=== PATIENT | female | born 1935 | race Hispanic/Latino ===

== ENCOUNTER 2016-07-14 00:21 | Inpatient (IN) | payer MEDICARE, BC ==
[2016-07-14] MEDS ORDERED: Vancomycin 1 gm/NS 200 ml 200 ML IVPB STA (00:53)
[2016-07-14] MEDS ORDERED: Aztreonam 2 GM in Sodium Chloride 0.9% 100 ML IVPB STA (00:53)
--- NOTE | 2016-07-14 00:59 | C.PDOC ---
History Of Present Illness 81F biba from snf for fever. pt denies any complaints, unable to provide further hx. Time Seen by Provider: 07/14/16 00:40 Chief Complaint (Nursing): Fever Past Medical History Vital Signs: Last Vital Signs Temp 99.3 F 07/17/16 04:00 Pulse 63 07/17/16 04:00 Resp 20 07/17/16 04:00 BP 93/47 L 07/17/16 10:44 Pulse Ox 100 07/17/16 04:00 - Medical History PMH: Anxiety, Arthritis, Back Problems, Gall Bladder Disease, HTN (STRESS TEST [address] DR RODRIGUEZ), Seizures (last one about 15 years ago) Surgical History: Appendectomy (at 20 years old), Cholecystectomy (around 1977) - [facility] Procedures ANESTH INJECT-SPIN CANAL (02/01/14) EXCISION OF ASCENDING COLON, ENDO, DIAGN (06/10/16) EXCISION OF SIGMOID COLON, ENDO, DIAGN (06/10/16) EXCISION OF TRANSVERSE COLON, ENDO, DIAGN (06/10/16) INJECT STEROID (11/29/14) INTRODUCTION OF ANTI-INFLAMMATORY INTO JOINTS, PERC APPROACH (06/10/16) SPINAL CANAL INJECT NEC (11/29/14) Family History: States: Unknown Family Hx - Social History Hx Tobacco Use: No Hx Alcohol Use: No Hx Substance Use: No - Immunization History Hx Tetanus Toxoid Vaccination: Yes Hx Influenza Vaccination: No Hx Pneumococcal Vaccination: No Review Of Systems Review Of Systems: ROS cannot be obtained secondary to pt's inabilty to answer questions. Physical Exam - Physical Exam Appears: No Acute Distress Skin: Warm, Dry Head: Atraumatic Eye(s): bilateral: PERRL, EOMI Oral Mucosa: Dry Neck: Normal ROM Cardiovascular: Rhythm Regular Respiratory: No Decreased Breath Sounds, No Accessory Muscle Use Gastrointestinal/Abdominal: Soft, No Tenderness, No Distention Extremity: No Swelling Pulses: Left Radial: Normal, Right Radial: Normal Neurological/Psych: Other (no focla deficits) ED Course And Treatment - Laboratory Results Result Diagrams: 07/17/16 06:36 07/17/16 06:36 O2 Sat by Pulse Oximetry: 90 Critical Care Time - Critical Care Note Total Time (in mins): 45 Documented critical care: time excludes all time spent performing seperately billable procedures. Endotracheal Intubation - Endotracheal Intubation Intubated With ETT Size: 7 (7.5) Blade Type Used: Curved (glide scope) Intubated: Orally Pre-Intubation Airway Assessment: Ventilated And Oxygenated Medications Used During Pre-Intubation: Etomidate Paralyzed With: Succinylcholine Post-Intubation Assessment: ETT Secured AT (cm): (23), Breath Sounds Equal Bilat , Placement Confirmed Via CXR, Color Change W/End Tidal CO2 Detector Medical Decision Making Medical Decision Making: cxr- mild venous congestion The pts BP improved w IVF bolus from low 80s to high 90s/100s 250am shortly after starting vanco the pt turned diffusely red and developed acute resp failure w spo2 into 60's and altered mental status. for this reason she was intubated emergently. esau padilla pcp dr valentine padilla ICU doctor for admission Disposition - Disposition Disposition: HOSPITALIZED Disposition Time: 03:12 Condition: GUARDED - Clinical Impression Clinical Impression: Sepsis, Acute respiratory failure
[2016-07-14 01:03] LABS: VENOUS BLOOD GAS BASE EXCESS -1.7 mmol/L (0.0-2.0); VENOUS BLOOD GAS PCO2 33 mmHg (40-60); VENOUS BLOOD PH 7.43 (7.32-7.43)
[2016-07-14 01:06] LABS: BASO # 0.1 K/uL (0.0-0.2); BASO % 0.2 % (0.0-2.0); EOS # 0.1 K/uL (0.0-0.7); EOS % 0.1 % (0.0-4.0); HEMATOCRIT 33.2 % (34.0-47.0); LYMPH # 1.1 K/uL (1.0-4.3); LYMPH % 3.1 % (20.0-40.0); MEAN CELL VOLUME 82.2 fL (81.0-99.0); MEAN CORPUSCULAR HEMOGLOBIN 27.8 pg (27.0-31.0); MEAN CORPUSCULAR HGB CONC 33.8 g/dL (33.0-37.0); MEAN PLATELET VOLUME 7.6 fL (7.2-11.7); MONO # 4.2 K/uL (0.0-0.8); MONO % 11.6 % (0.0-10.0); RED CELL DISTRIBUTION WIDTH 14.2 % (11.5-14.5)
[2016-07-14 01:13] LABS: PLATELET COUNT 308 K/uL (130-400); WHITE BLOOD COUNT 36.3 K/uL (4.8-10.8)
[2016-07-14 01:33] LABS: METAMYELOCYTE 4 % (0-0); MYELOCYTE 2 % (0-0); NEUTROPHIL 46 % (50-75); TOTAL CELLS COUNTED 100
[2016-07-14 01:45] LABS: INR 1.3
[2016-07-14 02:02] LABS: ALB/GLOB RATIO 0.9 (1.0-2.1); ALKALINE PHOSPHATASE 68 U/L (38-126); ALT/SGPT 18 U/L (9-52); AST/SGOT 39 U/L (14-36); BILIRUBIN,TOTAL 0.5 mg/dL (0.2-1.3); BLOOD UREA NITROGEN 21 mg/dL (7-17); CALCIUM 7.5 mg/dl (8.6-10.4); CARBON DIOXIDE 17 mmol/L (22-30); CHLORIDE 83 mmol/L (98-107); GFR AFRICAN-AMERICAN > 60; GLUCOSE,RANDOM 94 mg/dL (65-105); MAGNESIUM 1.5 mg/dL (1.6-2.3); PHOSPHOROUS 2.8 mg/dL (2.5-4.5); POTASSIUM 3.7 mmol/L (3.6-5.2); TOTAL PROTEIN 6.1 g/dL (6.3-8.3)
[2016-07-14 02:07] LABS: SODIUM 117 mmol/L (132-148)
[2016-07-14 02:25] LABS: URINE BILIRUBIN NEGATIVE (NEGATIVE); URINE BLOOD NEGATIVE (NEGATIVE); URINE COLOR Yellow (YELLOW); URINE GLUCOSE (UA) NORMAL (Normal); URINE KETONE NEGATIVE (NEGATIVE); URINE LEUKOCYTE ESTERASE NEG Leu/uL (Negative); URINE PROTEIN NEGATIVE (NEGATIVE); URINE UROBILINOGEN NORMAL mg/dL (0.2-1.0); WBC URINE 2 /hpf (0-5)
[2016-07-14] MEDS ORDERED: Midazolam 2 MG/2 ML VIAL ONE (03:03)
[2016-07-14] MEDS ORDERED: Midazolam 2 MG/2 ML VIAL IVP ONE (03:11)
[2016-07-14] MEDS ORDERED: DiphenhydrAMINE 50 mg/ml Inj IVP STA (03:15)
[2016-07-14] MEDS ORDERED: Succinylcholine Chloride 20 mg/ml Syr (5 ml) IV STA (03:27)
[2016-07-14] MEDS ORDERED: Etomidate 20 mg/10ml Inj IV ONE (03:27)
[2016-07-14] MEDS ORDERED: DiphenhydrAMINE 50 mg/ml Inj ONE (03:36)
--- NOTE | 2016-07-14 04:13 | CP.PCM.CON ---
History of Present Illness - History of Present Illness History of Present Illness: CCM 81 yo female with hx Arthritis /Anxiety /HTN /Seizures /Back problems /GB Dz , BIBA b/o fever. also c/o epigastric pain and nausea. + diarrhea and hx C.diff.Pt not giving much hx to ED staff per notes and code sepsis was activated. Started on Ab and after vanco started pt became red and had resp distress requiring intubation. Vanco stopped and pt given benadryl / steroids. Currently intubated and sedated and unable to give hx. Pt being sent for Brain and Abdomen CT. ROS_ as noted All- PCN / Influenza vaccine Social- no tob/ etoh/ drugs Meds- reviewed FH- Unknown PE T-97.7 P-90 R-16 BP 141/65 Intubated, sedated Pupils reactive Neck- no jvd Lungs- bilat bs Heart-rr aBd- bs+ , soft, nontender Ext-no edema Labs, ekg, [id number] A&P Acute Resp Failure Allergic Rxn Sepsis r/o C.Diff Colitis Hyponatremia Hx HTN Arthritis Hx Anxiety Hx Seizures Admit to ICU cont IV NS vent support check cultures Rx Cipro/flagyl check urine lytes /osm check serum osm/ repeat lactate/ BMP /ABG DVT & GI prophylaxis Past Patient History - Infectious Disease Hx of Infectious Diseases: None - Tetanus Immunizations Tetanus Immunization: Unknown, >10 years Ago - Past Medical History & Family History Past Medical History?: Yes - Past Social History Smoking Status: Never Smoked - CARDIAC Hx Hypertension: Yes (STRESS TEST [address] RODRIGUEZ) - PULMONARY Hx Respiratory Disorders: No - NEUROLOGICAL Hx Seizures: Yes (last one about 15 years ago) - HEENT Hx HEENT Problems: Yes Hx Cataracts: Yes - RENAL Hx Chronic Kidney Disease: No - ENDOCRINE/METABOLIC Hx Endocrine Disorders: No - HEMATOLOGICAL/ONCOLOGICAL Hx Blood Disorders: No - INTEGUMENTARY Hx Dermatological Problems: No - MUSCULOSKELETAL/RHEUMATOLOGICAL Hx Arthritis: Yes - GASTROINTESTINAL Hx Gall Bladder Disease: Yes - GENITOURINARY/GYNECOLOGICAL Hx Genitourinary Disorders: Yes Hx Incontinence: Yes - PSYCHIATRIC Hx Anxiety: Yes Hx Substance Use: No - SURGICAL HISTORY Hx Appendectomy: Yes (at 20 years old) Hx Cholecystectomy: Yes (around 1977) - ANESTHESIA Hx Anesthesia: Yes Hx Anesthesia Reactions: Yes (difficulty waking up) Hx Malignant Hyperthermia: No Meds Allergies/Adverse Reactions: Allergies Allergy/AdvReac Type Severity Reaction Status Date / Time Influenza Virus Vaccines Allergy COUGH Verified 07/14/16 01:03 Penicillins Allergy URTICARIA Verified 07/14/16 01:03 - Medications Medications: Current Medications Fentanyl Citrate 2,500 mcg/ (Sodium Chloride) 250 mls @ 5 mls/hr IV .Q24H YAMILETH; 50 MCG/HR PRN Reason: Protocol Results - Vital Signs Recent Vital Signs: Last Vital Signs Temp 97.7 F 07/14/16 02:03 Pulse 99 H 07/14/16 03:49 Resp 16 07/14/16 03:49 BP 141/65 07/14/16 03:49 Pulse Ox 97 07/14/16 03:49 - Labs Result Diagrams: 07/14/16 06:08 07/14/16 01:01 Assessment & Plan (1) Acute respiratory failure Status: Acute (2) Allergic reaction caused by a drug Status: Acute (3) Sepsis Status: Acute (4) Hyponatremia Status: Acute (5) Hypertension Status: Chronic Priority: Low
--- NOTE | 2016-07-14 04:38 | CT ---
EXAM: CT Head Without Intravenous Contrast. CLINICAL HISTORY: 81 years old, female; Pain; Other: Sepsis; Patient HX: 06-04-16; Additional info: AMS TECHNIQUE: Axial computed tomography images of the head/brain without intravenous contrast. This CT exam was performed using one or more of the following dose reduction techniques: automated exposure control, adjustment of the mA and/or kV according to patient size, and/or use of iterative reconstruction technique. COMPARISON: CT - HEAD W/O CONTRAST 06/04/2016 8:24:51 PM FINDINGS: Limitations: Motion artifact - mild. Streak artifact - mild. Brain: [id number] atrophy. No definite intracranial hemorrhage. No mass. Dilated perivascular space vs chronic lacunar infarct about RIGHT basal ganglia. No definite edema. Ventricles: No hydrocephalus. Bones/joints: No acute fracture. Soft tissues: Unremarkable. Sinuses: No acute sinusitis. Mastoid air cells: No mastoid effusion. Orbits: Unremarkable as visualized. Tubes, lines and devices: Endotracheal tube. IMPRESSION: 1. No definite acute intracranial abnormality. Acute infarction may be CT occult within first 24 hours. If a focal deficit persists, consider followup CT or MRI for further evaluation. 2. Incidental/non-acute findings are described above.
--- NOTE | 2016-07-14 04:48 | CT ---
EXAM: CT Abdomen and Pelvis Without Intravenous Contrast. CLINICAL HISTORY: 81 years old, female; Pain; Abdominal pain; Patient HX: 16; Additional info: Sepsis unclear source TECHNIQUE: Axial computed tomography images of the abdomen and pelvis without intravenous contrast. This CT exam was performed using one or more of the following dose reduction techniques: automated exposure control, adjustment of the mA and/or kV according to patient size, and/or use of iterative reconstruction technique. Coronal and sagittal reformatted images were created and reviewed. COMPARISON: No relevant prior studies available. FINDINGS: Limitations: Motion artifact - mild. Streak artifact - mild. Lack of intravenous contrast. Lower thorax: Trace bilateral pleural effusions. Mild peripheral atelectasis/scarring with minimal bronchiectasis. Mild interlobular septal thickening, nonspecific. Small hiatal hernia. ABDOMEN: Liver: Unremarkable. Gallbladder and bile ducts: Gallbladder not visualized. No ductal dilation. Pancreas: Unremarkable. No ductal dilation. Spleen: 6.0 x 4.6 x 4.7 cm peripherally calcified lesion. No splenomegaly. Adrenals: No mass. Kidneys and ureters: No renal calculi. No hydronephrosis. Stomach and bowel: Mild to moderate mural thickening of large bowel with few areas of sparing. Mild stranding within adjacent fat. Appendix: No findings to suggest acute appendicitis. PELVIS: Bladder: Collapsed bladder around Kowalski catheter, limiting evaluation. Reproductive: Unremarkable as visualized. ABDOMEN and PELVIS: Intraperitoneal space: No significant fluid collection. No free air. Bones/joints: RIGHT hip arthroplasty. Subacute to chronic T9 compression deformity. Degenerative changes of spine. Soft tissues: Unremarkable. Vasculature: Mild atherosclerotic disease. No abdominal aortic aneurysm. Lymph nodes: No pathologically enlarged lymph nodes. IMPRESSION: 1. Colitis, nonspecific. Consider inflammatory or infectious etiologies. 2. Splenic lesion, indeterminate. Consider nonemergent MRI. 3. Incidental/non-acute findings are described above.
[2016-07-14 05:45] LABS: ABG ALLEN TEST POS; ABG MECHANICAL RATE 14; ATERIAL BLOOD GAS PEEP 5; DRAW SITE LR
[2016-07-14] MEDS ORDERED: Sodium Chloride 0.9% 500 ML IV ONE (05:52)
[2016-07-14] MEDS: Sodium Chloride 0.9% 1,000 ML IV SCH ×4 (06:06→20:50)
[2016-07-14 06:16] LABS: BASO # 0.1 K/uL (0.0-0.2); BASO % 0.2 % (0.0-2.0); EOS % 0.1 % (0.0-4.0); HEMATOCRIT 38.5 % (34.0-47.0); LYMPH # 1.7 K/uL (1.0-4.3); LYMPH % 3.5 % (20.0-40.0); MEAN CELL VOLUME 82.7 fL (81.0-99.0); MEAN CORPUSCULAR HEMOGLOBIN 27.7 pg (27.0-31.0); MEAN CORPUSCULAR HGB CONC 33.5 g/dL (33.0-37.0); MEAN PLATELET VOLUME 8.2 fL (7.2-11.7); MONO # 4.5 K/uL (0.0-0.8); MONO % 8.9 % (0.0-10.0); PLATELET COUNT 406 K/uL (130-400); RED CELL DISTRIBUTION WIDTH 14.5 % (11.5-14.5)
[2016-07-14 06:24] LABS: WHITE BLOOD COUNT 50.1 K/uL (4.8-10.8)
[2016-07-14 06:28] LABS: POTASSIUM 3.5 mmol/L (3.6-5.2)
[2016-07-14 06:30] LABS: ALB/GLOB RATIO 0.7 (1.0-2.1); BILIRUBIN,TOTAL 0.9 mg/dL (0.2-1.3); TOTAL PROTEIN 5.5 g/dL (6.3-8.3)
[2016-07-14 06:31] LABS: CALCIUM 6.9 mg/dl (8.6-10.4); MAGNESIUM 1.6 mg/dL (1.6-2.3); PHOSPHOROUS 3.7 mg/dL (2.5-4.5)
[2016-07-14] MEDS ORDERED: Sodium Chloride 0.9% 1,000 ML IV ONE (06:36)
[2016-07-14] MEDS ORDERED: Ciprofloxacin 400mg/200ml D5W 200 ML IVPB SCH (06:45)
[2016-07-14 06:58] LABS: THYROID STIMULATING HORMONE 7.83 mIU/L (0.46-4.68)
[2016-07-14] MEDS: metroNIDAZOLE IV 500 mg/100 ml 100 ML IVPB SCH ×3 (07:02→21:57)
[2016-07-14 08:03] LABS: METAMYELOCYTE 1 % (0-0); MYELOCYTE 2 % (0-0); NEUTROPHIL 31 % (50-75); REACTIVE LYMPHOCYTES 1 % (0-0); TOTAL CELLS COUNTED 100
[2016-07-14 08:05] LABS: GIANT PLATELETS PRESENT; LARGE PLATELETS PRESENT; PLATELET CLUMPS PRESENT
[2016-07-14] MEDS ORDERED: Potassium Chloride 20 mEq 100 ML IVPB ONE ×2 (08:52→09:42)
--- NOTE | 2016-07-14 08:59 | RAD ---
HISTORY: Sepsis Patient COMPARISON: 06/04/2016 FINDINGS: LUNGS: Developing hazy opacity overlying the right upper lobe. Mild opacities in the lung bases. PLEURA: No significant pleural effusion identified, no pneumothorax apparent.Biapical pleural parenchymal thickening noted. CARDIOVASCULAR: Normal. OSSEOUS STRUCTURES: The osseous structures demonstrate degenerative changes. VISUALIZED UPPER ABDOMEN: Rounded opacity overlying the projection of the subdiaphragmatic left upper abdomen, stable. Otherwise the abdomen remains suboptimally seen. OTHER FINDINGS: None. IMPRESSION: Developing hazy opacity overlying the right upper lobe. Infectious etiologies can be considered. Follow-up should be obtained.
--- NOTE | 2016-07-14 09:07 | RAD ---
HISTORY: tube placement COMPARISON: 07/14/2016 FINDINGS: LUNGS: Hazy opacity in the right upper lobe. PLEURA: No significant pleural effusion identified, no pneumothorax apparent. CARDIOVASCULAR: Stable cardiomediastinal silhouette. Tortuous ascending aorta. OSSEOUS STRUCTURES: The osseous structures demonstrate degenerative changes. VISUALIZED UPPER ABDOMEN: Upper abdomen is suboptimally evaluated. Rounded opacity overlying the projection of the spleen again seen. OTHER FINDINGS: Interval introduction of endotracheal tube with the distal tip above the tracheal bifurcation. IMPRESSION: Interval introduction of endotracheal tube with the distal tip above the tracheal bifurcation. Other findings as above.
--- NOTE | 2016-07-14 09:18 | RAD ---
HISTORY: TLC placement COMPARISON: 07/14/2016. FINDINGS: LUNGS: Re- demonstration of possible hazy opacity in the right upper lobe. PLEURA: No significant pleural effusion identified, no pneumothorax apparent. CARDIOVASCULAR: Normal. OSSEOUS STRUCTURES: The osseous structures demonstrate degenerative changes. VISUALIZED UPPER ABDOMEN: Upper abdomen is suboptimally evaluated. Re- demonstration of a circular opacity in the left upper quadrant. OTHER FINDINGS: Interval introduction of presumed vascular catheter with the distal tip overlying the projection of the expected location of the SVC. IMPRESSION: Findings as above.
[2016-07-14] MEDS: Vancomycin 125 MG/5 ML SOLN (ORAL/RECTAL) PO SCH ×4 (11:04→21:59)
[2016-07-14] MEDS: Imipenem/Cilastatin 250 MG in Sodium Chloride 100 ML IVPB SCH ×3 (12:18→23:30)
--- NOTE | 2016-07-14 12:24 | CP.PCM.CON ---
History of Present Illness - History of Present Illness History of Present Illness: CC: Sepsis HPI: Patient admitted overnight with septic shock, intubated, diarrhea, marked leukocytosis. Patient discharged from one month ago. We consulted on the patient at that admission for diarrhea and colon distension. Multiple stools for CDiff were negative, and patient had not been on antibiotics. A colonoscopy was performed and was essentially unremarkable, and numerous biopsies from the colon were nondiagnostic. Stool electrolytes showed an osmotic gap of 200, consistent with osmotic diarrhea. The diarrhea and abdominal distension on that admission resolved with conservative therapy. Now the patient is intubated, on pressors, and appears to be septic. CT Abdomen shows mild colon thickening, possibly consistent with Colitis. She also has Phillips's Esophagus, and a longstanding history of chronic constipation, dependent on Linzess and Miralax, followed by Dr Lau in [place]. Review of Systems - Review of Systems Systems not reviewed;Unavailable: Unstable Vital Signs, Intubated Past Patient History - Infectious Disease Hx of Infectious Diseases: None - Tetanus Immunizations Tetanus Immunization: Unknown, >10 years Ago - Past Medical History & Family History Past Medical History?: Yes - Past Social History Smoking Status: Never Smoked Alcohol: None - CARDIAC Hx Hypertension: Yes (STRESS TEST [address] DR RODRIGUEZ) - PULMONARY Hx Respiratory Disorders: No - NEUROLOGICAL Hx Seizures: Yes (last one about 15 years ago) - HEENT Hx HEENT Problems: Yes Hx Cataracts: Yes - RENAL Hx Chronic Kidney Disease: No - ENDOCRINE/METABOLIC Hx Endocrine Disorders: No - HEMATOLOGICAL/ONCOLOGICAL Hx Blood Disorders: No - INTEGUMENTARY Hx Dermatological Problems: No - MUSCULOSKELETAL/RHEUMATOLOGICAL Hx Arthritis: Yes - GASTROINTESTINAL Hx Gall Bladder Disease: Yes - GENITOURINARY/GYNECOLOGICAL Hx Genitourinary Disorders: Yes Hx Incontinence: Yes - PSYCHIATRIC Hx Anxiety: Yes Hx Substance Use: No - SURGICAL HISTORY Hx Appendectomy: Yes (at 20 years old) Hx Cholecystectomy: Yes (around 1977) - ANESTHESIA Hx Anesthesia: Yes Hx Anesthesia Reactions: Yes (difficulty waking up) Hx Malignant Hyperthermia: No Meds Allergies/Adverse Reactions: Allergies Allergy/AdvReac Type Severity Reaction Status Date / Time Influenza Virus Vaccines Allergy COUGH Verified 07/14/16 01:03 Penicillins Allergy URTICARIA Verified 07/14/16 01:03 vancomycin Allergy Verified 07/14/16 07:09 - Medications Medications: Current Medications Acetaminophen (Tylenol 325mg Tab) 650 mg PO Q4 PRN PRN Reason: Fever >100.4 F Famotidine (Pepcid) 20 mg IVP Q12 [facility] Last Admin: 07/14/16 09:52 Dose: 20 mg Heparin Sodium (Porcine) (Heparin) 5,000 units SC Q8 [facility] Last Admin: 07/14/16 06:08 Dose: 5,000 units Sodium Chloride (Sodium Chloride 0.9%) 1,000 mls @ 200 mls/hr IV .Q5H [facility] Last Admin: 07/14/16 08:00 Dose: 200 mls/hr Metronidazole (Flagyl) 100 mls @ 100 mls/hr IVPB Q8 [facility] Last Admin: 07/14/16 07:02 Dose: 100 mls/hr Norepinephrine Bitartrate 4 mg (/ Sodium Chloride) 254 mls @ 15.24 mls/hr IV .[id number] PRN; Protocol; 4 MCG/MIN PRN Reason: TITRATE PER MD ORDER Last Titration: 07/14/16 10:32 Dose: 6 mcg/min Imipenem/Cilastatin Sodium 250 (mg/ Sodium Chloride) 100 mls @ 100 mls/hr IVPB Q6H [facility] Last Admin: 07/14/16 12:18 Dose: 100 mls/hr Vancomycin HCl (Vancocin (Oral Or Rectal Use)) 500 mg PO QID [facility] Last Admin: 07/14/16 11:04 Dose: 500 mg Physical Exam - Constitutional Appears: Toxic, In Acute Distress Additional comments: Pale - Head Exam Head Exam: NORMOCEPHALIC - Eye Exam Eye Exam: absent: Scleral icterus - ENT Exam ENT Exam: Mucous Membranes Dry Additional comments: ETT - Neck Exam Neck exam: Positive for: Normal Inspection - Respiratory Exam Respiratory Exam: Decreased Breath Sounds - Cardiovascular Exam Cardiovascular Exam: Tachycardia, REGULAR RHYTHM - GI/Abdominal Exam GI & Abdominal Exam: Hypoactive Bowel Sounds, Soft. absent: Distended, Mass, Tenderness - Rectal Exam Rectal Exam: Deferred - Extremities Exam Extremities exam: Positive for: normal inspection - Neurological Exam Neurological exam: Altered Additional comments: Sedated - Psychiatric Exam Additional comments: Unable to assess - Skin Skin Exam: Pallor Results - Vital Signs Recent Vital Signs: Last Vital Signs Temp 99.1 F 07/14/16 08:00 Pulse 72 07/14/16 09:42 Resp 14 07/14/16 09:42 BP 80/42 L 07/14/16 09:42 Pulse Ox 100 07/14/16 09:42 - Labs Result Diagrams: 07/14/16 06:08 07/14/16 06:08 Labs: Laboratory Results - last 24 hr 07/14/16 07/14/16 07/14/16 05:25 06:08 06:14 WBC 50.1 H* RBC 4.66 Hgb 12.9 Hct 38.5 MCV 82.7 MCH 27.7 MCHC 33.5 RDW 14.5 Plt Count 406 H MPV 8.2 Neut % (Auto) 87.3 H Lymph % (Auto) 3.5 L Victoria % (Auto) 8.9 Eos % (Auto) 0.1 Baso % (Auto) 0.2 Neut # 43.8 H Lymph # 1.7 Victoria # 4.5 H Eos # 0.0 Baso # 0.1 Neutrophils % (Manual) 31 L Band Neutrophils % 55 H* Lymphocytes % (Manual) 2 L Reactive Lymphs % 1 H Monocytes % (Manual) 8 Metamyelocytes % 1 H Myelocytes % 2 H Toxic Granulation Present Dohle Bodies Present Anayeli Rods Platelet Estimate Slightly increased H Plt Clumps, EDTA Present Large Platelets Present Giant Platelets Present Poikilocytosis (manual Slight Ovalocytes Slight Smear Path Review Puncture Site Lr pCO2 29 L pO2 312 H HCO3 18.6 L ABG pH 7.35 ABG Total CO2 16.9 L ABG O2 Saturation 100.0 H ABG Base Excess -8.2 L Wesley Test Pos ABG Potassium 3.3 L A-a O2 Difference 365.0 Respiratory Index 1.2 Sodium 122.0 L 118 L* Chloride 96.0 L 87 L Glucose 107 H Lactate 2.0 Mechanical Rate 14 FiO2 100.0 Tidal Volume 500 PEEP 5 Potassium 3.5 L Carbon Dioxide 17 L Anion Gap 18 BUN 23 H Creatinine 1.1 Est GFR ( Amer) 58 Est GFR (Non-Af Amer) 48 Random Glucose 112 H Serum Osmolality 259 L Lactic Acid 1.9 Calcium 6.9 L Phosphorus 3.7 Magnesium 1.6 Total Bilirubin 0.9 AST 49 H D ALT 26 Alkaline Phosphatase 68 Total Protein 5.5 L Albumin 2.3 L D Globulin 3.2 Albumin/Globulin Ratio 0.7 L TSH 3rd Generation 7.83 H Arterial Blood Potassium 3.3 L Urine Osmolality Ur Random Sodium Influenza Typ A,B (EIA) 07/14/16 07/14/16 07/14/16 06:21 07:57 10:43 WBC RBC Hgb Hct MCV MCH MCHC RDW Plt Count MPV Neut % (Auto) Lymph % (Auto) Victoria % (Auto) Eos % (Auto) Baso % (Auto) Neut # Lymph # Victoria # Eos # Baso # Neutrophils % (Manual) Band Neutrophils % Lymphocytes % (Manual) Reactive Lymphs % Monocytes % (Manual) Metamyelocytes % Myelocytes % Toxic Granulation Dohle Bodies Anayeli Rods Platelet Estimate Plt Clumps, EDTA Large Platelets Giant Platelets Poikilocytosis (manual Ovalocytes Smear Path Review Puncture Site pCO2 pO2 HCO3 ABG pH ABG Total CO2 ABG O2 Saturation ABG Base Excess Wesley Test ABG Potassium A-a O2 Difference Respiratory Index Sodium Chloride Glucose Lactate Mechanical Rate FiO2 Tidal Volume PEEP Potassium Carbon Dioxide Anion Gap BUN Creatinine Est GFR ( Amer) Est GFR (Non-Af Amer) Random Glucose Serum Osmolality 261 L Lactic Acid Calcium Phosphorus Magnesium Total Bilirubin AST ALT Alkaline Phosphatase Total Protein Albumin Globulin Albumin/Globulin Ratio TSH 3rd Generation Arterial Blood Potassium Urine Osmolality 275 L Ur Random Sodium 7 Influenza Typ A,B (EIA) Negative for flu a/b Assessment & Plan (1) Acute respiratory failure Assessment and Plan: On Vent, in ICU. Managed by critical are attending. Status: Acute (2) Hyponatremia Assessment and Plan: Very Hyponatremic. Fluid management per primary and critical care team. Status: Acute (3) Sepsis Assessment and Plan: Marked leukocytosis, septic shock. Need to cover for possible CDiff colitis, and patient is appropriately begun on PO Vanco + IV Flagyl. Abdominal exam is benign, and CT does not show major bowel abnormalities. Status: Acute (4) GERD (gastroesophageal reflux disease) Assessment and Plan: Presently stable. halfway PPI use. Status: Chronic Priority: Medium
--- NOTE | 2016-07-14 12:58 | CARD ---
APPROVED REPORT EKG Measurement Heart [id number] <Conclusion> Normal sinus rhythm Normal ECG
[2016-07-14] MEDS ORDERED: Sodium Chloride 0.9% 1,000 ML IV SCH (13:04)
[2016-07-14 14:07] LABS: BASO # 0.2 K/uL (0.0-0.2); BASO % 0.4 % (0.0-2.0); HEMATOCRIT 36.7 % (34.0-47.0); LYMPH # 1.2 K/uL (1.0-4.3); MEAN CELL VOLUME 82.8 fL (81.0-99.0); MEAN CORPUSCULAR HEMOGLOBIN 26.7 pg (27.0-31.0); MEAN CORPUSCULAR HGB CONC 32.3 g/dL (33.0-37.0); MONO # 2.2 K/uL (0.0-0.8); MONO % 3.8 % (0.0-10.0); PLATELET COUNT 369 K/uL (130-400); RED CELL DISTRIBUTION WIDTH 14.9 % (11.5-14.5)
[2016-07-14 14:12] LABS: CHLORIDE 92 mmol/L (98-107); SODIUM 122 mmol/L (132-148)
[2016-07-14 14:15] LABS: ALB/GLOB RATIO 0.7 (1.0-2.1); ALKALINE PHOSPHATASE 64 U/L (38-126); AST/SGOT 34 U/L (14-36); BILIRUBIN,TOTAL 0.3 mg/dL (0.2-1.3); BLOOD UREA NITROGEN 21 mg/dL (7-17); CARBON DIOXIDE 18 mmol/L (22-30); GFR AFRICAN-AMERICAN > 60; TOTAL PROTEIN 5.2 g/dL (6.3-8.3)
[2016-07-14 14:16] LABS: ALT/SGPT 28 U/L (9-52); CALCIUM 6.3 mg/dl (8.6-10.4); GLUCOSE,RANDOM 147 mg/dL (65-105); MAGNESIUM 2.1 mg/dL (1.6-2.3)
[2016-07-14 14:31] LABS: METAMYELOCYTE 2 % (0-0); MYELOCYTE 2 % (0-0); NEUTROPHIL 40 % (50-75); TOTAL CELLS COUNTED 100
[2016-07-14 14:32] LABS: LARGE PLATELETS PRESENT
--- NOTE | 2016-07-15 01:01 | CP.PCM.CON ---
History of Present Illness - History of Present Illness History of Present Illness: INFECTIOUS DISEASE CONSULTATION DICTATED #[id number] EDEN VERA MD, FACP 07/14/2016 ICU 6 SEE DICTATED CONSULTATION AND DISCUSSION WITH DR SAKSHI COLE STABILIZE, IV FLUIDS, AND LAB EVALUATION CONSIDER SURGICAL CONSULTATION WITH DR ESPINAL OF NOTE, BOTH HIS FAMILY AND STAFF MENTION THAT HER REHAB/LONG TERM SHE WAS "SELF TAKING" IMODIUM! THANK YOU Candis VERA MD. FACP Past Patient History - Infectious Disease Hx of Infectious Diseases: None - Tetanus Immunizations Tetanus Immunization: Unknown, >10 years Ago - Past Medical History & Family History Past Medical History?: Yes - Past Social History Smoking Status: Never Smoked Alcohol: None - CARDIAC Hx Hypertension: Yes (STRESS TEST 2014 DR RODRIGUEZ) - PULMONARY Hx Respiratory Disorders: No - NEUROLOGICAL Hx Seizures: Yes (last one about 15 years ago) - HEENT Hx HEENT Problems: Yes Hx Cataracts: Yes - RENAL Hx Chronic Kidney Disease: No - ENDOCRINE/METABOLIC Hx Endocrine Disorders: No - HEMATOLOGICAL/ONCOLOGICAL Hx Blood Disorders: No - INTEGUMENTARY Hx Dermatological Problems: No - MUSCULOSKELETAL/RHEUMATOLOGICAL Hx Arthritis: Yes - GASTROINTESTINAL Hx Gall Bladder Disease: Yes - GENITOURINARY/GYNECOLOGICAL Hx Genitourinary Disorders: Yes Hx Incontinence: Yes - PSYCHIATRIC Hx Anxiety: Yes Hx Substance Use: No - SURGICAL HISTORY Hx Appendectomy: Yes (at 20 years old) Hx Cholecystectomy: Yes (around 1977) - ANESTHESIA Hx Anesthesia: Yes Hx Anesthesia Reactions: Yes (difficulty waking up) Hx Malignant Hyperthermia: No Meds Allergies/Adverse Reactions: Allergies Allergy/AdvReac Type Severity Reaction Status Date / Time Influenza Virus Vaccines Allergy COUGH Verified 07/14/16 01:03 Penicillins Allergy URTICARIA Verified 07/14/16 01:03 vancomycin Allergy Verified 07/14/16 07:09 - Medications Medications: Current Medications Acetaminophen (Tylenol 325mg Tab) 650 mg PO Q4 PRN PRN Reason: Fever >100.4 F Famotidine (Pepcid) 20 mg IVP Q12 [facility] Last Admin: 07/14/16 21:57 Dose: 20 mg Heparin Sodium (Porcine) (Heparin) 5,000 units SC Q8 [facility] Last Admin: 07/14/16 21:58 Dose: 5,000 units Metronidazole (Flagyl) 100 mls @ 100 mls/hr IVPB Q8 [facility] Last Admin: 07/14/16 21:57 Dose: 100 mls/hr Norepinephrine Bitartrate 4 mg (/ Sodium Chloride) 254 mls @ 15.24 mls/hr IV .[id number] PRN; Protocol; 4 MCG/MIN PRN Reason: TITRATE PER MD ORDER Last Admin: 07/14/16 18:25 Dose: 30.48 mls/hr Imipenem/Cilastatin Sodium 250 (mg/ Sodium Chloride) 100 mls @ 100 mls/hr IVPB Q6H [facility] Last Admin: 07/14/16 23:30 Dose: 100 mls/hr Sodium Chloride (Sodium Chloride 0.9%) 1,000 mls @ 125 mls/hr IV .Q8H [facility] Last Admin: 07/14/16 20:50 Dose: 125 mls/hr Vancomycin HCl (Vancocin (Oral Or Rectal Use)) 500 mg PO QID [facility] Last Admin: 07/14/16 21:59 Dose: 500 mg Results - Vital Signs Recent Vital Signs: Last Vital Signs Temp 97.9 F 07/14/16 16:00 Pulse 80 07/14/16 19:00 Resp 15 07/14/16 19:00 BP 107/43 L 07/14/16 18:57 Pulse Ox 95 07/14/16 19:00 - Labs Result Diagrams: 07/17/16 06:36 07/17/16 06:36 Labs: Laboratory Results - last 24 hr 07/14/16 07/14/16 07/14/16 05:25 06:08 06:14 WBC 50.1 H* RBC 4.66 Hgb 12.9 Hct 38.5 MCV 82.7 MCH 27.7 MCHC 33.5 RDW 14.5 Plt Count 406 H MPV 8.2 Neut % (Auto) 87.3 H Lymph % (Auto) 3.5 L [place] % (Auto) 8.9 Eos % (Auto) 0.1 Baso % (Auto) 0.2 Neut # 43.8 H Lymph # 1.7 [place] # 4.5 H Eos # 0.0 Baso # 0.1 Neutrophils % (Manual) 31 L Band Neutrophils % 55 H* Lymphocytes % (Manual) 2 L Reactive Lymphs % 1 H Monocytes % (Manual) 8 Metamyelocytes % 1 H Myelocytes % 2 H Toxic Granulation Present Dohle Bodies Present Anayeli Rods Platelet Estimate Slightly increased H Plt Clumps, EDTA Present Large Platelets Present Giant Platelets Present Poikilocytosis (manual Slight Ovalocytes Slight [place] Cells Smear Path Review Puncture Site Lr pCO2 29 L pO2 312 H HCO3 18.6 L ABG pH 7.35 ABG Total CO2 16.9 L ABG O2 Saturation 100.0 H ABG Base Excess -8.2 L Wesley Test Pos ABG Potassium 3.3 L A-a O2 Difference 365.0 Respiratory Index 1.2 Sodium 122.0 L 118 L* Chloride 96.0 L 87 L Glucose 107 H Lactate 2.0 Mechanical Rate 14 FiO2 100.0 Tidal Volume 500 PEEP 5 Potassium 3.5 L Carbon Dioxide 17 L Anion Gap 18 BUN 23 H Creatinine 1.1 Est GFR ( Amer) 58 Est GFR (Non-Af Amer) 48 Random Glucose 112 H Serum Osmolality 259 L Lactic Acid 1.9 Calcium 6.9 L Phosphorus 3.7 Magnesium 1.6 Total Bilirubin 0.9 AST 49 H D ALT 26 Alkaline Phosphatase 68 Total Protein 5.5 L Albumin 2.3 L D Globulin 3.2 Albumin/Globulin Ratio 0.7 L TSH 3rd Generation 7.83 H Arterial Blood Potassium 3.3 L Urine Osmolality Ur Random Sodium Influenza Typ A,B (EIA) 07/14/16 07/14/16 07/14/16 06:21 07:57 10:43 WBC RBC Hgb Hct MCV MCH MCHC RDW Plt Count MPV Neut % (Auto) Lymph % (Auto) [place] % (Auto) Eos % (Auto) Baso % (Auto) Neut # Lymph # [place] # Eos # Baso # Neutrophils % (Manual) Band Neutrophils % Lymphocytes % (Manual) Reactive Lymphs % Monocytes % (Manual) Metamyelocytes % Myelocytes % Toxic Granulation Dohle Bodies Anayeli Rods Platelet Estimate Plt Clumps, EDTA Large Platelets Giant Platelets Poikilocytosis (manual Ovalocytes Kimmy Cells Smear Path Review Puncture Site pCO2 pO2 HCO3 ABG pH ABG Total CO2 ABG O2 Saturation ABG Base Excess [place] Test ABG Potassium A-a O2 Difference Respiratory Index Sodium Chloride Glucose Lactate Mechanical Rate FiO2 Tidal Volume PEEP Potassium Carbon Dioxide Anion Gap BUN Creatinine Est GFR ( Amer) Est GFR (Non-Af Amer) Random Glucose Serum Osmolality 261 L Lactic Acid Calcium Phosphorus Magnesium Total Bilirubin AST ALT Alkaline Phosphatase Total Protein Albumin Globulin Albumin/Globulin Ratio TSH 3rd Generation Arterial Blood Potassium Urine Osmolality 275 L Ur Random Sodium 7 Influenza Typ A,B (EIA) Negative for flu a/b 07/14/16 13:55 WBC 59.0 H* RBC 4.43 Hgb 11.8 Hct 36.7 MCV 82.8 MCH 26.7 L MCHC 32.3 L RDW 14.9 H Plt Count 369 MPV 8.0 Neut % (Auto) 93.8 H Lymph % (Auto) 2.0 L [place] % (Auto) 3.8 Eos % (Auto) 0.0 Baso % (Auto) 0.4 Neut # 55.4 H Lymph # 1.2 [place] # 2.2 H Eos # 0.0 Baso # 0.2 Neutrophils % (Manual) 40 L Band Neutrophils % 49 H* Lymphocytes % (Manual) 1 L Reactive Lymphs % Monocytes % (Manual) 6 Metamyelocytes % 2 H Myelocytes % 2 H Toxic Granulation Present Dohle Bodies Present Anayeli Rods Platelet Estimate Normal Plt Clumps, EDTA Large Platelets Present Giant Platelets Poikilocytosis (manual Slight Ovalocytes [place] Cells Slight Smear Path Review Puncture Site pCO2 pO2 HCO3 ABG pH ABG Total CO2 ABG O2 Saturation ABG Base Excess [place] Test ABG Potassium A-a O2 Difference Respiratory Index Sodium 122 L Chloride 92 L Glucose Lactate Mechanical Rate FiO2 Tidal Volume PEEP Potassium 4.0 Carbon Dioxide 18 L Anion Gap 16 BUN 21 H Creatinine 0.9 Est GFR ( Amer) > 60 Est GFR (Non-Af Amer) > 60 Random Glucose 147 H Serum Osmolality Lactic Acid Calcium 6.3 L Phosphorus Magnesium 2.1 Total Bilirubin 0.3 AST 34 ALT 28 Alkaline Phosphatase 64 Total Protein 5.2 L Albumin 2.2 L Globulin 3.0 Albumin/Globulin Ratio 0.7 L TSH 3rd Generation Arterial Blood Potassium Urine Osmolality Ur Random Sodium Influenza Typ A,B (EIA)
--- NOTE | 2016-07-15 02:32 | CP.PCM.HP ---
History of Present Illness - History of Present Illness History of Present Illness: Chief complaint: Shortness of breath. History present illness: 80-year-old female with history of seasonal disorder, chronic constipation, history of gastroesophageal reflux disease, osteoarthritis, multiple joint replacement surgery, hospitalized recently with a fall, injury. Again patient was hospitalized with the colitis, abdominal distention. Patient was discharged to the rehabitation, and she was doing well, she was able to be discharged, she started having high fever, chills, and shortness of breath. Patient was immediately transferred to the [facility] emergency room, in the emergency room patient was noted to have respiratory distress, high fever, and chills, and the patient was hospitalized, and intubated in the emergency room. Because of the current condition change in her situation patient needed respirated monitoring, and ventilator support. Patient was initially hospitalized to the intensive care unit. Upon admission to the ICU. Patient was in severe hypotension, also having high fevers, chills. Patient was also having elevated WBC. Patient was hospitalized with the diagnosis of possible acute septic shock and respiratory failure and underlying colitis could not be ruled out at that time. Past medical history: Multiple arthritis problems, chronic constipation, chronic back problem, hypertension, seizure disorder. Surgical history: Appendectomy, cholecystectomy, joint replacement. Both the knee and hips, history of hysterectomy Allergy: Penicillin, influenza vaccine. Patient while she was receiving vancomycin intravenously in the emergency room currently. She become more respirated distance, and she become more intimate as , hypertensive, acute respiratory distress, following that the patient was intubated. Personal history: Lifelong nonsmoker, nonalcoholic the patient lives with family members currently living in residential Review of systems: Patient is somewhat drowsy, sleepy at this time, on mechanical ventilator with sedation. The blood pressure is on the low side, supported with medications. Otherwise patient is moving. Following commands otherwise. Diarrhea noted. Leg swelling noted. On examination: Vital signs reviewed. Blood pressure is on the low side. Patient is on ventilator, also. Her to ventilation currently. Chest good air entry bilaterally regular heart sound. Nontender abdomen. Edema noted bilaterally. Patient's labs reviewed. Chest x-ray showing evidence of bilateral lower lung atelectasis. WBC highly elevated. Otherwise nonspecific labs. Assessment/recommendation: 80-year-old female with history of seizure disorder, chronic constipation, hypertension, history of esophageal reflux disease, osteoarthritis, multiple joint replacement surgery recently hospitalized with acute colitis came to the emergency room currently from the residential with a sudden onset of febrile illness, condition, treated with acute respiratory failure following intravenous vancomycin injection, needing ventilator and respiratory support. Patient is currently having possible severe septic shock associate with the elevated white count and fever. Underlying colitis is possible. The start the patient on Flagyl, by mouth vancomycin, rectal vancomycin, infectious disease evaluation, ventilator support. IV fluid, fluid hydration, and the resuscitation. Overall prognosis is guarded. Spoke to the patient's brother and will follow the patient. Present on Admission - Present on Admission Any Indicators Present on Admission: No History of DVT/PE: No History of Uncontrolled Diabetes: No Urinary Catheter: No Decubitus Ulcer Present: No Past Patient History - Infectious Disease Hx of Infectious Diseases: None - Tetanus Immunizations Tetanus Immunization: Unknown, >10 years Ago - Past Medical History & Family History Past Medical History?: Yes - Past Social History Smoking Status: Never Smoked Alcohol: None - CARDIAC Hx Hypertension: Yes (STRESS TEST [address] DR RODRIGUEZ) - PULMONARY Hx Respiratory Disorders: No - NEUROLOGICAL Hx Seizures: Yes (last one about 15 years ago) - HEENT Hx HEENT Problems: Yes Hx Cataracts: Yes - RENAL Hx Chronic Kidney Disease: No - ENDOCRINE/METABOLIC Hx Endocrine Disorders: No - HEMATOLOGICAL/ONCOLOGICAL Hx Blood Disorders: No - INTEGUMENTARY Hx Dermatological Problems: No - MUSCULOSKELETAL/RHEUMATOLOGICAL Hx Arthritis: Yes - GASTROINTESTINAL Hx Gall Bladder Disease: Yes - GENITOURINARY/GYNECOLOGICAL Hx Genitourinary Disorders: Yes Hx Incontinence: Yes - PSYCHIATRIC Hx Anxiety: Yes Hx Substance Use: No - SURGICAL HISTORY Hx Appendectomy: Yes (at 20 years old) Hx Cholecystectomy: Yes (around 1977) - ANESTHESIA Hx Anesthesia: Yes Hx Anesthesia Reactions: Yes (difficulty waking up) Hx Malignant Hyperthermia: No Meds Allergies/Adverse Reactions: Allergies Allergy/AdvReac Type Severity Reaction Status Date / Time Influenza Virus Vaccines Allergy COUGH Verified 07/14/16 01:03 Penicillins Allergy URTICARIA Verified 07/14/16 01:03 vancomycin Allergy Verified 07/14/16 07:09 Results - Vital Signs Recent Vital Signs: Last Vital Signs Temp 97.9 F 07/14/16 16:00 Pulse 80 07/14/16 19:00 Resp 15 07/14/16 19:00 BP 107/43 L 03/15/17 18:57 Pulse Ox 95 07/14/16 19:00 - Labs Result Diagrams: 07/27/16 13:35 07/27/16 13:35 Labs: Laboratory Results - last 24 hr 07/14/16 07/14/16 07/14/16 05:25 06:08 06:14 WBC 50.1 H* RBC 4.66 Hgb 12.9 Hct 38.5 MCV 82.7 MCH 27.7 MCHC 33.5 RDW 14.5 Plt Count 406 H MPV 8.2 Neut % (Auto) 87.3 H Lymph % (Auto) 3.5 L [place] % (Auto) 8.9 Eos % (Auto) 0.1 Baso % (Auto) 0.2 Neut # 43.8 H Lymph # 1.7 [place] # 4.5 H Eos # 0.0 Baso # 0.1 Neutrophils % (Manual) 31 L Band Neutrophils % 55 H* Lymphocytes % (Manual) 2 L Reactive Lymphs % 1 H Monocytes % (Manual) 8 Metamyelocytes % 1 H Myelocytes % 2 H Toxic Granulation Present Dohle Bodies Present Anayeli Rods Platelet Estimate Slightly increased H Plt Clumps, EDTA Present Large Platelets Present Giant Platelets Present Poikilocytosis (manual Slight Ovalocytes Slight [place] Cells Smear Path Review Puncture Site Lr pCO2 29 L pO2 312 H HCO3 18.6 L ABG pH 7.35 ABG Total CO2 16.9 L ABG O2 Saturation 100.0 H ABG Base Excess -8.2 L Wesley Test Pos ABG Potassium 3.3 L A-a O2 Difference 365.0 Respiratory Index 1.2 Sodium 122.0 L 118 L* Chloride 96.0 L 87 L Glucose 107 H Lactate 2.0 Mechanical Rate 14 FiO2 100.0 Tidal Volume 500 PEEP 5 Potassium 3.5 L Carbon Dioxide 17 L Anion Gap 18 BUN 23 H Creatinine 1.1 Est GFR ( Amer) 58 Est GFR (Non-Af Amer) 48 Random Glucose 112 H Serum Osmolality 259 L Lactic Acid 1.9 Calcium 6.9 L Phosphorus 3.7 Magnesium 1.6 Total Bilirubin 0.9 AST 49 H D ALT 26 Alkaline Phosphatase 68 Total Protein 5.5 L Albumin 2.3 L D Globulin 3.2 Albumin/Globulin Ratio 0.7 L TSH 3rd Generation 7.83 H Arterial Blood Potassium 3.3 L Urine Osmolality Ur Random Sodium Influenza Typ A,B (EIA) 07/14/16 07/14/16 07/14/16 06:21 07:57 10:43 WBC RBC Hgb Hct MCV MCH MCHC RDW Plt Count MPV Neut % (Auto) Lymph % (Auto) [place] % (Auto) Eos % (Auto) Baso % (Auto) Neut # Lymph # [place] # Eos # Baso # Neutrophils % (Manual) Band Neutrophils % Lymphocytes % (Manual) Reactive Lymphs % Monocytes % (Manual) Metamyelocytes % Myelocytes % Toxic Granulation Dohle Bodies Anayeli Rods Platelet Estimate Plt Clumps, EDTA Large Platelets Giant Platelets Poikilocytosis (manual Ovalocytes Kimmy Cells Smear Path Review Puncture Site pCO2 pO2 HCO3 ABG pH ABG Total CO2 ABG O2 Saturation ABG Base Excess Wesley Test ABG Potassium A-a O2 Difference Respiratory Index Sodium Chloride Glucose Lactate Mechanical Rate FiO2 Tidal Volume PEEP Potassium Carbon Dioxide Anion Gap BUN Creatinine Est GFR ( Amer) Est GFR (Non-Af Amer) Random Glucose Serum Osmolality 261 L Lactic Acid Calcium Phosphorus Magnesium Total Bilirubin AST ALT Alkaline Phosphatase Total Protein Albumin Globulin Albumin/Globulin Ratio TSH 3rd Generation Arterial Blood Potassium Urine Osmolality 275 L Ur Random Sodium 7 Influenza Typ A,B (EIA) Negative for flu a/b 07/14/16 13:55 WBC 59.0 H* RBC 4.43 Hgb 11.8 Hct 36.7 MCV 82.8 MCH 26.7 L MCHC 32.3 L RDW 14.9 H Plt Count 369 MPV 8.0 Neut % (Auto) 93.8 H Lymph % (Auto) 2.0 L [place] % (Auto) 3.8 Eos % (Auto) 0.0 Baso % (Auto) 0.4 Neut # 55.4 H Lymph # 1.2 [place] # 2.2 H Eos # 0.0 Baso # 0.2 Neutrophils % (Manual) 40 L Band Neutrophils % 49 H* Lymphocytes % (Manual) 1 L Reactive Lymphs % Monocytes % (Manual) 6 Metamyelocytes % 2 H Myelocytes % 2 H Toxic Granulation Present Dohle Bodies Present Anayeli Rods Platelet Estimate Normal Plt Clumps, EDTA Large Platelets Present Giant Platelets Poikilocytosis (manual Slight Ovalocytes Kimmy Cells Slight Smear Path Review Puncture Site pCO2 pO2 HCO3 ABG pH ABG Total CO2 ABG O2 Saturation ABG Base Excess Wesley Test ABG Potassium A-a O2 Difference Respiratory Index Sodium 122 L Chloride 92 L Glucose Lactate Mechanical Rate FiO2 Tidal Volume PEEP Potassium 4.0 Carbon Dioxide 18 L Anion Gap 16 BUN 21 H Creatinine 0.9 Est GFR ( Amer) > 60 Est GFR (Non-Af Amer) > 60 Random Glucose 147 H Serum Osmolality Lactic Acid Calcium 6.3 L Phosphorus Magnesium 2.1 Total Bilirubin 0.3 AST 34 ALT 28 Alkaline Phosphatase 64 Total Protein 5.2 L Albumin 2.2 L Globulin 3.0 Albumin/Globulin Ratio 0.7 L TSH 3rd Generation Arterial Blood Potassium Urine Osmolality Ur Random Sodium Influenza Typ A,B (EIA)
[2016-07-15] MEDS: Imipenem/Cilastatin 250 MG in Sodium Chloride 100 ML IVPB SCH ×3 (05:30→17:32)
[2016-07-15 05:56] LABS: ABG MECHANICAL RATE 14; ARTERIAL BLOOD HGB O2 SAT 96.2 % (95.0-98.0); ATERIAL BLOOD GAS PEEP 5; CARBOXYHEMOGLOBIN 1.3 % (0.5-1.5); DRAW SITE RB; HHB 0.6 % (0.0-5.0); METHEMOGLOBIN 1.9 % (0.0-3.0)
[2016-07-15] MEDS: metroNIDAZOLE IV 500 mg/100 ml 100 ML IVPB SCH ×3 (06:00→22:00)
[2016-07-15] MEDS: Sodium Chloride 0.9% 1,000 ML IV SCH ×3 (06:40→21:20)
[2016-07-15 06:42] LABS: CHLORIDE URINE <15 mmol/L (32-290)
[2016-07-15 06:46] LABS: EOS % 0.1 % (0.0-4.0); HEMATOCRIT 34.4 % (34.0-47.0); LYMPH # 0.9 K/uL (1.0-4.3); LYMPH % 1.8 % (20.0-40.0); MEAN CELL VOLUME 82.5 fL (81.0-99.0); MEAN CORPUSCULAR HEMOGLOBIN 27.9 pg (27.0-31.0); MEAN CORPUSCULAR HGB CONC 33.8 g/dL (33.0-37.0); MONO # 6.3 K/uL (0.0-0.8); MONO % 12.5 % (0.0-10.0); PLATELET COUNT 407 K/uL (130-400); RED CELL DISTRIBUTION WIDTH 14.9 % (11.5-14.5)
[2016-07-15 06:55] LABS: CHLORIDE 95 mmol/L (98-107); POTASSIUM 3.9 mmol/L (3.6-5.2); SODIUM 126 mmol/L (132-148)
[2016-07-15 06:57] LABS: GFR AFRICAN-AMERICAN > 60
[2016-07-15 06:58] LABS: ALB/GLOB RATIO 0.7 (1.0-2.1); ALKALINE PHOSPHATASE 82 U/L (38-126); ALT/SGPT 24 U/L (9-52); AST/SGOT 30 U/L (14-36); BILIRUBIN,TOTAL 0.3 mg/dL (0.2-1.3); BLOOD UREA NITROGEN 20 mg/dL (7-17); CARBON DIOXIDE 18 mmol/L (22-30); GLUCOSE,RANDOM 98 mg/dL (65-105); PHOSPHOROUS 3.1 mg/dL (2.5-4.5); TOTAL PROTEIN 5.1 g/dL (6.3-8.3); WHITE BLOOD COUNT 50.3 K/uL (4.8-10.8)
[2016-07-15 06:59] LABS: CALCIUM 6.4 mg/dl (8.6-10.4); MAGNESIUM 2.1 mg/dL (1.6-2.3)
--- NOTE | 2016-07-15 08:30 | CP.CCUPN ---
<Jaspreet Pedro - Last Filed: 07/15/16 17:58> CCU Subjective - Physician Review Subjective (Free Text): 07/15/16 17:58 Patient seen at bedside and is in no acute distress. Patient is intubated Vent settings ( FiO2 50% RR 14 PEEP 5 TV 500). Isolation precautions in place due to c. diff colitis findings. Patient cannot comply to an ROS at this time due to intubation and sedation. Family bedside and informed of management.. 07/15/16 18:02 CCU Objective - Vital Signs / Intake & Output Intake and Output (Last 8hrs): Intake & Output 07/14/16 07/15/16 07/15/16 22:59 06:59 14:59 Intake Total 1395 1086.3 125 Output Total 540 375 45 Balance 855 711.3 80 Weight 169 lb Intake: Intake, IV Amount 1315 1086.3 125 Right Distal Port 100 Internal Jugular Right Proximal Port 975 925 125 Right Medial Port 240 161.3 Internal Jugular Other 80 Output: Gastric Amount 60 Stomach 60 Urine 480 375 45 Urethral (Kowalski) 480 375 45 Stool 0 - Physical Exam Physical Exam Limitations: Positive for: Altered Mental Status Head: Positive for: Atraumatic, Normocephalic Pupils: Positive for: PERRL Extroacular Muscles: Positive for: EOMI Conjunctiva: Positive for: Normal Ears: Positive for: Normal Mouth: Positive for: Moist Mucous Membranes Respiratory/Chest: Positive for: Clear to Auscultation. Negative for: Wheezes Cardiovascular: Positive for: Normal S1, S2 Abdomen: Positive for: Distention, Normal Bowel Sounds. Negative for: Peritoneal Signs Upper Extremity: Positive for: NORMAL PULSES Lower Extremity: Negative for: Edema Skin: Positive for: Warm, Dry Psychiatric: Positive for: Other (sedated at this time). Negative for: Alert - Medications Active Medications: Active Medications Generic Name Dose Route Start Last Admin Trade Name Freq PRN Reason Stop Dose Admin Acetaminophen 650 mg 07/14/16 04:18 Tylenol 325mg Tab PO Q4 PRN Fever >100.4 F Famotidine 20 mg 07/14/16 10:00 07/14/16 21:57 Pepcid IVP 20 mg Q12 YAMILETH Administration Heparin Sodium (Porcine) 5,000 units 07/14/16 06:00 07/15/16 06:00 Heparin SC 5,000 units Q8 YAMILETH Administration Metronidazole 100 mls @ 100 mls/hr 07/14/16 06:45 07/15/16 06:00 Flagyl IVPB 100 mls/hr Q8 YAMILETH Administration Norepinephrine Bitartrate 4 mg 254 mls @ 15.24 mls/hr 07/14/16 09:08 07/15/16 03:20 / Sodium Chloride IV 22.86 mls/hr .[id number] PRN Administration TITRATE PER MD ORDER Protocol 4 MCG/MIN Imipenem/Cilastatin Sodium 250 100 mls @ 100 mls/hr 07/14/16 11:30 07/15/16 05: 30 mg/ Sodium Chloride IVPB 100 mls/hr Q6H YAMILETH Administration Sodium Chloride 1,000 mls @ 125 mls/hr 07/14/16 13:06 07/15/16 06:40 Sodium Chloride 0.9% IV 125 mls/hr .Q8H YAMILETH Administration Vancomycin HCl 500 mg 07/14/16 10:00 07/14/16 21:59 Vancocin (Oral Or Rectal Use) PO 500 mg QID YAMILETH Administration Vancomycin HCl 500 mg 07/15/16 10:00 Vancocin (Oral Or Rectal Use) LA TID YAMILETH - Patient Studies Lab Studies: Lab Studies 07/15/16 07/15/16 07/14/16 Range/Units 06:34 05:16 13:55 WBC 50.3 H* 59.0 H* (4.8-10.8) K/uL RBC 4.17 4.43 (3.80-5.20) Mil/uL Hgb 11.6 11.8 (11.0-16.0) g/dL Hct 34.4 36.7 (34.0-47.0) % MCV 82.5 82.8 (81.0-99.0) fL MCH 27.9 26.7 L (27.0-31.0) pg MCHC 33.8 32.3 L (33.0-37.0) g/dL RDW 14.9 H 14.9 H (11.5-14.5) % Plt Count 407 H 369 (130-400) K/uL MPV 8.0 8.0 (7.2-11.7) fL Neut % (Auto) 85.6 H 93.8 H (50.0-75.0) % Lymph % (Auto) 1.8 L 2.0 L (20.0-40.0) % [place] % (Auto) 12.5 H 3.8 (0.0-10.0) % Eos % (Auto) 0.1 0.0 (0.0-4.0) % Baso % (Auto) 0.0 0.4 (0.0-2.0) % Neut # 43.0 H 55.4 H (1.8-7.0) K/uL Lymph # 0.9 L 1.2 (1.0-4.3) K/uL [place] # 6.3 H 2.2 H (0.0-0.8) K/uL Eos # 0.0 0.0 (0.0-0.7) K/uL Baso # 0.0 0.2 (0.0-0.2) K/uL Neutrophils % (Manual) 40 L (50-75) % Band Neutrophils % 49 H* (0-2) % Lymphocytes % (Manual) 1 L (20-40) % Monocytes % (Manual) 6 (0-10) % Metamyelocytes % 2 H (0-0) % Myelocytes % 2 H (0-0) % Toxic Granulation Present Dohle Bodies Present Anayeli Rods Platelet Estimate Normal (NORMAL) Large Platelets Present Poikilocytosis (manual Slight Kimmy Cells Slight Smear Path Review Puncture Site Rb pCO2 25 L (35-45) mm/Hg pO2 142 H (80-100) mm/Hg HCO3 17.7 L (21-28) mmol/L ABG pH 7.37 (7.35-7.45) ABG Total CO2 15.3 L (22-28) mmol/L ABG O2 Saturation 99.4 H (95-98) % ABG Base Excess -9.2 L (-2.0-3.0) mmol/L ABG Hemoglobin 11.6 L (11.7-17.4) g/dL ABG Carboxyhemoglobin 1.3 (0.5-1.5) % POC ABG HHb (Measured) 0.6 (0.0-5.0) % ABG Methemoglobin 1.9 (0.0-3.0) % Wesley Test Na A-a O2 Difference 183.0 mm/Hg Respiratory Index 1.3 Hgb O2 Saturation 96.2 (95.0-98.0) % Mechanical Rate 14 FiO2 50.0 % Tidal Volume 500 PEEP 5 Sodium 126 L 122 L (132-148) mmol/L Potassium 3.9 4.0 (3.6-5.2) mmol/L Chloride 95 L 92 L (98-107) mmol/L Carbon Dioxide 18 L 18 L (22-30) mmol/L Anion Gap 17 16 (10-20) BUN 20 H 21 H (7-17) mg/dL Creatinine 0.8 0.9 (0.7-1.2) MG/DL Est GFR ( Amer) > 60 > 60 Est GFR (Non-Af Amer) > 60 > 60 Random Glucose 98 147 H (65-105) mg/dL Serum Osmolality (272-300) mosm/kg Calcium 6.4 L 6.3 L (8.6-10.4) mg/dl Phosphorus 3.1 (2.5-4.5) mg/dL Magnesium 2.1 2.1 (1.6-2.3) mg/dL Total Bilirubin 0.3 0.3 (0.2-1.3) mg/dL AST 30 34 (14-36) U/L ALT 24 28 (9-52) U/L Alkaline Phosphatase 82 64 (38-126) U/L Total Protein 5.1 L 5.2 L (6.3-8.3) g/dL Albumin 2.0 L 2.2 L (3.5-5.0) g/dL Globulin 3.0 3.0 (2.2-3.9) gm/dL Albumin/Globulin Ratio 0.7 L 0.7 L (1.0-2.1) Urine Osmolality (300-1000) mosm/kg Ur Random Sodium mmol/L Urine Chloride (32-290) mmol/L 07/14/16 07/14/16 07/14/16 Range/Units 10:43 07:57 06:08 WBC (4.8-10.8) K/uL RBC (3.80-5.20) Mil/uL Hgb (11.0-16.0) g/dL Hct (34.0-47.0) % MCV (81.0-99.0) fL MCH (27.0-31.0) pg MCHC (33.0-37.0) g/dL RDW (11.5-14.5) % Plt Count (130-400) K/uL MPV (7.2-11.7) fL Neut % (Auto) (50.0-75.0) % Lymph % (Auto) (20.0-40.0) % [place] % (Auto) (0.0-10.0) % Eos % (Auto) (0.0-4.0) % Baso % (Auto) (0.0-2.0) % Neut # (1.8-7.0) K/uL Lymph # (1.0-4.3) K/uL [place] # (0.0-0.8) K/uL Eos # (0.0-0.7) K/uL Baso # (0.0-0.2) K/uL Neutrophils % (Manual) (50-75) % Band Neutrophils % (0-2) % Lymphocytes % (Manual) (20-40) % Monocytes % (Manual) (0-10) % Metamyelocytes % (0-0) % Myelocytes % (0-0) % Toxic Granulation Dohle Bodies Anayeli Rods Platelet Estimate (NORMAL) Large Platelets Poikilocytosis (manual [place] Cells Smear Path Review Puncture Site pCO2 (35-45) mm/Hg pO2 (80-100) mm/Hg HCO3 (21-28) mmol/L ABG pH (7.35-7.45) ABG Total CO2 (22-28) mmol/L ABG O2 Saturation (95-98) % ABG Base Excess (-2.0-3.0) mmol/L ABG Hemoglobin (11.7-17.4) g/dL ABG Carboxyhemoglobin (0.5-1.5) % POC ABG HHb (Measured) (0.0-5.0) % ABG Methemoglobin (0.0-3.0) % Wesley Test A-a O2 Difference mm/Hg Respiratory Index Hgb O2 Saturation (95.0-98.0) % Mechanical Rate FiO2 % Tidal Volume PEEP Sodium (132-148) mmol/L Potassium (3.6-5.2) mmol/L Chloride (98-107) mmol/L Carbon Dioxide (22-30) mmol/L Anion Gap (10-20) BUN (7-17) mg/dL Creatinine (0.7-1.2) MG/DL Est GFR ( Amer) Est GFR (Non-Af Amer) Random Glucose (65-105) mg/dL Serum Osmolality 261 L (272-300) mosm/kg Calcium (8.6-10.4) mg/dl Phosphorus (2.5-4.5) mg/dL Magnesium (1.6-2.3) mg/dL Total Bilirubin (0.2-1.3) mg/dL AST (14-36) U/L ALT (9-52) U/L Alkaline Phosphatase (38-126) U/L Total Protein (6.3-8.3) g/dL Albumin (3.5-5.0) g/dL Globulin (2.2-3.9) gm/dL Albumin/Globulin Ratio (1.0-2.1) Urine Osmolality 275 L (300-1000) mosm/kg Ur Random Sodium 7 mmol/L Urine Chloride <15 L (32-290) mmol/L Laboratory Results - last 24 hr 07/14/16 07/14/16 07/14/16 06:08 07:57 10:43 WBC RBC Hgb Hct MCV MCH MCHC RDW Plt Count MPV Neut % (Auto) Lymph % (Auto) [place] % (Auto) Eos % (Auto) Baso % (Auto) Neut # Lymph # [place] # Eos # Baso # Neutrophils % (Manual) Band Neutrophils % Lymphocytes % (Manual) Monocytes % (Manual) Metamyelocytes % Myelocytes % Toxic Granulation Dohle Bodies Anayeli Rods Platelet Estimate Large Platelets Poikilocytosis (manual [place] Cells Smear Path Review Puncture Site pCO2 pO2 HCO3 ABG pH ABG Total CO2 ABG O2 Saturation ABG Base Excess ABG Hemoglobin ABG Carboxyhemoglobin POC ABG HHb (Measured) ABG Methemoglobin Wesley Test A-a O2 Difference Respiratory Index Hgb O2 Saturation Mechanical Rate FiO2 Tidal Volume PEEP Sodium Potassium Chloride Carbon Dioxide Anion Gap BUN Creatinine Est GFR ( Amer) Est GFR (Non-Af Amer) Random Glucose Serum Osmolality 261 L Calcium Phosphorus Magnesium Total Bilirubin AST ALT Alkaline Phosphatase Total Protein Albumin Globulin Albumin/Globulin Ratio Urine Osmolality 275 L Ur Random Sodium 7 Urine Chloride <15 L 07/14/16 07/15/16 07/15/16 13:55 05:16 06:34 WBC 59.0 H* 50.3 H* RBC 4.43 4.17 Hgb 11.8 11.6 Hct 36.7 34.4 MCV 82.8 82.5 MCH 26.7 L 27.9 MCHC 32.3 L 33.8 RDW 14.9 H 14.9 H Plt Count 369 407 H MPV 8.0 8.0 Neut % (Auto) 93.8 H 85.6 H Lymph % (Auto) 2.0 L 1.8 L [place] % (Auto) 3.8 12.5 H Eos % (Auto) 0.0 0.1 Baso % (Auto) 0.4 0.0 Neut # 55.4 H 43.0 H Lymph # 1.2 0.9 L [place] # 2.2 H 6.3 H Eos # 0.0 0.0 Baso # 0.2 0.0 Neutrophils % (Manual) 40 L Band Neutrophils % 49 H* Lymphocytes % (Manual) 1 L Monocytes % (Manual) 6 Metamyelocytes % 2 H Myelocytes % 2 H Toxic Granulation Present Dohle Bodies Present Anayeli Rods Platelet Estimate Normal Large Platelets Present Poikilocytosis (manual Slight [place] Cells Slight Smear Path Review Puncture Site Rb pCO2 25 L pO2 142 H HCO3 17.7 L ABG pH 7.37 ABG Total CO2 15.3 L ABG O2 Saturation 99.4 H ABG Base Excess -9.2 L ABG Hemoglobin 11.6 L ABG Carboxyhemoglobin 1.3 POC ABG HHb (Measured) 0.6 ABG Methemoglobin 1.9 Wesley Test Na A-a O2 Difference 183.0 Respiratory Index 1.3 Hgb O2 Saturation 96.2 Mechanical Rate 14 FiO2 50.0 Tidal Volume 500 PEEP 5 Sodium 122 L 126 L Potassium 4.0 3.9 Chloride 92 L 95 L Carbon Dioxide 18 L 18 L Anion Gap 16 17 BUN 21 H 20 H Creatinine 0.9 0.8 Est GFR ( Amer) > 60 > 60 Est GFR (Non-Af Amer) > 60 > 60 Random Glucose 147 H 98 Serum Osmolality Calcium 6.3 L 6.4 L Phosphorus 3.1 Magnesium 2.1 2.1 Total Bilirubin 0.3 0.3 AST 34 30 ALT 28 24 Alkaline Phosphatase 64 82 Total Protein 5.2 L 5.1 L Albumin 2.2 L 2.0 L Globulin 3.0 3.0 Albumin/Globulin Ratio 0.7 L 0.7 L Urine Osmolality Ur Random Sodium Urine Chloride Review of Systems - Review of Systems Review of Systems: as noted in subjective Assessment/Plan - Assessment and Plan (Free Text) Assessment: 81 year old female with a past medical history of HTN, arthritis, anxiety, seizures, back problems and gall bladder disease presents with clinical findings positive for c. diff colitis. Plan: Neuro: Neuro check q4 07/14 CT Head: no definite acute intracranial abnormality . Cardio: Maintain systolic BP >110 Levophed IV 4mg/NS Imagin/16 CXR: IJ in place; no active disease otherwise noted 07/14 CXR: No active disease 07/14 EKG: NSR @ 99 bpm 07/14 CXR 08:50: distal tip of vascular catheter overlying the projection of the expected location of the SVC 07/13 CXR 00:53: Developing hazy opacity overlying right upper lobe. Norepinephrine 254 cc @ 15.24 cc/hr IV [id number] PRN Pulm: Maintain O2 Sat >92% Vent Settings: FiO2 50% RR 14 PEEP 5 TV 500, Peak 24 ABG: -07/14 pH 7.35, CO2 29, O2 312, HCO3 18.6, base excess 8.2 Imagin/15 CXR: correct placement of ET tube. Endo: Maintain euglycemia GI: C. diff colitis Monitor BM 07/14 CT Abdomen/Pelvis: Colitis, indeterminate splenic lesion PPN started Dr. Schafer recommendations for Surgical eval for fecal transplant- will relay to primary team : I/Os [id number] = 3338.8cc Monitor I/Os Kowalski is in place Maintain Kowalski care Renal: BUN/Cr: 20/0.8 UOsm: 275 Monitor I/Os Daily BMP Hypomagnesemia - repleted Hypokalemia repleted NS 1000 cc @ 125cc/hr Q5H Urine Cx: no growth Heme: H&H- 11.6/34.4 Monitor CBC ID: C diff colitis (Positive studies) Low grade fever WBC: 50.3 (36.3 --> 50.1 --> 59.0 --> 50.3) Neutrophils: (31-->40-->41) Bands: (55-->49-->50) 07/15: C-diff toxin Positive Daily CBC Acetaminophen 650 mg PO Q4 PRN Fever >100.4 F Primaxin Q6 renally dosed Flagyl 100 cc @ 100 cc/hr IVPB Q8 YAMILETH Vancomycin 500 mg PO QID Prophylaxis: GI: Pepcid 20 mg IVP Q12 DVT: Heparin SC, SCDs <Latef,Eliot M - Last Filed: 07/15/16 18:31> CCU Objective - Vital Signs / Intake & Output Vital Signs (Last 4 hours): Vital Signs Pulse Resp BP Pulse Ox 07/15/16 17:34 98 H 23 104/39 L 99 Intake and Output (Last 8hrs): Intake & Output 07/15/16 07/15/16 07/15/16 06:59 14:59 22:59 Intake Total 1086.3 420.0 Output Total 375 115 Balance 711.3 305.0 Weight 169 lb Intake: Intake, IV Amount 1086.3 420.0 Right Proximal Port 925 375 Right Medial Port 161.3 45.0 Internal Jugular Output: Urine 375 115 Urethral (Kowalski) 375 115 Other: # Bowel Movements 1 - Medications Active Medications: Active Medications Generic Name Dose Route Start Last Admin Trade Name Freq PRN Reason Stop Dose Admin Acetaminophen 650 mg 07/14/16 04:18 07/15/16 09:14 Tylenol 325mg Tab PO 650 mg Q4 PRN Administration Fever >100.4 F Famotidine 20 mg 07/14/16 10:00 07/15/16 10:23 Pepcid IVP 20 mg Q12 YAMILETH Administration Heparin Sodium (Porcine) 5,000 units 07/14/16 06:00 07/15/16 14:36 Heparin SC 5,000 units Q8 YAMILETH Administration Metronidazole 100 mls @ 100 mls/hr 07/14/16 06:45 07/15/16 14:34 Flagyl IVPB 100 mls/hr Q8 YAMILETH Administration Norepinephrine Bitartrate 4 mg 254 mls @ 15.24 mls/hr 07/14/16 09:08 07/15/16 17:34 / Sodium Chloride IV 30.48 mls/hr .[id number] PRN Administration TITRATE PER MD ORDER Protocol 4 MCG/MIN Imipenem/Cilastatin Sodium 250 100 mls @ 100 mls/hr 07/14/16 11:30 07/15/16 17: 32 mg/ Sodium Chloride IVPB 100 mls/hr Q6H YAMILETH Administration Sodium Chloride 1,000 mls @ 125 mls/hr 07/14/16 13:06 07/15/16 14:33 Sodium Chloride 0.9% IV Not Given .Q8H YAMILETH Multivitamins/Vitamin C 10 ml/ 1,010 mls @ 42 mls/hr 07/15/16 18:00 07/15/16 17 :44 Amino Acids IV 07/16/16 17:59 42 mls/hr .Q24H ONE Administration Fat Emulsion Intravenous 250 mls @ 42 mls/hr 07/15/16 18:00 07/15/16 17:41 Intralipid 20% IV 07/20/16 23:58 42 mls/hr [email or web address] YAMILETH Administration Vancomycin HCl 500 mg 07/14/16 10:00 07/15/16 17:37 Vancocin (Oral Or Rectal Use) PO 500 mg QID YAMILETH Administration Vancomycin HCl 500 mg 07/15/16 10:00 07/15/16 17:39 Vancocin (Oral Or Rectal Use) LA 500 mg TID YAMILETH Administration - Patient Studies Lab Studies: Lab Studies 07/15/16 07/15/16 07/14/16 Range/Units 06:34 05:16 10:15 WBC 50.3 H* (4.8-10.8) K/uL RBC 4.17 (3.80-5.20) Mil/uL Hgb 11.6 (11.0-16.0) g/dL Hct 34.4 (34.0-47.0) % MCV 82.5 (81.0-99.0) fL MCH 27.9 (27.0-31.0) pg MCHC 33.8 (33.0-37.0) g/dL RDW 14.9 H (11.5-14.5) % Plt Count 407 H (130-400) K/uL MPV 8.0 (7.2-11.7) fL Neut % (Auto) 85.6 H (50.0-75.0) % Lymph % (Auto) 1.8 L (20.0-40.0) % [place] % (Auto) 12.5 H (0.0-10.0) % Eos % (Auto) 0.1 (0.0-4.0) % Baso % (Auto) 0.0 (0.0-2.0) % Neut # 43.0 H (1.8-7.0) K/uL Lymph # 0.9 L (1.0-4.3) K/uL [place] # 6.3 H (0.0-0.8) K/uL Eos # 0.0 (0.0-0.7) K/uL Baso # 0.0 (0.0-0.2) K/uL Neutrophils % (Manual) 41 L (50-75) % Band Neutrophils % 50 H* (0-2) % Lymphocytes % (Manual) 1 L (20-40) % Monocytes % (Manual) 6 (0-10) % Metamyelocytes % 1 H (0-0) % Myelocytes % 1 H (0-0) % Platelet Estimate Normal (NORMAL) Large Platelets Present Polychromasia Slight Poikilocytosis (manual Slight Kimmy Cells Slight Puncture Site Rb pCO2 25 L (35-45) mm/Hg pO2 142 H (80-100) mm/Hg HCO3 17.7 L (21-28) mmol/L ABG pH 7.37 (7.35-7.45) ABG Total CO2 15.3 L (22-28) mmol/L ABG O2 Saturation 99.4 H (95-98) % ABG Base Excess -9.2 L (-2.0-3.0) mmol/L ABG Hemoglobin 11.6 L (11.7-17.4) g/dL ABG Carboxyhemoglobin 1.3 (0.5-1.5) % POC ABG HHb (Measured) 0.6 (0.0-5.0) % ABG Methemoglobin 1.9 (0.0-3.0) % Wesley Test Na A-a O2 Difference 183.0 mm/Hg Respiratory Index 1.3 Hgb O2 Saturation 96.2 (95.0-98.0) % Mechanical Rate 14 FiO2 50.0 % Tidal Volume 500 PEEP 5 Sodium 126 L (132-148) mmol/L Potassium 3.9 (3.6-5.2) mmol/L Chloride 95 L (98-107) mmol/L Carbon Dioxide 18 L (22-30) mmol/L Anion Gap 17 (10-20) BUN 20 H (7-17) mg/dL Creatinine 0.8 (0.7-1.2) MG/DL Est GFR ( Amer) > 60 Est GFR (Non-Af Amer) > 60 Random Glucose 98 (65-105) mg/dL Calcium 6.4 L (8.6-10.4) mg/dl Phosphorus 3.1 (2.5-4.5) mg/dL Magnesium 2.1 (1.6-2.3) mg/dL Total Bilirubin 0.3 (0.2-1.3) mg/dL AST 30 (14-36) U/L ALT 24 (9-52) U/L Alkaline Phosphatase 82 (38-126) U/L Total Protein 5.1 L (6.3-8.3) g/dL Albumin 2.0 L (3.5-5.0) g/dL Globulin 3.0 (2.2-3.9) gm/dL Albumin/Globulin Ratio 0.7 L (1.0-2.1) Urine Chloride (32-290) mmol/L C. difficile Ag & Toxin Positive H (NEGATIVE) 07/14/16 Range/Units 07:57 WBC (4.8-10.8) K/uL RBC (3.80-5.20) Mil/uL Hgb (11.0-16.0) g/dL Hct (34.0-47.0) % MCV (81.0-99.0) fL MCH (27.0-31.0) pg MCHC (33.0-37.0) g/dL RDW (11.5-14.5) % Plt Count (130-400) K/uL MPV (7.2-11.7) fL Neut % (Auto) (50.0-75.0) % Lymph % (Auto) (20.0-40.0) % [place] % (Auto) (0.0-10.0) % Eos % (Auto) (0.0-4.0) % Baso % (Auto) (0.0-2.0) % Neut # (1.8-7.0) K/uL Lymph # (1.0-4.3) K/uL [place] # (0.0-0.8) K/uL Eos # (0.0-0.7) K/uL Baso # (0.0-0.2) K/uL Neutrophils % (Manual) (50-75) % Band Neutrophils % (0-2) % Lymphocytes % (Manual) (20-40) % Monocytes % (Manual) (0-10) % Metamyelocytes % (0-0) % Myelocytes % (0-0) % Platelet Estimate (NORMAL) Large Platelets Polychromasia Poikilocytosis (manual [place] Cells Puncture Site pCO2 (35-45) mm/Hg pO2 (80-100) mm/Hg HCO3 (21-28) mmol/L ABG pH (7.35-7.45) ABG Total CO2 (22-28) mmol/L ABG O2 Saturation (95-98) % ABG Base Excess (-2.0-3.0) mmol/L ABG Hemoglobin (11.7-17.4) g/dL ABG Carboxyhemoglobin (0.5-1.5) % POC ABG HHb (Measured) (0.0-5.0) % ABG Methemoglobin (0.0-3.0) % Wesley Test A-a O2 Difference mm/Hg Respiratory Index Hgb O2 Saturation (95.0-98.0) % Mechanical Rate FiO2 % Tidal Volume PEEP Sodium (132-148) mmol/L Potassium (3.6-5.2) mmol/L Chloride (98-107) mmol/L Carbon Dioxide (22-30) mmol/L Anion Gap (10-20) BUN (7-17) mg/dL Creatinine (0.7-1.2) MG/DL Est GFR ( Amer) Est GFR (Non-Af Amer) Random Glucose (65-105) mg/dL Calcium (8.6-10.4) mg/dl Phosphorus (2.5-4.5) mg/dL Magnesium (1.6-2.3) mg/dL Total Bilirubin (0.2-1.3) mg/dL AST (14-36) U/L ALT (9-52) U/L Alkaline Phosphatase (38-126) U/L Total Protein (6.3-8.3) g/dL Albumin (3.5-5.0) g/dL Globulin (2.2-3.9) gm/dL Albumin/Globulin Ratio (1.0-2.1) Urine Chloride <15 L (32-290) mmol/L C. difficile Ag & Toxin (NEGATIVE) Laboratory Results - last 24 hr 07/14/16 07/14/16 07/15/16 07:57 10:15 05:16 WBC RBC Hgb Hct MCV MCH MCHC RDW Plt Count MPV Neut % (Auto) Lymph % (Auto) [place] % (Auto) Eos % (Auto) Baso % (Auto) Neut # Lymph # [place] # Eos # Baso # Neutrophils % (Manual) Band Neutrophils % Lymphocytes % (Manual) Monocytes % (Manual) Metamyelocytes % Myelocytes % Platelet Estimate Large Platelets Polychromasia Poikilocytosis (manual [place] Cells Puncture Site Rb pCO2 25 L pO2 142 H HCO3 17.7 L ABG pH 7.37 ABG Total CO2 15.3 L ABG O2 Saturation 99.4 H ABG Base Excess -9.2 L ABG Hemoglobin 11.6 L ABG Carboxyhemoglobin 1.3 POC ABG HHb (Measured) 0.6 ABG Methemoglobin 1.9 Wesley Test Na A-a O2 Difference 183.0 Respiratory Index 1.3 Hgb O2 Saturation 96.2 Mechanical Rate 14 FiO2 50.0 Tidal Volume 500 PEEP 5 Sodium Potassium Chloride Carbon Dioxide Anion Gap BUN Creatinine Est GFR ( Amer) Est GFR (Non-Af Amer) Random Glucose Calcium Phosphorus Magnesium Total Bilirubin AST ALT Alkaline Phosphatase Total Protein Albumin Globulin Albumin/Globulin Ratio Urine Chloride <15 L C. difficile Ag & Toxin Positive H 07/15/16 06:34 WBC 50.3 H* RBC 4.17 Hgb 11.6 Hct 34.4 MCV 82.5 MCH 27.9 MCHC 33.8 RDW 14.9 H Plt Count 407 H MPV 8.0 Neut % (Auto) 85.6 H Lymph % (Auto) 1.8 L [place] % (Auto) 12.5 H Eos % (Auto) 0.1 Baso % (Auto) 0.0 Neut # 43.0 H Lymph # 0.9 L [place] # 6.3 H Eos # 0.0 Baso # 0.0 Neutrophils % (Manual) 41 L Band Neutrophils % 50 H* Lymphocytes % (Manual) 1 L Monocytes % (Manual) 6 Metamyelocytes % 1 H Myelocytes % 1 H Platelet Estimate Normal Large Platelets Present Polychromasia Slight Poikilocytosis (manual Slight [place] Cells Slight Puncture Site pCO2 pO2 HCO3 ABG pH ABG Total CO2 ABG O2 Saturation ABG Base Excess ABG Hemoglobin ABG Carboxyhemoglobin POC ABG HHb (Measured) ABG Methemoglobin Wesley Test A-a O2 Difference Respiratory Index Hgb O2 Saturation Mechanical Rate FiO2 Tidal Volume PEEP Sodium 126 L Potassium 3.9 Chloride 95 L Carbon Dioxide 18 L Anion Gap 17 BUN 20 H Creatinine 0.8 Est GFR ( Amer) > 60 Est GFR (Non-Af Amer) > 60 Random Glucose 98 Calcium 6.4 L Phosphorus 3.1 Magnesium 2.1 Total Bilirubin 0.3 AST 30 ALT 24 Alkaline Phosphatase 82 Total Protein 5.1 L Albumin 2.0 L Globulin 3.0 Albumin/Globulin Ratio 0.7 L Urine Chloride C. difficile Ag & Toxin Attending/Attestation - Attestation I have personally seen and examined this patient.: Yes I have fully participated in the care of the patient.: Yes I have reviewed all pertinent clinical information: Yes Notes (Text): 07/15/16 Today: June The Patient was seen and examined at the bedside, Medical records reviewed, all clinical/lab/hemodynamic/radiographic data were reviewed and management issues were discussed and formulated, Events reviewed Pain issues, skin care, head of the bed elevation, GI/DVT prophylaxis, glycemic control were addressed. Agree with above treatment plans as transcribed in Dr. Pedro note
--- NOTE | 2016-07-15 08:41 | RAD ---
HISTORY: vented COMPARISON: 07/14/2016 FINDINGS: LUNGS: No active pulmonary disease. PLEURA: No significant pleural effusion identified, no pneumothorax apparent. CARDIOVASCULAR: Normal. OSSEOUS STRUCTURES: No significant abnormalities. VISUALIZED UPPER ABDOMEN: Normal. OTHER FINDINGS: Endotracheal tube in satisfactory position. Right IJ line in satisfactory position IMPRESSION: No active disease.
--- NOTE | 2016-07-15 08:48 | CON ---
DATE: 07/14/2016 INFECTIOUS DISEASE CONSULTATION Chart reviewed. The patient's examination noted. Case discussed with ICU resident, Dr. Aggie bernal. Her phone number is [phone]. The patient is in ICU/CCU, bed 6. The patient is a 81-year-old fragile female transferred [facility] [facility] because of acute abdo patti pain, hypotension, and shock-like state requiring intubation. PREVIOUS PAST MEDICAL ISSUES: Including, but not limited to: 1. Accidental fall with abrasions, sprains of her left knee, treated with rest, analgesics, and no a ntibiotics. 2. Recent pseudo-obstruction. 3. Seizure disorder, longstanding. 4. Chronic constipation, longstanding. 5. GERD. 6. Status post left knee replacement approximately 1994. 7. Status post right knee replacement in 2003. 8. Status post right hip replacement in 2004. 9. Decreased hearing. 10. Status post hysterectomy, 1975. 11. Status post appendectomy when she was much younger. 12. Cataracts. 13. Stress test and under the cardiac care of Dr. Piero Cotto. ALLERGIES: SHE HAS EXTREMELY VAGUE PENICILLIN ALLERGY? SOCIAL HISTORY: No tobacco or ethanol use. FAMILY HISTORY: Not applicable. The patient was admitted in septic shock-like state with marked leukocytosis and hypotension. The infectious disease consultation was requested for possible C. diff/colitis, as per the CAT scan. Of note, on her previous hospitalization, she was seen by GI for diarrhea and colonic distention. St ools were all negative for C. diff, and the patient had not been on antibiotics for many months. On that hospitalization, her diarrhea and abdominal distention resolved with conservative therapy. As m entioned, CAT scan shows some colonic thickening, possibly consistent with colitis. There is a quest ion of dilated colon with bowel dystonia and underlying malignancy. LABORATORY DATA: Of note, on this admission, her white count appears to be approximately 50,100, hem oglobin 12.9, hematocrit 38.5 with 406 platelets. Of note, 55% bands, 31% segs. Sodium between 118 and 122. Chloride is between 87 and 96. Sugar of 107, BUN of 23, creatinine of 1. GFR is 48 with a lactate of 2. Reviewed her old records. She is intubated on fluids, pressors, H2 blockers, Tylenol for fever. PHYSICAL EXAMINATION: GENERAL: She appeared toxic, pale. HEENT: Anicteric. Dry mucous membranes. NECK: Not rigid, but decreased range of motion in all directions. LUNGS: Decreased breath sounds. CARDIAC: Tachycardic. ABDOMEN: Hypoactive bowel sounds appreciated. EXTREMITIES: Noted. VITAL SIGNS: BP earlier in the day 80/42. Pulse of 72, respirations 14, pulse ox of 100, temperatur e of 99.1. LABORATORY DATA: As reviewed. IMPRESSION: From the infectious disease point of view: 1. Findings of acute respiratory dysfunction managed by the critical care team. 2. Severe hyponatremia, new. 3. Marked leukocytosis, possible septic shock, etiology to be determined, along with possible coliti s, etiology to be determined. I agree with coverage for Clostridium difficile, either via nasogastri c tube or per rectum, IV Flagyl, and adjust the doses of imipenem. I would recommend giving a millig brian of imipenem at 100 mL of compatible fluid as a test dose to infuse over half an hour. If no imme diate adverse effects, continue with appropriate imipenem doses. Suggest a 500 IV piggyback q. 8 to q. 6 hourly. 4. Also treatment of her gastroesophageal reflux disease should be covered with proton pump inhibito rs. I will follow this patient as needed. We will discuss with the family accordingly - that is her brot her. Yeni Agustin MD cc: [phone] TT: 07/15/2016 08:47:56 Confirmation # [id number] Dictation # [id number] severo
[2016-07-15] MEDS: Vancomycin 125 MG/5 ML SOLN (ORAL/RECTAL) PO SCH ×4 (09:15→22:00)
--- NOTE | 2016-07-15 10:21 | CP.PCM.PN ---
Subjective - Date & Time of Evaluation Date of Evaluation: 07/15/16 Time of Evaluation: 10:17 - Subjective Subjective: F/U colitis. PResent: family and nurse and Aid. Today had a small loose BM. Sent for c difficile. No chills, rigors, Rb, melena, hematemesisi, hemoptysis, MADRID,. Has sl cough. Objective - Vital Signs/Intake and Output Vital Signs (last 24 hours): Temp Pulse Resp BP Pulse Ox 100 F H 106 H 26 H 133/48 L 99 07/15/16 08:36 07/15/16 08:02 07/15/16 08:02 07/15/16 08:02 07/15/16 08:02 Intake and Output: 07/15/16 07/15/16 06:59 18:59 Intake Total 1681.3 420.0 Output Total 615 115 Balance 1066.3 305.0 - Medications Medications: Current Medications Acetaminophen (Tylenol 325mg Tab) 650 mg PO Q4 PRN PRN Reason: Fever >100.4 F Last Admin: 07/15/16 09:14 Dose: 650 mg Famotidine (Pepcid) 20 mg IVP Q12 [facility] Last Admin: 07/14/16 21:57 Dose: 20 mg Heparin Sodium (Porcine) (Heparin) 5,000 units SC Q8 [facility] Last Admin: 07/15/16 06:00 Dose: 5,000 units Metronidazole (Flagyl) 100 mls @ 100 mls/hr IVPB Q8 [facility] Last Admin: 07/15/16 06:00 Dose: 100 mls/hr Norepinephrine Bitartrate 4 mg (/ Sodium Chloride) 254 mls @ 15.24 mls/hr IV .[id number] PRN; Protocol; 4 MCG/MIN PRN Reason: TITRATE PER MD ORDER Last Admin: 07/15/16 03:20 Dose: 22.86 mls/hr Imipenem/Cilastatin Sodium 250 (mg/ Sodium Chloride) 100 mls @ 100 mls/hr IVPB Q6H [facility] Last Admin: 07/15/16 05:30 Dose: 100 mls/hr Sodium Chloride (Sodium Chloride 0.9%) 1,000 mls @ 125 mls/hr IV .Q8H [facility] Last Admin: 07/15/16 06:40 Dose: 125 mls/hr Vancomycin HCl (Vancocin (Oral Or Rectal Use)) 500 mg PO QID [facility] Last Admin: 07/15/16 09:15 Dose: 500 mg Vancomycin HCl (Vancocin (Oral Or Rectal Use)) 500 mg [place] TID [facility] - Labs Labs: 07/15/16 06:34 07/15/16 06:34 PT 14.8 SECONDS (9.7-12.2) H 07/14/16 01:01 INR 1.3 07/14/16 01:01 APTT 37 SECONDS (21-34) H 07/14/16 01:01 - Respiratory Exam Respiratory Exam: Rhonchi - Cardiovascular Exam Cardiovascular Exam: RRR - GI/Abdominal Exam GI & Abdominal Exam: Distended, Normal Bowel Sounds. absent: Rigid Additional comments: Distended but not firm. - Neurological Exam Neurological Exam: Awake Assessment and Plan (1) Acute respiratory failure Assessment & Plan: Intubated Status: Acute (2) Hyponatremia Assessment & Plan: Improving Status: Acute (3) Sepsis Assessment & Plan: Unsure source. Consider colitis- but not severe on CT. Consider c difficile. Status: Acute (4) Abdominal pain Status: Acute (5) GERD (gastroesophageal reflux disease) Status: Chronic (6) Colitis Assessment & Plan: Colonoscopy done last month at last admission- No significant colitis. Mult stools were neg for c difficile. REC: leila Reid, check stool for c difficile.. Consider surgical F/U, fecal transplant. Status: Acute
[2016-07-15 10:44] LABS: METAMYELOCYTE 1 % (0-0); MYELOCYTE 1 % (0-0); NEUTROPHIL 41 % (50-75); TOTAL CELLS COUNTED 100
[2016-07-15 10:46] LABS: LARGE PLATELETS PRESENT
[2016-07-15] MEDS: Vancomycin 125 MG/5 ML SOLN (ORAL/RECTAL) PR SCH ×2 (15:36→17:39)
[2016-07-15] MEDS ORDERED: PPN#1 IV ONE (18:00)
[2016-07-15] MEDS ORDERED: Fat Emulsion 20% IV 250 ML IV SCH (18:00)
--- NOTE | 2016-07-15 20:40 | CP.PCM.PN ---
Subjective - Date & Time of Evaluation Date of Evaluation: 07/15/16 Time of Evaluation: 20:36 - Subjective Subjective: INFECTIOUS DISEASE PROGRESS NOTE EDEN VERA MD, FACP ICU/CCU #[id number] 07/15/2016 CHART REVIEWED PT EXAMINED CASE REDISCUSSED WITH HOSPITAL STAFF AWAKE AND ALERT BUT INTUBATED STILL. C. DIFF COMES BACK POSITIVE-THIS IS FIRST TIME IN HER RECENT ADMISSIONS. ALREADY ON PO AND RECTAL VANCOMYCIN 500MG -HIGH DOSE. TO D/C THE PRIMAXIN, NO RESAON TO BE ON RENAL DOSES,- MY ORDER WAS FOR PRIMAXIN 500MG IVPB Q 6-8 HOURS. FOLLOW CAREFULLY, DISCUSSED WITH HER BROTHER. Objective - Vital Signs/Intake and Output Vital Signs (last 24 hours): Temp Pulse Resp BP Pulse Ox 99.6 F 98 H 23 104/39 L 99 07/15/16 16:00 07/15/16 17:34 07/15/16 17:34 07/15/16 17:34 07/15/16 17:34 Intake and Output: 07/15/16 07/16/16 18:59 06:59 Intake Total 1811.5 Output Total 372 Balance 1439.5 - Medications Medications: Current Medications Acetaminophen (Tylenol 325mg Tab) 650 mg PO Q4 PRN PRN Reason: Fever >100.4 F Last Admin: 07/15/16 09:14 Dose: 650 mg Famotidine (Pepcid) 20 mg IVP Q12 [facility] Last Admin: 07/15/16 10:23 Dose: 20 mg Heparin Sodium (Porcine) (Heparin) 5,000 units SC Q8 [facility] Last Admin: 07/15/16 14:36 Dose: 5,000 units Metronidazole (Flagyl) 100 mls @ 100 mls/hr IVPB Q8 [facility] Last Admin: 07/15/16 14:34 Dose: 100 mls/hr Norepinephrine Bitartrate 4 mg (/ Sodium Chloride) 254 mls @ 15.24 mls/hr IV .[id number] PRN; Protocol; 4 MCG/MIN PRN Reason: TITRATE PER MD ORDER Last Admin: 07/15/16 17:34 Dose: 30.48 mls/hr Imipenem/Cilastatin Sodium 250 (mg/ Sodium Chloride) 100 mls @ 100 mls/hr IVPB Q6H [facility] Last Admin: 07/15/16 17:32 Dose: 100 mls/hr Sodium Chloride (Sodium Chloride 0.9%) 1,000 mls @ 125 mls/hr IV .Q8H [facility] Last Admin: 07/15/16 14:33 Dose: Not Given Multivitamins/Vitamin C 10 ml/ (Amino Acids) 1,010 mls @ 42 mls/hr IV .Q24H [facility] Stop: 07/16/16 17:59 Last Admin: 07/15/16 17:44 Dose: 42 mls/hr Fat Emulsion Intravenous (Intralipid 20%) 250 mls @ 42 mls/hr IV TuThSa@1800 [facility] Stop: 07/20/16 23:58 Last Admin: 07/15/16 17:41 Dose: 42 mls/hr Vancomycin HCl (Vancocin (Oral Or Rectal Use)) 500 mg PO QID [facility] Last Admin: 07/15/16 17:37 Dose: 500 mg Vancomycin HCl (Vancocin (Oral Or Rectal Use)) 500 mg [place] TID [facility] Last Admin: 07/15/16 17:39 Dose: 500 mg - Labs Labs: 07/15/16 06:34 07/15/16 06:34 PT 14.8 SECONDS (9.7-12.2) H 07/14/16 01:01 INR 1.3 07/14/16 01:01 APTT 37 SECONDS (21-34) H 07/14/16 01:01 - Constitutional Appears: In Acute Distress, Older Than Stated Age, Chronically Ill - Head Exam Head Exam: ATRAUMATIC, NORMOCEPHALIC - Eye Exam Eye Exam: Normal appearance - ENT Exam ENT Exam: Mucous Membranes Dry - Neck Exam Neck Exam: absent: Meningismus, Tenderness - Respiratory Exam Respiratory Exam: Decreased Breath Sounds, NORMAL BREATHING PATTERN - Cardiovascular Exam Cardiovascular Exam: REGULAR RHYTHM - GI/Abdominal Exam GI & Abdominal Exam: Distended, Rigid, Tenderness, Diminished Bowel Sounds, Hypoactive Bowel Sounds. absent: Mass, Organomegaly - Rectal Exam Rectal Exam: Deferred - Extremities Exam Extremities Exam: absent: Joint Swelling, Pedal Edema, Tenderness - Back Exam Back Exam: absent: muscle spasm, rash noted - Neurological Exam Neurological Exam: Alert, Awake. absent: Oriented x3 - Psychiatric Exam Psychiatric exam: Anxious, Depressed - Skin Skin Exam: Dry, Intact, Pallor, Warm. absent: Petechiae, Rash, Urticaria, Vesicles Assessment and Plan (1) C. difficile colitis Assessment & Plan: ON PO AND [place] VANCOMYCIN AND IV FLAGYL D/C PRIMAXIN Status: Acute (2) Acute respiratory failure Status: Acute (3) Hyponatremia Status: Acute (4) GERD (gastroesophageal reflux disease) Status: Chronic (5) Knee injury Status: Chronic (6) Sepsis Status: Acute (7) Bladder incontinence Status: Chronic (8) Abdominal pain Assessment & Plan: ASSOCIATED WITH C. DIFF COLITIS Status: Acute (9) Seizure disorder Status: Chronic
[2016-07-15] MEDS ORDERED: DiphenhydrAMINE 50 mg/ml Inj IVP ONE (22:30)
[2016-07-16] MEDS: Sodium Chloride 0.9% 1,000 ML IV SCH ×3 (03:00→22:29)
[2016-07-16 05:47] LABS: ABG ALLEN TEST POS; ABG MECHANICAL RATE 14; ARTERIAL BLOOD HGB O2 SAT 96.3 % (95.0-98.0); ATERIAL BLOOD GAS PEEP 5; CARBOXYHEMOGLOBIN 1.3 % (0.5-1.5); DRAW SITE LRAD; HHB 0.7 % (0.0-5.0); METHEMOGLOBIN 1.6 % (0.0-3.0)
[2016-07-16] MEDS: metroNIDAZOLE IV 500 mg/100 ml 100 ML IVPB SCH ×3 (06:00→22:25)
[2016-07-16 06:07] LABS: BASO # 0.1 K/uL (0.0-0.2); BASO % 0.3 % (0.0-2.0); HEMATOCRIT 36.2 % (34.0-47.0); LYMPH # 1.5 K/uL (1.0-4.3); LYMPH % 3.4 % (20.0-40.0); MEAN CELL VOLUME 83.7 fL (81.0-99.0); MEAN CORPUSCULAR HEMOGLOBIN 26.7 pg (27.0-31.0); MEAN CORPUSCULAR HGB CONC 31.9 g/dL (33.0-37.0); MONO # 4.7 K/uL (0.0-0.8); MONO % 10.8 % (0.0-10.0); PLATELET COUNT 414 K/uL (130-400); RED CELL DISTRIBUTION WIDTH 14.9 % (11.5-14.5)
[2016-07-16 06:11] LABS: WHITE BLOOD COUNT 43.6 K/uL (4.8-10.8)
[2016-07-16 06:15] LABS: CHLORIDE 99 mmol/L (98-107); SODIUM 127 mmol/L (132-148)
[2016-07-16 06:16] LABS: POTASSIUM 3.5 mmol/L (3.6-5.2)
[2016-07-16 06:17] LABS: GFR AFRICAN-AMERICAN > 60
[2016-07-16 06:18] LABS: ALB/GLOB RATIO 0.7 (1.0-2.1); ALKALINE PHOSPHATASE 98 U/L (38-126); ALT/SGPT 21 U/L (9-52); AST/SGOT 26 U/L (14-36); BILIRUBIN,TOTAL 0.6 mg/dL (0.2-1.3); BLOOD UREA NITROGEN 22 mg/dL (7-17); CALCIUM 6.3 mg/dl (8.6-10.4); CARBON DIOXIDE 16 mmol/L (22-30); GLUCOSE,RANDOM 106 mg/dL (65-105); PHOSPHOROUS 2.8 mg/dL (2.5-4.5); TOTAL PROTEIN 4.8 g/dL (6.3-8.3)
[2016-07-16 06:19] LABS: MAGNESIUM 2.1 mg/dL (1.6-2.3)
[2016-07-16 08:28] LABS: NEUTROPHIL 48 % (50-75); TOTAL CELLS COUNTED 100
[2016-07-16 08:30] LABS: LARGE PLATELETS PRESENT; PLATELET CLUMPS PRESENT
--- NOTE | 2016-07-16 08:38 | CP.CCUPN ---
<Jaspreet Pedro - Last Filed: 07/16/16 22:46> CCU Subjective - Physician Review Subjective (Free Text): 07/15/16 17:58 Patient seen at bedside and is in no acute distress. Patient is intubated Vent settings ( FiO2 50% RR 14 PEEP 5 TV 500). Isolation precautions in place due to c. diff colitis findings. Patient cannot comply to an ROS at this time due to intubation and sedation. Family bedside and informed of management.. 07/16/16 12:11 Patient seen at beside and is in no acute distress. Patient was placed on a trial of CPAP with PS 10 and PEEP of 5. Patient tolerated CPAP well. Patient was extubated at 12pm with a follow up ABG at 1 pm. Patient remains on 8 mcg/ min of levophed. No ROS obtained at this time secondary to somnolence. CCU Objective - Vital Signs / Intake & Output Vital Signs (Last 4 hours): Vital Signs Pulse Resp BP Pulse Ox 07/16/16 07:00 102 H 25 H 90/47 L 100 07/16/16 06:02 105 H 24 90/47 L 98 07/16/16 06:00 105 H 22 99/49 L 97 07/16/16 05:02 106 H 22 99/49 L 98 07/16/16 05:00 97 H 23 116/50 L 98 Intake and Output (Last 8hrs): Intake & Output 07/15/16 07/16/16 07/16/16 22:59 06:59 14:59 Intake Total 1467 1551 197 Output Total 235 230 20 Balance 1232 1321 177 Weight 172 lb Intake: Intake, IV Amount 1467 1551 197 Right Distal Port 252 336 42 Internal Jugular Right Proximal Port 975 975 125 Right Medial Port 240 240 30 Internal Jugular Oral 0 Output: Urine 235 230 20 Urethral (Kowalski) 235 230 20 - Physical Exam Head: Positive for: Atraumatic, Normocephalic Pupils: Positive for: PERRL Extroacular Muscles: Positive for: EOMI Conjunctiva: Positive for: Normal Ears: Positive for: Normal Mouth: Positive for: Moist Mucous Membranes Respiratory/Chest: Positive for: Clear to Auscultation. Negative for: Wheezes Cardiovascular: Positive for: Normal S1, S2 Abdomen: Positive for: Distention, Normal Bowel Sounds. Negative for: Peritoneal Signs Upper Extremity: Positive for: NORMAL PULSES Lower Extremity: Negative for: Edema Skin: Positive for: Warm, Dry Psychiatric: Positive for: Other (sedated at this time). Negative for: Alert - Medications Active Medications: Active Medications Generic Name Dose Route Start Last Admin Trade Name Freq PRN Reason Stop Dose Admin Acetaminophen 650 mg 07/14/16 04:18 07/15/16 09:14 Tylenol 325mg Tab PO 650 mg Q4 PRN Administration Fever >100.4 F Famotidine 20 mg 07/14/16 10:00 07/15/16 22:00 Pepcid IVP 20 mg Q12 YAMILETH Administration Heparin Sodium (Porcine) 5,000 units 07/14/16 06:00 07/16/16 06:00 Heparin SC 5,000 units Q8 YAMILETH Administration Metronidazole 100 mls @ 100 mls/hr 07/14/16 06:45 07/16/16 06:00 Flagyl IVPB 100 mls/hr Q8 YAMILETH Administration Norepinephrine Bitartrate 4 mg 254 mls @ 15.24 mls/hr 07/14/16 09:08 07/16/16 02:00 / Sodium Chloride IV 30.48 mls/hr .[id number] PRN Administration TITRATE PER MD ORDER Protocol 4 MCG/MIN Sodium Chloride 1,000 mls @ 125 mls/hr 07/14/16 13:06 07/16/16 03:00 Sodium Chloride 0.9% IV 125 mls/hr .Q8H YAMILETH Administration Multivitamins/Vitamin C 10 ml/ 1,010 mls @ 42 mls/hr 07/15/16 18:00 07/15/16 17 :44 Amino Acids IV 07/16/16 17:59 42 mls/hr .Q24H ONE Administration Fat Emulsion Intravenous 250 mls @ 42 mls/hr 07/15/16 18:00 07/15/16 17:41 Intralipid 20% IV 07/20/16 23:58 42 mls/hr [id number]@1800 YAMILETH Administration Potassium Chloride 100 mls @ 50 mls/hr 07/16/16 08:45 Potassium Chloride 20 Meq/100 Ml IVPB 07/16/16 12:44 Q2H YAMILETH Vancomycin HCl 500 mg 07/14/16 10:00 07/15/16 22:00 Vancocin (Oral Or Rectal Use) PO 500 mg QID YAMILETH Administration Vancomycin HCl 500 mg 07/15/16 10:00 07/15/16 17:39 Vancocin (Oral Or Rectal Use) DE 500 mg TID YAMILETH Administration - Patient Studies Lab Studies: Lab Studies 07/16/16 07/16/16 07/15/16 Range/Units 05:59 05:09 06:34 WBC 43.6 H* (4.8-10.8) K/uL RBC 4.32 (3.80-5.20) Mil/uL Hgb 11.5 (11.0-16.0) g/dL Hct 36.2 (34.0-47.0) % MCV 83.7 (81.0-99.0) fL MCH 26.7 L (27.0-31.0) pg MCHC 31.9 L (33.0-37.0) g/dL RDW 14.9 H (11.5-14.5) % Plt Count 414 H (130-400) K/uL MPV 8.0 (7.2-11.7) fL Neut % (Auto) 85.5 H (50.0-75.0) % Lymph % (Auto) 3.4 L (20.0-40.0) % [place] % (Auto) 10.8 H (0.0-10.0) % Eos % (Auto) 0.0 (0.0-4.0) % Baso % (Auto) 0.3 (0.0-2.0) % Neut # 37.3 H (1.8-7.0) K/uL Lymph # 1.5 (1.0-4.3) K/uL [place] # 4.7 H (0.0-0.8) K/uL Eos # 0.0 (0.0-0.7) K/uL Baso # 0.1 (0.0-0.2) K/uL Neutrophils % (Manual) 48 L 41 L (50-75) % Band Neutrophils % 37 H* 50 H* (0-2) % Lymphocytes % (Manual) 1 L 1 L (20-40) % Monocytes % (Manual) 14 H 6 (0-10) % Metamyelocytes % 1 H (0-0) % Myelocytes % 1 H (0-0) % Platelet Estimate Normal Normal (NORMAL) Plt Clumps, EDTA Present Large Platelets Present Present Polychromasia Slight Hypochromasia (manual) Slight Poikilocytosis (manual Slight Slight Anisocytosis (manual) Slight [place] Cells Slight Slight Puncture Site Lrad pCO2 22 L (35-45) mm/Hg pO2 160 H (80-100) mm/Hg HCO3 15.8 L (21-28) mmol/L ABG pH 7.35 (7.35-7.45) ABG Total CO2 12.8 L (22-28) mmol/L ABG O2 Saturation 99.3 H (95-98) % ABG Base Excess -11.7 L (-2.0-3.0) mmol/L ABG Hemoglobin 11.5 L (11.7-17.4) g/dL ABG Carboxyhemoglobin 1.3 (0.5-1.5) % POC ABG HHb (Measured) 0.7 (0.0-5.0) % ABG Methemoglobin 1.6 (0.0-3.0) % Wesley Test Pos A-a O2 Difference 169.0 mm/Hg Respiratory Index 1.1 Hgb O2 Saturation 96.3 (95.0-98.0) % Mechanical Rate 14 FiO2 50.0 % Tidal Volume 500 PEEP 5 Sodium 127 L (132-148) mmol/L Potassium 3.5 L (3.6-5.2) mmol/L Chloride 99 (98-107) mmol/L Carbon Dioxide 16 L (22-30) mmol/L Anion Gap 16 (10-20) BUN 22 H (7-17) mg/dL Creatinine 0.8 (0.7-1.2) MG/DL Est GFR ( Amer) > 60 Est GFR (Non-Af Amer) > 60 Random Glucose 106 H (65-105) mg/dL Calcium 6.3 L (8.6-10.4) mg/dl Phosphorus 2.8 (2.5-4.5) mg/dL Magnesium 2.1 (1.6-2.3) mg/dL Total Bilirubin 0.6 (0.2-1.3) mg/dL AST 26 (14-36) U/L ALT 21 (9-52) U/L Alkaline Phosphatase 98 (38-126) U/L Total Protein 4.8 L (6.3-8.3) g/dL Albumin 2.0 L (3.5-5.0) g/dL Globulin 2.8 (2.2-3.9) gm/dL Albumin/Globulin Ratio 0.7 L (1.0-2.1) C. difficile Ag & Toxin (NEGATIVE) 07/14/16 Range/Units 10:15 WBC (4.8-10.8) K/uL RBC (3.80-5.20) Mil/uL Hgb (11.0-16.0) g/dL Hct (34.0-47.0) % MCV (81.0-99.0) fL MCH (27.0-31.0) pg MCHC (33.0-37.0) g/dL RDW (11.5-14.5) % Plt Count (130-400) K/uL MPV (7.2-11.7) fL Neut % (Auto) (50.0-75.0) % Lymph % (Auto) (20.0-40.0) % [place] % (Auto) (0.0-10.0) % Eos % (Auto) (0.0-4.0) % Baso % (Auto) (0.0-2.0) % Neut # (1.8-7.0) K/uL Lymph # (1.0-4.3) K/uL [place] # (0.0-0.8) K/uL Eos # (0.0-0.7) K/uL Baso # (0.0-0.2) K/uL Neutrophils % (Manual) (50-75) % Band Neutrophils % (0-2) % Lymphocytes % (Manual) (20-40) % Monocytes % (Manual) (0-10) % Metamyelocytes % (0-0) % Myelocytes % (0-0) % Platelet Estimate (NORMAL) Plt Clumps, EDTA Large Platelets Polychromasia Hypochromasia (manual) Poikilocytosis (manual Anisocytosis (manual) [place] Cells Puncture Site pCO2 (35-45) mm/Hg pO2 (80-100) mm/Hg HCO3 (21-28) mmol/L ABG pH (7.35-7.45) ABG Total CO2 (22-28) mmol/L ABG O2 Saturation (95-98) % ABG Base Excess (-2.0-3.0) mmol/L ABG Hemoglobin (11.7-17.4) g/dL ABG Carboxyhemoglobin (0.5-1.5) % POC ABG HHb (Measured) (0.0-5.0) % ABG Methemoglobin (0.0-3.0) % Wesley Test A-a O2 Difference mm/Hg Respiratory Index Hgb O2 Saturation (95.0-98.0) % Mechanical Rate FiO2 % Tidal Volume PEEP Sodium (132-148) mmol/L Potassium (3.6-5.2) mmol/L Chloride (98-107) mmol/L Carbon Dioxide (22-30) mmol/L Anion Gap (10-20) BUN (7-17) mg/dL Creatinine (0.7-1.2) MG/DL Est GFR ( Amer) Est GFR (Non-Af Amer) Random Glucose (65-105) mg/dL Calcium (8.6-10.4) mg/dl Phosphorus (2.5-4.5) mg/dL Magnesium (1.6-2.3) mg/dL Total Bilirubin (0.2-1.3) mg/dL AST (14-36) U/L ALT (9-52) U/L Alkaline Phosphatase (38-126) U/L Total Protein (6.3-8.3) g/dL Albumin (3.5-5.0) g/dL Globulin (2.2-3.9) gm/dL Albumin/Globulin Ratio (1.0-2.1) C. difficile Ag & Toxin Positive H (NEGATIVE) Laboratory Results - last 24 hr 07/14/16 07/15/16 07/16/16 10:15 06:34 05:09 WBC RBC Hgb Hct MCV MCH MCHC RDW Plt Count MPV Neut % (Auto) Lymph % (Auto) [place] % (Auto) Eos % (Auto) Baso % (Auto) Neut # Lymph # [place] # Eos # Baso # Neutrophils % (Manual) 41 L Band Neutrophils % 50 H* Lymphocytes % (Manual) 1 L Monocytes % (Manual) 6 Metamyelocytes % 1 H Myelocytes % 1 H Platelet Estimate Normal Plt Clumps, EDTA Large Platelets Present Polychromasia Slight Hypochromasia (manual) Poikilocytosis (manual Slight Anisocytosis (manual) [place] Cells Slight Puncture Site Lrad pCO2 22 L pO2 160 H HCO3 15.8 L ABG pH 7.35 ABG Total CO2 12.8 L ABG O2 Saturation 99.3 H ABG Base Excess -11.7 L ABG Hemoglobin 11.5 L ABG Carboxyhemoglobin 1.3 POC ABG HHb (Measured) 0.7 ABG Methemoglobin 1.6 Wesley Test Pos A-a O2 Difference 169.0 Respiratory Index 1.1 Hgb O2 Saturation 96.3 Mechanical Rate 14 FiO2 50.0 Tidal Volume 500 PEEP 5 Sodium Potassium Chloride Carbon Dioxide Anion Gap BUN Creatinine Est GFR ( Amer) Est GFR (Non-Af Amer) Random Glucose Calcium Phosphorus Magnesium Total Bilirubin AST ALT Alkaline Phosphatase Total Protein Albumin Globulin Albumin/Globulin Ratio C. difficile Ag & Toxin Positive H 07/16/16 05:59 WBC 43.6 H* RBC 4.32 Hgb 11.5 Hct 36.2 MCV 83.7 MCH 26.7 L MCHC 31.9 L RDW 14.9 H Plt Count 414 H MPV 8.0 Neut % (Auto) 85.5 H Lymph % (Auto) 3.4 L [place] % (Auto) 10.8 H Eos % (Auto) 0.0 Baso % (Auto) 0.3 Neut # 37.3 H Lymph # 1.5 [place] # 4.7 H Eos # 0.0 Baso # 0.1 Neutrophils % (Manual) 48 L Band Neutrophils % 37 H* Lymphocytes % (Manual) 1 L Monocytes % (Manual) 14 H Metamyelocytes % Myelocytes % Platelet Estimate Normal Plt Clumps, EDTA Present Large Platelets Present Polychromasia Hypochromasia (manual) Slight Poikilocytosis (manual Slight Anisocytosis (manual) Slight [place] Cells Slight Puncture Site pCO2 pO2 HCO3 ABG pH ABG Total CO2 ABG O2 Saturation ABG Base Excess ABG Hemoglobin ABG Carboxyhemoglobin POC ABG HHb (Measured) ABG Methemoglobin Wesley Test A-a O2 Difference Respiratory Index Hgb O2 Saturation Mechanical Rate FiO2 Tidal Volume PEEP Sodium 127 L Potassium 3.5 L Chloride 99 Carbon Dioxide 16 L Anion Gap 16 BUN 22 H Creatinine 0.8 Est GFR ( Amer) > 60 Est GFR (Non-Af Amer) > 60 Random Glucose 106 H Calcium 6.3 L Phosphorus 2.8 Magnesium 2.1 Total Bilirubin 0.6 AST 26 ALT 21 Alkaline Phosphatase 98 Total Protein 4.8 L Albumin 2.0 L Globulin 2.8 Albumin/Globulin Ratio 0.7 L C. difficile Ag & Toxin Review of Systems - Review of Systems Review of Systems: as noted in subjective Assessment/Plan - Assessment and Plan (Free Text) Assessment: 81 year old female with a past medical history of HTN, arthritis, anxiety, seizures, back problems and gall bladder disease presents with C-diff colitis. Patient on antibiotics and monitored in critical care setting. Plan: Neuro: Neuro check q4 07/14 CT Head: no definite acute intracranial abnormality . Cardio: Maintain systolic BP >110 Levophed IV 4mg /NS @ 8mcg/min Imagin/17 CXR: feeding tube above level of diaphragm 07/15: CXR: No active disease 07/14 CXR: No active disease 07/14 EKG: NSR @ 99 bpm 07/14 CXR 08:50: distal tip of vascular catheter overlying the projection of the expected location of the SVC 07/13 CXR 00:53: Developing hazy opacity overlying right upper lobe. Pulm: Maintain O2 Sat >92% 07/16 Vent settings: extubated at 12:00pm, f/u 13:00 ABG 07/15 Vent Settings: FiO2 50% RR 14 PEEP 5 TV 500, Peak 24 AB/17 05:09 pH 7.35, CO2 22, O2 160, HCO3 15.8, base excess 11.7 07/15 05:16 pH 7.37, CO2 22, O2 142, HCO3 15.8, base excess 9.2 07/14 05:25 pH 7.35, CO2 29, O2 312, HCO3 18.6, base excess 8.2 Imagin/17 CXR: feeding tube above the level of the diaphragm 07/14 CXR: correct placement of ET tube. Endo: Maintain euglycemia GI: C. diff colitis Monitor BM 07/14 CT Abdomen/Pelvis: Colitis, indeterminate splenic lesion : I/Os 4125.5/737/3388.5 Monitor I/Os Kowalski is in place Maintain Kowalski care Renal: BUN/Cr: 22/0.8 Monitor I/Os Daily BMP NS 1000 cc @ 125cc/hr Q5H Heme: H&H- 11.5/36.2 Monitor CBC ID: C diff colitis Low grade fever WBC: 43.6 (36.3 --> 50.1 --> 59.0 --> 50.3-->43.6) Neutrophils: 37.3 (31-->40-->41 -->37.3) Bands: 37 (55-->49-->50-->37) 07/15: C-diff toxin Positive Daily CBC Acetaminophen 650 mg PO Q4 PRN Fever >100.4 F Flagyl 100 cc @ 100 cc/hr IVPB Q8 YAMILETH Vancomycin 500 mg PO QID Rifaximin 550 mg PO BID YAMILETH Prophylaxis: GI: Pepcid 20 mg IVP Q12 DVT: Heparin 5,000 units SC Q8 <Eliot Wilson M - Last Filed: 07/22/16 23:55> CCU Objective - Vital Signs / Intake & Output Vital Signs (Last 4 hours): Vital Signs BP 07/22/16 21:56 89/59 L Intake and Output (Last 8hrs): Intake & Output 07/22/16 07/22/16 07/23/16 14:59 22:59 06:59 Intake Total 640 420 Output Total 1365 380 Balance -725 40 Intake: Intake, IV Amount 100 Right Medial Port 100 Internal Jugular Oral 540 420 Output: Urine 1365 380 Urethral (Kowalski) 1365 380 Other: # Bowel Movements 1 - Medications Active Medications: Active Medications Generic Name Dose Route Start Last Admin Trade Name Freq PRN Reason Stop Dose Admin Acetaminophen 650 mg 07/14/16 04:18 07/15/16 09:14 Tylenol 325mg Tab PO 650 mg Q4 PRN Administration Fever >100.4 F Famotidine 20 mg 07/14/16 10:00 07/22/16 21:56 Pepcid IVP 20 mg Q12 YAMILETH Administration Furosemide 40 mg 07/22/16 07:45 07/22/16 21:56 Lasix IVP Not Given Q12 YAMILETH Heparin Sodium (Porcine) 5,000 units 07/18/16 22:00 07/22/16 21:55 Heparin SC 5,000 units Q12 YAMILETH Administration Metronidazole 100 mls @ 100 mls/hr 07/14/16 06:45 07/22/16 21:00 Flagyl IVPB 100 mls/hr Q8 YAMILETH Administration Rifaximin 550 mg 07/16/16 10:45 07/22/16 17:29 Xifaxan PO 550 mg BID YAMILETH Administration Saccharomyces Boulardii 250 mg 07/21/16 10:00 07/22/16 17:30 Florastor PO 250 mg TID YAMILETH Administration Vancomycin HCl 500 mg 07/14/16 10:00 07/22/16 21:55 Vancocin (Oral Or Rectal Use) PO 500 mg QID YAMILETH Administration - Patient Studies Lab Studies: Lab Studies 07/22/16 Range/Units 06:25 WBC 32.7 H (4.8-10.8) K/uL RBC 4.29 (3.80-5.20) Mil/uL Hgb 11.7 (11.0-16.0) g/dL Hct 36.6 (34.0-47.0) % MCV 85.2 (81.0-99.0) fL MCH 27.3 (27.0-31.0) pg MCHC 32.0 L (33.0-37.0) g/dL RDW 15.8 H (11.5-14.5) % Plt Count 523 H D (130-400) K/uL MPV 7.9 (7.2-11.7) fL Neut % (Auto) 78.2 H (50.0-75.0) % Lymph % (Auto) 13.1 L (20.0-40.0) % [place] % (Auto) 8.2 (0.0-10.0) % Eos % (Auto) 0.3 (0.0-4.0) % Baso % (Auto) 0.2 (0.0-2.0) % Neut # 25.6 H (1.8-7.0) K/uL Lymph # 4.3 (1.0-4.3) K/uL [place] # 2.7 H (0.0-0.8) K/uL Eos # 0.1 (0.0-0.7) K/uL Baso # 0.1 (0.0-0.2) K/uL Neutrophils % (Manual) 57 (50-75) % Band Neutrophils % 13 H* (0-2) % Lymphocytes % (Manual) 19 L (20-40) % Monocytes % (Manual) 6 (0-10) % Metamyelocytes % 2 H (0-0) % Myelocytes % 3 H (0-0) % Nucleated RBC % 2 H (0-0) % Platelet Estimate Slightly increased H (NORMAL) Polychromasia Slight Hypochromasia (manual) Slight Anisocytosis (manual) Slight Sodium 130 L (132-148) mmol/L Potassium 4.0 (3.6-5.2) mmol/L Chloride 100 (98-107) mmol/L Carbon Dioxide 21 L (22-30) mmol/L Anion Gap 13 (10-20) BUN 11 (7-17) mg/dL Creatinine 0.5 L (0.7-1.2) MG/DL Est GFR ( Amer) > 60 Est GFR (Non-Af Amer) > 60 Random Glucose 77 (65-105) mg/dL Calcium 7.5 L (8.6-10.4) mg/dl Phosphorus 4.3 (2.5-4.5) mg/dL Magnesium 1.9 (1.6-2.3) mg/dL Total Bilirubin 0.2 (0.2-1.3) mg/dL AST 37 H (14-36) U/L ALT 23 (9-52) U/L Alkaline Phosphatase 37 L D (38-126) U/L Total Protein 4.3 L (6.3-8.3) g/dL Albumin 2.0 L (3.5-5.0) g/dL Globulin 2.3 (2.2-3.9) gm/dL Albumin/Globulin Ratio 0.9 L (1.0-2.1) Laboratory Results - last 24 hr 07/22/16 06:25 WBC 32.7 H RBC 4.29 Hgb 11.7 Hct 36.6 MCV 85.2 MCH 27.3 MCHC 32.0 L RDW 15.8 H Plt Count 523 H D MPV 7.9 Neut % (Auto) 78.2 H Lymph % (Auto) 13.1 L [place] % (Auto) 8.2 Eos % (Auto) 0.3 Baso % (Auto) 0.2 Neut # 25.6 H Lymph # 4.3 [place] # 2.7 H Eos # 0.1 Baso # 0.1 Neutrophils % (Manual) 57 Band Neutrophils % 13 H* Lymphocytes % (Manual) 19 L Monocytes % (Manual) 6 Metamyelocytes % 2 H Myelocytes % 3 H Nucleated RBC % 2 H Platelet Estimate Slightly increased H Polychromasia Slight Hypochromasia (manual) Slight Anisocytosis (manual) Slight Sodium 130 L Potassium 4.0 Chloride 100 Carbon Dioxide 21 L Anion Gap 13 BUN 11 Creatinine 0.5 L Est GFR ( Amer) > 60 Est GFR (Non-Af Amer) > 60 Random Glucose 77 Calcium 7.5 L Phosphorus 4.3 Magnesium 1.9 Total Bilirubin 0.2 AST 37 H ALT 23 Alkaline Phosphatase 37 L D Total Protein 4.3 L Albumin 2.0 L Globulin 2.3 Albumin/Globulin Ratio 0.9 L Critical Care Progress Note - Nutrition Nutrition: Nutrition Category Date Time Status Pureed [Dysphagia/Modified Consistency Diet] [DIET] Diets 07/19/16 Breakfast Active Attending/Attestation - Attestation I have personally seen and examined this patient.: Yes I have fully participated in the care of the patient.: Yes Notes (Text): Today: Saturday, July 16, 2016 The Patient was seen and examined at the bedside, Medical records reviewed, all clinical/lab/hemodynamic/radiographic data were reviewed and management issues were discussed and formulated, Events reviewed Pain issues, skin care, head of the bed elevation, glycemic control were addressed. Agree with above treatment plans as transcribed in Dr. Pedro note
[2016-07-16] MEDS: Potassium Chloride 20 mEq 100 ML IVPB SCH ×2 (09:41→11:31)
--- NOTE | 2016-07-16 10:07 | RAD ---
HISTORY: intubated COMPARISON: 07/15/2016. FINDINGS: LUNGS: No focal airspace opacity. Please note that the right apex is not clearly seen. PLEURA: No significant pleural effusion identified, no pneumothorax apparent. CARDIOVASCULAR: Normal. OSSEOUS STRUCTURES: The osseous structures demonstrate degenerative changes. VISUALIZED UPPER ABDOMEN: Upper abdomen is suboptimally evaluated. OTHER FINDINGS: Presumed right-sided vascular catheter with the distal tip of the catheter overlying the projection of the SVC/right atrial junction. ET tube with the distal tip above the tracheal bifurcation. Feeding tube noted with the distal tip above the level of the diaphragm. IMPRESSION: Feeding tube noted above the level of the diaphragm. Discussed with nurse Do approximately 9:55 on 07/16/2016.
[2016-07-16] MEDS: Vancomycin 125 MG/5 ML SOLN (ORAL/RECTAL) PO SCH ×4 (11:32→22:30)
[2016-07-16] MEDS ORDERED: PPN#2 IV ONE (18:00)
[2016-07-16] MEDS ORDERED: Midazolam 2 MG/2 ML VIAL IV PRN (21:53)
[2016-07-16] MEDS ORDERED: DiphenhydrAMINE 50 mg/ml Inj IVP STA ×2 (21:59→22:06)
[2016-07-17 04:47] LABS: ABG ALLEN TEST POS; ABG MECHANICAL RATE 14; ARTERIAL BLOOD HGB O2 SAT 96.8 % (95.0-98.0); ATERIAL BLOOD GAS PEEP 5; CARBOXYHEMOGLOBIN 1.6 % (0.5-1.5); DRAW SITE RR; HHB 0.3 % (0.0-5.0); METHEMOGLOBIN 1.3 % (0.0-3.0)
[2016-07-17] MEDS: metroNIDAZOLE IV 500 mg/100 ml 100 ML IVPB SCH ×3 (06:34→21:25)
[2016-07-17] MEDS: Sodium Chloride 0.9% 1,000 ML IV SCH ×3 (06:37→21:28)
[2016-07-17 06:45] LABS: BASO # 0.1 K/uL (0.0-0.2); BASO % 0.2 % (0.0-2.0); EOS # 0.3 K/uL (0.0-0.7); EOS % 0.6 % (0.0-4.0); LYMPH % 4.3 % (20.0-40.0); MEAN CELL VOLUME 84.7 fL (81.0-99.0); MEAN CORPUSCULAR HEMOGLOBIN 27.6 pg (27.0-31.0); MEAN CORPUSCULAR HGB CONC 32.6 g/dL (33.0-37.0); MEAN PLATELET VOLUME 7.9 fL (7.2-11.7); MONO # 2.2 K/uL (0.0-0.8); MONO % 4.7 % (0.0-10.0); PLATELET COUNT 432 K/uL (130-400); RED CELL DISTRIBUTION WIDTH 15.8 % (11.5-14.5)
[2016-07-17 07:12] LABS: CHLORIDE 107 mmol/L (98-107)
[2016-07-17 07:13] LABS: SODIUM 131 mmol/L (132-148)
[2016-07-17 07:15] LABS: ALB/GLOB RATIO 0.6 (1.0-2.1); ALKALINE PHOSPHATASE 80 U/L (38-126); AST/SGOT 26 U/L (14-36); BILIRUBIN,TOTAL 0.3 mg/dL (0.2-1.3); CARBON DIOXIDE 15 mmol/L (22-30); GFR AFRICAN-AMERICAN > 60; TOTAL PROTEIN 4.7 g/dL (6.3-8.3)
[2016-07-17 07:16] LABS: ALT/SGPT 26 U/L (9-52); BLOOD UREA NITROGEN 28 mg/dL (7-17); CALCIUM 6.9 mg/dl (8.6-10.4); GLUCOSE,RANDOM 109 mg/dL (65-105); MAGNESIUM 2.2 mg/dL (1.6-2.3); PHOSPHOROUS 2.9 mg/dL (2.5-4.5)
[2016-07-17 07:25] LABS: WHITE BLOOD COUNT 46.6 K/uL (4.8-10.8)
[2016-07-17 09:09] LABS: NEUTROPHIL 60 % (50-75); REACTIVE LYMPHOCYTES 4 % (0-0); TOTAL CELLS COUNTED 100
[2016-07-17 09:10] LABS: LARGE PLATELETS PRESENT
--- NOTE | 2016-07-17 09:25 | CP.PCM.PN ---
Subjective - Date & Time of Evaluation Date of Evaluation: 07/16/16 Time of Evaluation: 10:00 - Subjective Subjective: F/U colitis. Pt was seen 07/16/16. Some soft BMs. No report of RB, melena, hemoptysis, cough, hematuria, SZ, tremor Objective - Vital Signs/Intake and Output Vital Signs (last 24 hours): Temp Pulse Resp BP Pulse Ox 99.3 F 63 20 115/54 L 100 07/17/16 04:00 07/17/16 04:00 07/17/16 04:00 07/17/16 04:00 07/17/16 04:00 Intake and Output: 07/17/16 07/17/16 06:59 18:59 Intake Total 2111.8 161.4 Output Total 192 30 Balance 1919.8 131.4 - Medications Medications: Current Medications Acetaminophen (Tylenol 325mg Tab) 650 mg PO Q4 PRN PRN Reason: Fever >100.4 F Last Admin: 07/15/16 09:14 Dose: 650 mg Famotidine (Pepcid) 20 mg IVP Q12 [facility] Last Admin: 07/16/16 22:30 Dose: 20 mg Heparin Sodium (Porcine) (Heparin) 5,000 units SC Q8 [facility] Last Admin: 07/17/16 06:36 Dose: 5,000 units Metronidazole (Flagyl) 100 mls @ 100 mls/hr IVPB Q8 [facility] Last Admin: 07/17/16 06:34 Dose: 100 mls/hr Norepinephrine Bitartrate 4 mg (/ Sodium Chloride) 254 mls @ 15.24 mls/hr IV .[id number] PRN; Protocol; 4 MCG/MIN PRN Reason: TITRATE PER MD ORDER Last Admin: 07/16/16 13:19 Dose: 11.43 mls/hr Sodium Chloride (Sodium Chloride 0.9%) 1,000 mls @ 125 mls/hr IV .Q8H [facility] Last Admin: 07/17/16 06:37 Dose: 125 mls/hr Midazolam HCl (Versed Inj) 1 mg IV Q6H PRN PRN Reason: Sedation Last Admin: 07/16/16 22:30 Dose: 1 mg Rifaximin (Xifaxan) 550 mg PO BID [facility] Last Admin: 07/16/16 18:19 Dose: 550 mg Vancomycin HCl (Vancocin (Oral Or Rectal Use)) 500 mg PO QID YAMILETH Last Admin: 07/16/16 22:30 Dose: 500 mg - Labs Labs: 07/17/16 06:36 07/17/16 06:36 PT 14.8 SECONDS (9.7-12.2) H 07/14/16 01:01 INR 1.3 07/14/16 01:01 APTT 37 SECONDS (21-34) H 07/14/16 01:01 - Respiratory Exam Respiratory Exam: Clear to Ausculation Bilateral - Cardiovascular Exam Cardiovascular Exam: RRR - GI/Abdominal Exam GI & Abdominal Exam: Distended, Tenderness, Normal Bowel Sounds Additional comments: Mild mid tenderness - Neurological Exam Neurological Exam: Alert, Awake Assessment and Plan (1) Acute respiratory failure Status: Acute (2) Hyponatremia Status: Acute (3) Sepsis Assessment & Plan: wbc sl improving Status: Acute (4) Abdominal pain Status: Acute (5) GERD (gastroesophageal reflux disease) Status: Chronic (6) Colitis Assessment & Plan: r/o c difficile Check stools. F/u wbc. Continue vanco Status: Acute
[2016-07-17] MEDS: Vancomycin 125 MG/5 ML SOLN (ORAL/RECTAL) PO SCH ×4 (10:41→21:30)
[2016-07-17] MEDS: Vancomycin 125 MG/5 ML SOLN (ORAL/RECTAL) PR SCH ×3 (10:42→18:34)
--- NOTE | 2016-07-17 10:49 | CP.PCM.PN ---
Subjective - Date & Time of Evaluation Date of Evaluation: 07/17/16 Time of Evaluation: 10:30 - Subjective Subjective: F/U colitis. C difficile is + Occasional soft stools. No report of RB, melena, SZ, hemoptysis, hematuria, MADRID, cough, tremor. Objective - Vital Signs/Intake and Output Vital Signs (last 24 hours): Temp Pulse Resp BP Pulse Ox 99.3 F 63 20 93/47 L 100 07/17/16 04:00 07/17/16 04:00 07/17/16 04:00 07/17/16 10:44 07/17/16 04:00 Intake and Output: 07/17/16 07/17/16 06:59 18:59 Intake Total 2111.8 161.4 Output Total 192 30 Balance 1919.8 131.4 - Medications Medications: Current Medications Acetaminophen (Tylenol 325mg Tab) 650 mg PO Q4 PRN PRN Reason: Fever >100.4 F Last Admin: 07/15/16 09:14 Dose: 650 mg Famotidine (Pepcid) 20 mg IVP Q12 [facility] Last Admin: 07/17/16 10:42 Dose: 20 mg Heparin Sodium (Porcine) (Heparin) 5,000 units SC Q8 [facility] Last Admin: 07/17/16 06:36 Dose: 5,000 units Metronidazole (Flagyl) 100 mls @ 100 mls/hr IVPB Q8 [facility] Last Admin: 07/17/16 06:34 Dose: 100 mls/hr Norepinephrine Bitartrate 4 mg (/ Sodium Chloride) 254 mls @ 15.24 mls/hr IV .[id number] PRN; Protocol; 4 MCG/MIN PRN Reason: TITRATE PER MD ORDER Last Admin: 07/17/16 10:44 Dose: 11.43 mls/hr Sodium Chloride (Sodium Chloride 0.9%) 1,000 mls @ 125 mls/hr IV .Q8H [facility] Last Admin: 07/17/16 06:37 Dose: 125 mls/hr Midazolam HCl (Versed Inj) 1 mg IV Q6H PRN PRN Reason: Sedation Last Admin: 07/16/16 22:30 Dose: 1 mg Rifaximin (Xifaxan) 550 mg PO BID [facility] Last Admin: 07/17/16 10:42 Dose: 550 mg Vancomycin HCl (Vancocin (Oral Or Rectal Use)) 500 mg PO QID [facility] Last Admin: 07/17/16 10:41 Dose: 500 mg Vancomycin HCl (Vancocin (Oral Or Rectal Use)) 500 mg MN TID [facility] Last Admin: 07/17/16 10:42 Dose: 500 mg - Labs Labs: 07/17/16 06:36 07/17/16 06:36 PT 14.8 SECONDS (9.7-12.2) H 07/14/16 01:01 INR 1.3 07/14/16 01:01 APTT 37 SECONDS (21-34) H 07/14/16 01:01 - Respiratory Exam Respiratory Exam: Clear to Ausculation Bilateral - Cardiovascular Exam Cardiovascular Exam: RRR - GI/Abdominal Exam GI & Abdominal Exam: Distended, Tenderness Additional comments: BSs present. Mild mid abdom tenderness. - Neurological Exam Additional comments: responds, opens eyes. Assessment and Plan (1) Acute respiratory failure Status: Acute (2) Hyponatremia Status: Acute (3) Sepsis Status: Acute (4) Abdominal pain Status: Acute (5) GERD (gastroesophageal reflux disease) Status: Chronic (6) Colitis Assessment & Plan: c difficile.. Continue meds. Check CBC. Status: Acute
[2016-07-17] MEDS ORDERED: Albumin Human 25% (12.5 gm/50 ml) IV ONE (11:17)
--- NOTE | 2016-07-17 14:47 | CP.PCM.PN ---
Subjective - Date & Time of Evaluation Date of Evaluation: 07/17/16 Time of Evaluation: 14:42 - Subjective Subjective: INFECTIOUS DISEASE ICU PROGRESS NOTES EDEN VERA MD, FACP 07/16- ICU/CCU #6 81 YEAR OLD WHITE FEMALE SLOWLY RESPONDING TO IV FLAGYL AND PO/CA VANCOMYCIN. OF NOTE HER FAMILY AND STAFF MENTION THAT SHE WAS SELF MEDICATING HERSELF WITH IMODIUM AT [facility] REHAB/LONG-TERM. Objective - Vital Signs/Intake and Output Vital Signs (last 24 hours): Temp Pulse Resp BP Pulse Ox 99.3 F 63 20 93/47 L 90 L 07/17/16 04:00 07/17/16 04:00 07/17/16 04:00 07/17/16 10:44 07/17/16 12:47 Intake and Output: 07/17/16 07/17/16 06:59 18:59 Intake Total 2111.8 161.4 Output Total 192 30 Balance 1919.8 131.4 - Medications Medications: Current Medications Acetaminophen (Tylenol 325mg Tab) 650 mg PO Q4 PRN PRN Reason: Fever >100.4 F Last Admin: 07/15/16 09:14 Dose: 650 mg Famotidine (Pepcid) 20 mg IVP Q12 [facility] Last Admin: 07/17/16 10:42 Dose: 20 mg Heparin Sodium (Porcine) (Heparin) 5,000 units SC Q8 [facility] Last Admin: 07/17/16 06:36 Dose: 5,000 units Metronidazole (Flagyl) 100 mls @ 100 mls/hr IVPB Q8 [facility] Last Admin: 07/17/16 06:34 Dose: 100 mls/hr Norepinephrine Bitartrate 4 mg (/ Sodium Chloride) 254 mls @ 15.24 mls/hr IV .[id number] PRN; Protocol; 4 MCG/MIN PRN Reason: TITRATE PER MD ORDER Last Admin: 07/17/16 10:44 Dose: 11.43 mls/hr Sodium Chloride (Sodium Chloride 0.9%) 1,000 mls @ 125 mls/hr IV .Q8H [facility] Last Admin: 07/17/16 13:01 Dose: Not Given Midazolam HCl (Versed Inj) 1 mg IV Q6H PRN PRN Reason: Sedation Last Admin: 07/16/16 22:30 Dose: 1 mg Rifaximin (Xifaxan) 550 mg PO BID [facility] Last Admin: 07/17/16 10:42 Dose: 550 mg Vancomycin HCl (Vancocin (Oral Or Rectal Use)) 500 mg PO QID [facility] Last Admin: 07/17/16 10:41 Dose: 500 mg Vancomycin HCl (Vancocin (Oral Or Rectal Use)) 500 mg CA TID [facility] Last Admin: 07/17/16 10:42 Dose: 500 mg - Labs Labs: 07/17/16 06:36 07/17/16 06:36 PT 14.8 SECONDS (9.7-12.2) H 07/14/16 01:01 INR 1.3 07/14/16 01:01 APTT 37 SECONDS (21-34) H 07/14/16 01:01 - Constitutional Appears: In Acute Distress, Chronically Ill - Head Exam Head Exam: ATRAUMATIC, NORMOCEPHALIC - Eye Exam Eye Exam: Normal appearance - ENT Exam ENT Exam: Mucous Membranes Moist - Neck Exam Additional comments: INTUBATED - Respiratory Exam Respiratory Exam: Decreased Breath Sounds, NORMAL BREATHING PATTERN - Cardiovascular Exam Cardiovascular Exam: REGULAR RHYTHM - GI/Abdominal Exam GI & Abdominal Exam: Distended, Tenderness, Diminished Bowel Sounds. absent: Guarding, Rigid, Mass - Rectal Exam Rectal Exam: Deferred - Extremities Exam Extremities Exam: Normal Inspection - Neurological Exam Neurological Exam: Alert, Awake - Psychiatric Exam Psychiatric exam: Anxious, Depressed - Skin Skin Exam: Dry, Warm Assessment and Plan (1) C. difficile colitis Status: Acute (2) Acute respiratory failure Status: Acute (3) Hyponatremia Status: Resolved (4) GERD (gastroesophageal reflux disease) Status: Chronic (5) Knee injury Status: Chronic (6) Sepsis Status: Acute (7) Bladder incontinence Status: Chronic (8) Abdominal pain Status: Acute (9) Seizure disorder Status: Chronic
--- NOTE | 2016-07-17 18:52 | CP.CCUPN ---
CCU Subjective - Physician Review Events Since Last Encounter (Free Text): 07/17/16 18:49 81 year old female with a past medical history of HTN, arthritis, anxiety, seizures, back problems and gall bladder disease presents with C-diff colitis. Patient on antibiotics and monitored in critical care setting Remains intubated on ventilatory support Response to vocal command Afebrile CCU Objective - Vital Signs / Intake & Output Vital Signs (Last 4 hours): Vital Signs Temp 07/17/16 16:00 98.1 F Intake and Output (Last 8hrs): Intake & Output 07/17/16 07/17/16 07/17/16 06:59 14:59 22:59 Intake Total 1386.2 1291.2 484.2 Output Total 147 170 70 Balance 1239.2 1121.2 414.2 Intake: Intake, IV Amount 1191.2 1091.2 409.2 Right Proximal Port 1100 1000 375 Right Medial Port 91.2 91.2 34.2 Internal Jugular Oral 0 0 Tube Feeding 195 200 75 Output: Urine 145 170 70 Urethral (Kowalski) 145 170 70 Stool 2 0 Other: # Bowel Movements 1 - Physical Exam Head: Positive for: Atraumatic, Normocephalic Pupils: Positive for: PERRL Extroacular Muscles: Positive for: EOMI Conjunctiva: Positive for: Normal Ears: Positive for: Normal Mouth: Positive for: Moist Mucous Membranes Respiratory/Chest: Positive for: Clear to Auscultation. Negative for: Wheezes Cardiovascular: Positive for: Normal S1, S2 Abdomen: Positive for: Distention, Normal Bowel Sounds. Negative for: Peritoneal Signs Upper Extremity: Positive for: NORMAL PULSES Lower Extremity: Negative for: Edema Skin: Positive for: Warm, Dry Psychiatric: Positive for: Other (sedated at this time). Negative for: Alert - Medications Active Medications: Active Medications Generic Name Dose Route Start Last Admin Trade Name Freq PRN Reason Stop Dose Admin Acetaminophen 650 mg 07/14/16 04:18 07/15/16 09:14 Tylenol 325mg Tab PO 650 mg Q4 PRN Administration Fever >100.4 F Famotidine 20 mg 07/14/16 10:00 07/17/16 10:42 Pepcid IVP 20 mg Q12 [facility] Administration Heparin Sodium (Porcine) 5,000 units 07/14/16 06:00 07/17/16 15:35 Heparin SC 5,000 units Q8 [facility] Administration Metronidazole 100 mls @ 100 mls/hr 07/14/16 06:45 07/17/16 15:35 Flagyl IVPB 100 mls/hr Q8 [facility] Administration Norepinephrine Bitartrate 4 mg 254 mls @ 15.24 mls/hr 07/14/16 09:08 07/17/16 10:44 / Sodium Chloride IV 11.43 mls/hr .[id number] PRN Administration TITRATE PER MD ORDER Protocol 4 MCG/MIN Sodium Chloride 1,000 mls @ 125 mls/hr 07/14/16 13:06 07/17/16 13:01 Sodium Chloride 0.9% IV Not Given .Q8H [facility] Midazolam HCl 1 mg 07/16/16 21:53 07/16/16 22:30 Versed Inj IV 1 mg Q6H PRN Administration Sedation Rifaximin 550 mg 07/16/16 10:45 07/17/16 18:35 Xifaxan PO 550 mg BID [facility] Administration Vancomycin HCl 500 mg 07/14/16 10:00 07/17/16 18:34 Vancocin (Oral Or Rectal Use) PO 500 mg QID [facility] Administration Vancomycin HCl 500 mg 07/17/16 10:00 07/17/16 18:34 Vancocin (Oral Or Rectal Use) NC 500 mg TID [facility] Administration - Patient Studies Lab Studies: Lab Studies 07/17/16 07/17/16 07/17/16 Range/Units 12:52 06:36 04:35 WBC 46.6 H* (4.8-10.8) K/uL RBC 4.02 (3.80-5.20) Mil/uL Hgb 11.1 (11.0-16.0) g/dL Hct 34.0 (34.0-47.0) % MCV 84.7 (81.0-99.0) fL MCH 27.6 (27.0-31.0) pg MCHC 32.6 L (33.0-37.0) g/dL RDW 15.8 H (11.5-14.5) % Plt Count 432 H (130-400) K/uL MPV 7.9 (7.2-11.7) fL Neut % (Auto) 90.2 H (50.0-75.0) % Lymph % (Auto) 4.3 L (20.0-40.0) % [place] % (Auto) 4.7 (0.0-10.0) % Eos % (Auto) 0.6 (0.0-4.0) % Baso % (Auto) 0.2 (0.0-2.0) % Neut # 42.0 H (1.8-7.0) K/uL Lymph # 2.0 (1.0-4.3) K/uL [place] # 2.2 H (0.0-0.8) K/uL Eos # 0.3 (0.0-0.7) K/uL Baso # 0.1 (0.0-0.2) K/uL Neutrophils % (Manual) 60 (50-75) % Band Neutrophils % 26 H* (0-2) % Lymphocytes % (Manual) 2 L (20-40) % Reactive Lymphs % 4 H (0-0) % Monocytes % (Manual) 8 (0-10) % Toxic Granulation Present Platelet Estimate Slightly increased H (NORMAL) Large Platelets Present Polychromasia Slight Hypochromasia (manual) Slight Poikilocytosis (manual Slight Anisocytosis (manual) Slight Ovalocytes Slight [place] Cells Slight Puncture Site Rr pCO2 25 L (35-45) mm/Hg pO2 153 H (80-100) mm/Hg HCO3 15.5 L (21-28) mmol/L ABG pH 7.31 L (7.35-7.45) ABG Total CO2 13.4 L (22-28) mmol/L ABG O2 Saturation 99.7 H (95-98) % ABG Base Excess -12.1 L (-2.0-3.0) mmol/L ABG Hemoglobin 11.0 L (11.7-17.4) g/dL ABG Carboxyhemoglobin 1.6 H (0.5-1.5) % POC ABG HHb (Measured) 0.3 (0.0-5.0) % ABG Methemoglobin 1.3 (0.0-3.0) % Wesley Test Pos A-a O2 Difference 101.0 mm/Hg Respiratory Index 0.7 Hgb O2 Saturation 96.8 (95.0-98.0) % Mechanical Rate 14 FiO2 40.0 % Tidal Volume 500 PEEP 5 Sodium 131 L (132-148) mmol/L Potassium 4.0 (3.6-5.2) mmol/L Chloride 107 (98-107) mmol/L Carbon Dioxide 15 L (22-30) mmol/L Anion Gap 13 (10-20) BUN 28 H (7-17) mg/dL Creatinine 1.0 (0.7-1.2) MG/DL Est GFR ( Amer) > 60 Est GFR (Non-Af Amer) 53 Random Glucose 109 H (65-105) mg/dL Lactic Acid 0.9 (0.7-2.1) mmol/L Calcium 6.9 L (8.6-10.4) mg/dl Phosphorus 2.9 (2.5-4.5) mg/dL Magnesium 2.2 (1.6-2.3) mg/dL Total Bilirubin 0.3 (0.2-1.3) mg/dL AST 26 (14-36) U/L ALT 26 (9-52) U/L Alkaline Phosphatase 80 (38-126) U/L Total Protein 4.7 L (6.3-8.3) g/dL Albumin 1.8 L (3.5-5.0) g/dL Globulin 2.9 (2.2-3.9) gm/dL Albumin/Globulin Ratio 0.6 L (1.0-2.1) Laboratory Results - last 24 hr 07/17/16 07/17/16 07/17/16 04:35 06:36 12:52 WBC 46.6 H* RBC 4.02 Hgb 11.1 Hct 34.0 MCV 84.7 MCH 27.6 MCHC 32.6 L RDW 15.8 H Plt Count 432 H MPV 7.9 Neut % (Auto) 90.2 H Lymph % (Auto) 4.3 L [place] % (Auto) 4.7 Eos % (Auto) 0.6 Baso % (Auto) 0.2 Neut # 42.0 H Lymph # 2.0 [place] # 2.2 H Eos # 0.3 Baso # 0.1 Neutrophils % (Manual) 60 Band Neutrophils % 26 H* Lymphocytes % (Manual) 2 L Reactive Lymphs % 4 H Monocytes % (Manual) 8 Toxic Granulation Present Platelet Estimate Slightly increased H Large Platelets Present Polychromasia Slight Hypochromasia (manual) Slight Poikilocytosis (manual Slight Anisocytosis (manual) Slight Ovalocytes Slight [place] Cells Slight Puncture Site Rr pCO2 25 L pO2 153 H HCO3 15.5 L ABG pH 7.31 L ABG Total CO2 13.4 L ABG O2 Saturation 99.7 H ABG Base Excess -12.1 L ABG Hemoglobin 11.0 L ABG Carboxyhemoglobin 1.6 H POC ABG HHb (Measured) 0.3 ABG Methemoglobin 1.3 [place] Test Pos A-a O2 Difference 101.0 Respiratory Index 0.7 Hgb O2 Saturation 96.8 Mechanical Rate 14 FiO2 40.0 Tidal Volume 500 PEEP 5 Sodium 131 L Potassium 4.0 Chloride 107 Carbon Dioxide 15 L Anion Gap 13 BUN 28 H Creatinine 1.0 Est GFR ( Amer) > 60 Est GFR (Non-Af Amer) 53 Random Glucose 109 H Lactic Acid 0.9 Calcium 6.9 L Phosphorus 2.9 Magnesium 2.2 Total Bilirubin 0.3 AST 26 ALT 26 Alkaline Phosphatase 80 Total Protein 4.7 L Albumin 1.8 L Globulin 2.9 Albumin/Globulin Ratio 0.6 L Review of Systems - Review of Systems Systems not reviewed;Unavailable: Intubated Critical Care Progress Note - Ventilator Checklist Head of Bed 30 Degrees: Yes Daily Sedation Vacation: Yes Daily Spontaneous Breathing Trial: Yes - Vent Settings MODE:: PRVC Assessment/Plan (1) Acute respiratory failure Current Visit: Yes Status: Acute Comment: wean as tolerated Continue treatment for C. difficile colitis Condition: Improving (2) C. difficile colitis Current Visit: Yes Status: Acute
[2016-07-18 05:27] LABS: ABG ALLEN TEST POS; ABG MECHANICAL RATE 14; ARTERIAL BLOOD HGB O2 SAT 96.5 % (95.0-98.0); ATERIAL BLOOD GAS PEEP 5; CARBOXYHEMOGLOBIN 1.8 % (0.5-1.5); DRAW SITE RR; HHB 0.3 % (0.0-5.0); METHEMOGLOBIN 1.4 % (0.0-3.0)
[2016-07-18] MEDS: metroNIDAZOLE IV 500 mg/100 ml 100 ML IVPB SCH ×3 (05:45→22:00)
[2016-07-18] MEDS: Sodium Chloride 0.9% 1,000 ML IV SCH ×3 (05:47→15:42)
[2016-07-18 06:44] LABS: BASO # 0.1 K/uL (0.0-0.2); BASO % 0.2 % (0.0-2.0); EOS # 0.1 K/uL (0.0-0.7); EOS % 0.3 % (0.0-4.0); HEMATOCRIT 33.7 % (34.0-47.0); LYMPH # 2.7 K/uL (1.0-4.3); LYMPH % 5.9 % (20.0-40.0); MEAN CELL VOLUME 84.4 fL (81.0-99.0); MEAN CORPUSCULAR HEMOGLOBIN 27.4 pg (27.0-31.0); MEAN CORPUSCULAR HGB CONC 32.4 g/dL (33.0-37.0); MEAN PLATELET VOLUME 8.1 fL (7.2-11.7); MONO # 3.3 K/uL (0.0-0.8); MONO % 7.1 % (0.0-10.0); NRBC % 0.1 % (0.0-2.0); PLATELET COUNT 438 K/uL (130-400); RED CELL DISTRIBUTION WIDTH 15.9 % (11.5-14.5)
[2016-07-18 06:46] LABS: CHLORIDE 107 mmol/L (98-107); POTASSIUM 4.1 mmol/L (3.6-5.2); SODIUM 132 mmol/L (132-148)
[2016-07-18 06:48] LABS: BILIRUBIN,TOTAL 0.2 mg/dL (0.2-1.3); GFR AFRICAN-AMERICAN > 60
[2016-07-18 06:49] LABS: ALKALINE PHOSPHATASE 78 U/L (38-126); ALT/SGPT 16 U/L (9-52); AST/SGOT 38 U/L (14-36); BLOOD UREA NITROGEN 26 mg/dL (7-17); CARBON DIOXIDE 13 mmol/L (22-30); GLUCOSE,RANDOM 85 mg/dL (65-105); TOTAL PROTEIN 4.4 g/dL (6.3-8.3)
[2016-07-18 06:50] LABS: CALCIUM 7.2 mg/dl (8.6-10.4); MAGNESIUM 2.2 mg/dL (1.6-2.3)
[2016-07-18 06:56] LABS: ALB/GLOB RATIO 0.8 (1.0-2.1)
[2016-07-18 07:04] LABS: WHITE BLOOD COUNT 46.8 K/uL (4.8-10.8)
[2016-07-18 08:49] LABS: METAMYELOCYTE 5 % (0-0); TOTAL CELLS COUNTED 100
[2016-07-18 08:52] LABS: MYELOCYTE 9 % (0-0); NEUTROPHIL 52 % (50-75)
[2016-07-18 08:56] LABS: LARGE PLATELETS PRESENT
[2016-07-18] MEDS: Vancomycin 125 MG/5 ML SOLN (ORAL/RECTAL) PO SCH ×4 (09:39→22:00)
[2016-07-18] MEDS: Vancomycin 125 MG/5 ML SOLN (ORAL/RECTAL) PR SCH ×3 (10:09→17:41)
[2016-07-18] MEDS: Albumin Human 25% (12.5 gm/50 ml) IV SCH ×2 (10:59→15:42)
--- NOTE | 2016-07-18 11:29 | CP.PCM.PN ---
Subjective - Date & Time of Evaluation Date of Evaluation: 07/18/16 Time of Evaluation: 11:40 - Subjective Subjective: F/u colitis. Having diarrhea. Pt is more awake. No report of RB, melena, chills, SZ, hematuria, MADRID, cough, hematemesis, hemoptysis, tremor, jaundice, pruritis Objective - Vital Signs/Intake and Output Vital Signs (last 24 hours): Temp Pulse Resp BP Pulse Ox 98 F 88 26 H 124/63 98 07/18/16 08:00 07/18/16 11:02 07/18/16 11:02 07/18/16 11:02 07/18/16 11:02 Intake and Output: 07/18/16 07/18/16 06:59 18:59 Intake Total 2145.2 994.0 Output Total 385 250 Balance 1760.2 744.0 - Medications Medications: Current Medications Acetaminophen (Tylenol 325mg Tab) 650 mg PO Q4 PRN PRN Reason: Fever >100.4 F Last Admin: 07/15/16 09:14 Dose: 650 mg Albumin Human (Albumin Human 25% (12.5 Gm/50 Ml)) 12.5 gm IV Q5H [facility] Stop: 07/18/16 15:46 Last Admin: 07/18/16 10:59 Dose: 12.5 gm Famotidine (Pepcid) 20 mg IVP Q12 [facility] Last Admin: 07/18/16 09:39 Dose: 20 mg Heparin Sodium (Porcine) (Heparin) 5,000 units SC Q8 [facility] Last Admin: 07/18/16 05:46 Dose: 5,000 units Metronidazole (Flagyl) 100 mls @ 100 mls/hr IVPB Q8 [facility] Last Admin: 07/18/16 05:45 Dose: 100 mls/hr Norepinephrine Bitartrate 4 mg (/ Sodium Chloride) 254 mls @ 15.24 mls/hr IV .[id number] PRN; Protocol; 4 MCG/MIN PRN Reason: TITRATE PER MD ORDER Last Titration: 07/18/16 08:00 Dose: 1 mcg/min Sodium Chloride (Sodium Chloride 0.9%) 1,000 mls @ 125 mls/hr IV .Q8H [facility] Last Admin: 07/18/16 05:47 Dose: 125 mls/hr Midazolam HCl (Versed Inj) 1 mg IV Q6H PRN PRN Reason: Sedation Last Admin: 07/16/16 22:30 Dose: 1 mg Rifaximin (Xifaxan) 550 mg PO BID [facility] Last Admin: 07/18/16 09:39 Dose: 550 mg Vancomycin HCl (Vancocin (Oral Or Rectal Use)) 500 mg PO QID [facility] Last Admin: 07/18/16 09:39 Dose: 500 mg Vancomycin HCl (Vancocin (Oral Or Rectal Use)) 500 mg MO TID [facility] Last Admin: 07/18/16 10:09 Dose: 500 mg - Labs Labs: 07/18/16 06:28 07/18/16 06:28 PT 14.8 SECONDS (9.7-12.2) H 07/14/16 01:01 INR 1.3 07/14/16 01:01 APTT 37 SECONDS (21-34) H 07/14/16 01:01 - Constitutional Appears: Other - ENT Exam Additional comments: Intubated - Respiratory Exam Respiratory Exam: Rhonchi - Cardiovascular Exam Cardiovascular Exam: REGULAR RHYTHM - GI/Abdominal Exam GI & Abdominal Exam: Distended. absent: Rebound Additional comments: BSs are hear, softly distended, less tender - Extremities Exam Extremities Exam: absent: Calf Tenderness - Neurological Exam Neurological Exam: Alert, Awake - Psychiatric Exam Psychiatric exam: Normal Mood - Skin Skin Exam: Intact Assessment and Plan (1) Acute respiratory failure Status: Acute (2) Hyponatremia Assessment & Plan: Better Status: Resolved (3) Sepsis Assessment & Plan: WBC and bands slowly improving. Status: Acute (4) Abdominal pain Status: Acute (5) GERD (gastroesophageal reflux disease) Status: Suspected (6) Colitis Assessment & Plan: c difficile. Continue flagyl and vanco. Xifaxin. Consider fecal transplant Status: Acute (7) Diarrhea Assessment & Plan: c difficile. Status: Acute
--- NOTE | 2016-07-18 12:14 | CP.PCM.PN ---
Subjective - Date & Time of Evaluation Date of Evaluation: 07/18/16 Time of Evaluation: 12:12 - Subjective Subjective: pt is on cpap doing ok but still elevated wbc no fever diarrhea noted low albumin feeding on continue the current treatment Objective - Vital Signs/Intake and Output Vital Signs (last 24 hours): Temp Pulse Resp BP Pulse Ox 98 F 88 26 H 124/63 98 07/18/16 08:00 07/18/16 11:02 07/18/16 11:02 07/18/16 11:02 07/18/16 11:02 Intake and Output: 07/18/16 07/18/16 06:59 18:59 Intake Total 2145.2 994.0 Output Total 385 250 Balance 1760.2 744.0 - Medications Medications: Current Medications Acetaminophen (Tylenol 325mg Tab) 650 mg PO Q4 PRN PRN Reason: Fever >100.4 F Last Admin: 07/15/16 09:14 Dose: 650 mg Albumin Human (Albumin Human 25% (12.5 Gm/50 Ml)) 12.5 gm IV Q5H [facility] Stop: 07/18/16 15:46 Last Admin: 07/18/16 10:59 Dose: 12.5 gm Famotidine (Pepcid) 20 mg IVP Q12 [facility] Last Admin: 07/18/16 09:39 Dose: 20 mg Heparin Sodium (Porcine) (Heparin) 5,000 units SC Q8 [facility] Last Admin: 07/18/16 05:46 Dose: 5,000 units Metronidazole (Flagyl) 100 mls @ 100 mls/hr IVPB Q8 [facility] Last Admin: 07/18/16 05:45 Dose: 100 mls/hr Norepinephrine Bitartrate 4 mg (/ Sodium Chloride) 254 mls @ 15.24 mls/hr IV .[id number] PRN; Protocol; 4 MCG/MIN PRN Reason: TITRATE PER MD ORDER Last Titration: 07/18/16 08:00 Dose: 1 mcg/min Sodium Chloride (Sodium Chloride 0.9%) 1,000 mls @ 125 mls/hr IV .Q8H [facility] Last Admin: 07/18/16 05:47 Dose: 125 mls/hr Midazolam HCl (Versed Inj) 1 mg IV Q6H PRN PRN Reason: Sedation Last Admin: 07/16/16 22:30 Dose: 1 mg Rifaximin (Xifaxan) 550 mg PO BID [facility] Last Admin: 07/18/16 09:39 Dose: 550 mg Vancomycin HCl (Vancocin (Oral Or Rectal Use)) 500 mg PO QID [facility] Last Admin: 07/18/16 09:39 Dose: 500 mg Vancomycin HCl (Vancocin (Oral Or Rectal Use)) 500 mg IN TID [facility] Last Admin: 07/18/16 10:09 Dose: 500 mg - Labs Labs: 07/18/16 06:28 07/18/16 06:28 PT 14.8 SECONDS (9.7-12.2) H 07/14/16 01:01 INR 1.3 07/14/16 01:01 APTT 37 SECONDS (21-34) H 07/14/16 01:01
--- NOTE | 2016-07-18 12:58 | RAD ---
HISTORY: follow up COMPARISON: Comparison chest dated 07/16/2016. FINDINGS: LUNGS: Low lung volumes, crowded bronchovascular markings and mild bibasilar atelectasis. There may also be small left questionable tiny left PLEURA: Right-sided effusions. No apparent CARDIOVASCULAR: Borderline cardiomegaly. OSSEOUS STRUCTURES: No significant abnormalities. VISUALIZED UPPER ABDOMEN: Normal. OTHER FINDINGS: Pneumothorax in situ ETT, tip of which lies approximately 5.67 cm above nuris. Right IJ central venous line with tip in the SVC unchanged. NGT is present, the distal aspect of which is poorly delineated on this study though does appear to be lie well below EG junction. IMPRESSION: ETT, NGT and right IJ central venous line unchanged. Low lung volumes crowded bronchovascular markings and mild bibasilar atelectasis. Questionable small left and tiny right effusion.
--- NOTE | 2016-07-18 16:08 | CP.PCM.PN ---
Subjective - Date & Time of Evaluation Date of Evaluation: 07/18/16 Time of Evaluation: 16:05 - Subjective Subjective: INFECTIOUS DISEASE ICU # 6 PROGRESS NOTE Candis VERA MD, FACP 07/18/2016 CHART REVIEWED PT EXCMAINED CASE DISCUSSED WITH FAMILY AND STAFF AWAKE AND ALERT STILL A LITTLE ACIDOTIC BUT BREATHI G BETTER DECREASED BREATH SOUNDS BILATERALLY ABD NO REBOUND EXT NO CCE SLOW RESPONCE WITH PO'/TX VANCOMYCIN. IF FECAL TRANSPLANT IS CONSIDERED PLEASE ARRANGE SAME. Objective - Vital Signs/Intake and Output Vital Signs (last 24 hours): Temp Pulse Resp BP Pulse Ox 98.4 F 93 H 26 H 127/71 98 07/18/16 12:00 07/18/16 15:02 07/18/16 15:02 07/18/16 15:02 07/18/16 15:02 Intake and Output: 07/18/16 07/18/16 06:59 18:59 Intake Total 2145.2 1704.0 Output Total 385 450 Balance 1760.2 1254.0 - Medications Medications: Current Medications Acetaminophen (Tylenol 325mg Tab) 650 mg PO Q4 PRN PRN Reason: Fever >100.4 F Last Admin: 07/15/16 09:14 Dose: 650 mg Famotidine (Pepcid) 20 mg IVP Q12 [facility] Last Admin: 07/18/16 09:39 Dose: 20 mg Heparin Sodium (Porcine) (Heparin) 5,000 units SC Q8 [facility] Last Admin: 07/18/16 13:34 Dose: 5,000 units Metronidazole (Flagyl) 100 mls @ 100 mls/hr IVPB Q8 [facility] Last Admin: 07/18/16 13:34 Dose: 100 mls/hr Norepinephrine Bitartrate 4 mg (/ Sodium Chloride) 254 mls @ 15.24 mls/hr IV .[id number] PRN; Protocol; 4 MCG/MIN PRN Reason: TITRATE PER MD ORDER Last Titration: 07/18/16 08:00 Dose: 1 mcg/min Sodium Chloride (Sodium Chloride 0.9%) 1,000 mls @ 75 mls/hr IV .[id number] [facility] Midazolam HCl (Versed Inj) 1 mg IV Q6H PRN PRN Reason: Sedation Last Admin: 07/16/16 22:30 Dose: 1 mg Rifaximin (Xifaxan) 550 mg PO BID [facility] Last Admin: 07/18/16 09:39 Dose: 550 mg Vancomycin HCl (Vancocin (Oral Or Rectal Use)) 500 mg PO QID [facility] Last Admin: 07/18/16 13:37 Dose: 500 mg Vancomycin HCl (Vancocin (Oral Or Rectal Use)) 500 mg [place] TID [facility] Last Admin: 07/18/16 13:38 Dose: 500 mg - Labs Labs: 07/18/16 06:28 07/18/16 06:28 PT 14.8 SECONDS (9.7-12.2) H 07/14/16 01:01 INR 1.3 07/14/16 01:01 APTT 37 SECONDS (21-34) H 07/14/16 01:01 - Constitutional Appears: Non-toxic, Older Than Stated Age, Chronically Ill - Head Exam Head Exam: ATRAUMATIC - Eye Exam Eye Exam: Normal appearance - ENT Exam ENT Exam: Mucous Membranes Dry - Neck Exam Neck Exam: absent: Meningismus, Tenderness - Respiratory Exam Respiratory Exam: Decreased Breath Sounds, Clear to Ausculation Bilateral, NORMAL BREATHING PATTERN - Cardiovascular Exam Cardiovascular Exam: REGULAR RHYTHM - GI/Abdominal Exam GI & Abdominal Exam: Tenderness, Diminished Bowel Sounds, Hypoactive Bowel Sounds. absent: Rigid, Organomegaly, Pulsatile Mass, Rebound - Rectal Exam Rectal Exam: Deferred Assessment and Plan (1) C. difficile colitis Status: Acute (2) Acute respiratory failure Status: Acute (3) Hyponatremia Status: Resolved (4) GERD (gastroesophageal reflux disease) Status: Suspected (5) Knee injury Status: Chronic (6) Sepsis Status: Acute (7) Bladder incontinence Status: Chronic (8) Abdominal pain Status: Acute (9) Seizure disorder Status: Chronic
--- NOTE | 2016-07-18 16:47 | CP.CCUPN ---
CCU Subjective - Physician Review Events Since Last Encounter (Free Text): 07/18/16 16:42 Alert and able to communicate using communication board, clinically stable. CCU Objective - Vital Signs / Intake & Output Vital Signs (Last 4 hours): Vital Signs Pulse Resp BP Pulse Ox 07/18/16 15:02 93 H 26 H 127/71 98 07/18/16 15:00 90 26 H 97 07/18/16 14:02 88 22 113/55 L 99 07/18/16 14:00 88 20 99 07/18/16 13:02 93 H 22 118/60 99 07/18/16 13:00 94 H 23 99 Intake and Output (Last 8hrs): Intake & Output 07/18/16 07/18/16 07/18/16 06:59 14:59 22:59 Intake Total 1399.6 1589.0 115 Output Total 260 400 50 Balance 1139.6 1189.0 65 Weight 205 lb 4.006 oz Intake: Intake, IV Amount 1164.6 1019.0 75 Right Proximal Port 1100 1000 75 Right Medial Port 64.6 19.0 0 Internal Jugular Tube Feeding 235 300 40 Albumin 50 Other 220 Output: Urine 260 400 50 Urethral (Razo) 260 400 50 Stool 0 Other: # Bowel Movements 1 - Physical Exam Head: Positive for: Atraumatic, Normocephalic Pupils: Positive for: PERRL Extroacular Muscles: Positive for: EOMI Conjunctiva: Positive for: Normal Ears: Positive for: Normal Mouth: Positive for: Moist Mucous Membranes Respiratory/Chest: Positive for: Clear to Auscultation. Negative for: Wheezes Cardiovascular: Positive for: Normal S1, S2 Abdomen: Positive for: Distention, Normal Bowel Sounds. Negative for: Peritoneal Signs Upper Extremity: Positive for: NORMAL PULSES Lower Extremity: Negative for: Edema Skin: Positive for: Warm, Dry Psychiatric: Positive for: Other (sedated at this time). Negative for: Alert - Medications Active Medications: Active Medications Generic Name Dose Route Start Last Admin Trade Name Freq PRN Reason Stop Dose Admin Acetaminophen 650 mg 07/14/16 04:18 07/15/16 09:14 Tylenol 325mg Tab PO 650 mg Q4 PRN Administration Fever >100.4 F Famotidine 20 mg 07/14/16 10:00 07/18/16 09:39 Pepcid IVP 20 mg Q12 YAMILETH Administration Heparin Sodium (Porcine) 5,000 units 07/14/16 06:00 07/18/16 13:34 Heparin SC 5,000 units Q8 YAMILETH Administration Metronidazole 100 mls @ 100 mls/hr 07/14/16 06:45 07/18/16 13:34 Flagyl IVPB 100 mls/hr Q8 YAMILETH Administration Norepinephrine Bitartrate 4 mg 254 mls @ 15.24 mls/hr 07/14/16 09:08 07/18/16 08:00 / Sodium Chloride IV 1 mcg/min .[id number] PRN Titration TITRATE PER MD ORDER Protocol 4 MCG/MIN Sodium Chloride 1,000 mls @ 75 mls/hr 07/18/16 15:30 Sodium Chloride 0.9% IV .[id number] YAMILETH Midazolam HCl 1 mg 07/16/16 21:53 07/16/16 22:30 Versed Inj IV 1 mg Q6H PRN Administration Sedation Rifaximin 550 mg 07/16/16 10:45 07/18/16 09:39 Xifaxan PO 550 mg BID YAMILETH Administration Vancomycin HCl 500 mg 07/14/16 10:00 07/18/16 13:37 Vancocin (Oral Or Rectal Use) PO 500 mg QID YAMILETH Administration Vancomycin HCl 500 mg 07/17/16 10:00 07/18/16 13:38 Vancocin (Oral Or Rectal Use) [place] 500 mg TID YAMILETH Administration - Patient Studies Lab Studies: Lab Studies 07/18/16 07/18/16 Range/Units 06:28 05:07 WBC 46.8 H* (4.8-10.8) K/uL RBC 3.99 (3.80-5.20) Mil/uL Hgb 10.9 L (11.0-16.0) g/dL Hct 33.7 L (34.0-47.0) % MCV 84.4 (81.0-99.0) fL MCH 27.4 (27.0-31.0) pg MCHC 32.4 L (33.0-37.0) g/dL RDW 15.9 H (11.5-14.5) % Plt Count 438 H (130-400) K/uL MPV 8.1 (7.2-11.7) fL Neut % (Auto) 86.5 H (50.0-75.0) % Lymph % (Auto) 5.9 L (20.0-40.0) % [place] % (Auto) 7.1 (0.0-10.0) % Eos % (Auto) 0.3 (0.0-4.0) % Baso % (Auto) 0.2 (0.0-2.0) % Neut # 40.5 H (1.8-7.0) K/uL Lymph # 2.7 (1.0-4.3) K/uL [place] # 3.3 H (0.0-0.8) K/uL Eos # 0.1 (0.0-0.7) K/uL Baso # 0.1 (0.0-0.2) K/uL Neutrophils % (Manual) 52 (50-75) % Band Neutrophils % 23 H* (0-2) % Lymphocytes % (Manual) 5 L (20-40) % Monocytes % (Manual) 6 (0-10) % Metamyelocytes % 5 H (0-0) % Myelocytes % 9 H (0-0) % Toxic Granulation Present Platelet Estimate Slightly increased H (NORMAL) Large Platelets Present Poikilocytosis (manual Slight Anisocytosis (manual) Slight Tear Drop Cells Slight Puncture Site Rr pCO2 27 L (35-45) mm/Hg pO2 123 H (80-100) mm/Hg HCO3 15.8 L (21-28) mmol/L ABG pH 7.30 L (7.35-7.45) ABG Total CO2 14.1 L (22-28) mmol/L ABG O2 Saturation 99.7 H (95-98) % ABG Base Excess -11.7 L (-2.0-3.0) mmol/L ABG Hemoglobin 10.8 L (11.7-17.4) g/dL ABG Carboxyhemoglobin 1.8 H (0.5-1.5) % POC ABG HHb (Measured) 0.3 (0.0-5.0) % ABG Methemoglobin 1.4 (0.0-3.0) % [place] Test Pos A-a O2 Difference 128.0 mm/Hg Respiratory Index 1.0 Hgb O2 Saturation 96.5 (95.0-98.0) % Mechanical Rate 14 FiO2 40.0 % Tidal Volume 500 PEEP 5 Sodium 132 (132-148) mmol/L Potassium 4.1 (3.6-5.2) mmol/L Chloride 107 (98-107) mmol/L Carbon Dioxide 13 L (22-30) mmol/L Anion Gap 16 (10-20) BUN 26 H (7-17) mg/dL Creatinine 0.7 (0.7-1.2) MG/DL Est GFR ( Amer) > 60 Est GFR (Non-Af Amer) > 60 Random Glucose 85 (65-105) mg/dL Calcium 7.2 L (8.6-10.4) mg/dl Phosphorus 3.0 (2.5-4.5) mg/dL Magnesium 2.2 (1.6-2.3) mg/dL Total Bilirubin 0.2 (0.2-1.3) mg/dL AST 38 H D (14-36) U/L ALT 16 (9-52) U/L Alkaline Phosphatase 78 (38-126) U/L Total Protein 4.4 L (6.3-8.3) g/dL Albumin 1.9 L (3.5-5.0) g/dL Globulin 2.5 (2.2-3.9) gm/dL Albumin/Globulin Ratio 0.8 L (1.0-2.1) Laboratory Results - last 24 hr 07/18/16 07/18/16 05:07 06:28 WBC 46.8 H* RBC 3.99 Hgb 10.9 L Hct 33.7 L MCV 84.4 MCH 27.4 MCHC 32.4 L RDW 15.9 H Plt Count 438 H MPV 8.1 Neut % (Auto) 86.5 H Lymph % (Auto) 5.9 L [place] % (Auto) 7.1 Eos % (Auto) 0.3 Baso % (Auto) 0.2 Neut # 40.5 H Lymph # 2.7 [place] # 3.3 H Eos # 0.1 Baso # 0.1 Neutrophils % (Manual) 52 Band Neutrophils % 23 H* Lymphocytes % (Manual) 5 L Monocytes % (Manual) 6 Metamyelocytes % 5 H Myelocytes % 9 H Toxic Granulation Present Platelet Estimate Slightly increased H Large Platelets Present Poikilocytosis (manual Slight Anisocytosis (manual) Slight Tear Drop Cells Slight Puncture Site Rr pCO2 27 L pO2 123 H HCO3 15.8 L ABG pH 7.30 L ABG Total CO2 14.1 L ABG O2 Saturation 99.7 H ABG Base Excess -11.7 L ABG Hemoglobin 10.8 L ABG Carboxyhemoglobin 1.8 H POC ABG HHb (Measured) 0.3 ABG Methemoglobin 1.4 [place] Test Pos A-a O2 Difference 128.0 Respiratory Index 1.0 Hgb O2 Saturation 96.5 Mechanical Rate 14 FiO2 40.0 Tidal Volume 500 PEEP 5 Sodium 132 Potassium 4.1 Chloride 107 Carbon Dioxide 13 L Anion Gap 16 BUN 26 H Creatinine 0.7 Est GFR ( Amer) > 60 Est GFR (Non-Af Amer) > 60 Random Glucose 85 Calcium 7.2 L Phosphorus 3.0 Magnesium 2.2 Total Bilirubin 0.2 AST 38 H D ALT 16 Alkaline Phosphatase 78 Total Protein 4.4 L Albumin 1.9 L Globulin 2.5 Albumin/Globulin Ratio 0.8 L Review of Systems - Review of Systems Systems not reviewed;Unavailable: Intubated Critical Care Progress Note - Ventilator Checklist Head of Bed 30 Degrees: Yes Daily Sedation Vacation: Yes Daily Assessment of Readiness to Wean: Yes Daily Spontaneous Breathing Trial: Yes PUD Prophalyxis: Yes DVT Prophylaxis: Yes Assessment/Plan (1) C. difficile colitis Assessment and plan: 81 year old female with a past medical history of HTN, arthritis, anxiety, seizures, back problems and gall bladder disease presents with C-diff colitis. Neuro: Alert and following commands, Versed when necessary for agitation. Pulm: Acute respiratory failure, starting pressure support trials. If patient tolerates possible extubation tomorrow. CV: Septic shock improving, titrating Levophed off, starting albumin drip. Hem: Anemia of critical illness Renal: No acute issues, urine output within normal limits. Normal saline, decreasing to 75 miles per hour. Endo: No acute issues GI: Nothing by mouth, Peptamen at 40. ID: Severe sepsis from C. difficile colitis, continue Vanco by mouth and Flagyl IV. DVT proph - heparin subcutaneous GI proph - Pepcid razo for strict I/O's during acute illness Code status - full code Crtical Care Time spent 35 minutes Multi-disciplinary rounds were performed with house staff, nursing, speech therapy, respiratory therapy, pharmacy and nutrition with integrated input from the primary team/attending and other consulting services. The documented time is cumulative and includes review of patient data/exams/labs/chart review and examination of the patient on rounds and throughout the day; time is exclusive of any procedures or teaching time. Current Visit: Yes Status: Acute
[2016-07-19 05:25] LABS: ABG ALLEN TEST POS; ARTERIAL BLOOD HGB O2 SAT 96.8 % (95.0-98.0); CARBOXYHEMOGLOBIN 1.6 % (0.5-1.5); DRAW SITE RR; HHB 0.6 % (0.0-5.0)
[2016-07-19] MEDS: metroNIDAZOLE IV 500 mg/100 ml 100 ML IVPB SCH ×3 (06:00→22:24)
[2016-07-19] MEDS: Sodium Chloride 0.9% 1,000 ML IV SCH (06:00)
[2016-07-19 06:36] LABS: BASO # 0.3 K/uL (0.0-0.2); BASO % 0.7 % (0.0-2.0); EOS # 0.3 K/uL (0.0-0.7); EOS % 0.6 % (0.0-4.0); HEMATOCRIT 36.7 % (34.0-47.0); LYMPH # 3.4 K/uL (1.0-4.3); LYMPH % 7.5 % (20.0-40.0); MEAN CELL VOLUME 85.4 fL (81.0-99.0); MEAN CORPUSCULAR HEMOGLOBIN 27.4 pg (27.0-31.0); MEAN CORPUSCULAR HGB CONC 32.1 g/dL (33.0-37.0); MEAN PLATELET VOLUME 8.7 fL (7.2-11.7); MONO # 2.8 K/uL (0.0-0.8); MONO % 6.2 % (0.0-10.0); NRBC % 0.1 % (0.0-2.0); PLATELET COUNT 460 K/uL (130-400); RED CELL DISTRIBUTION WIDTH 15.9 % (11.5-14.5)
[2016-07-19 06:47] LABS: CHLORIDE 107 mmol/L (98-107)
[2016-07-19 06:48] LABS: POTASSIUM 3.8 mmol/L (3.6-5.2); SODIUM 132 mmol/L (132-148)
[2016-07-19 06:50] LABS: ALB/GLOB RATIO 0.8 (1.0-2.1); AST/SGOT 26 U/L (14-36); BILIRUBIN,TOTAL 0.5 mg/dL (0.2-1.3); CARBON DIOXIDE 16 mmol/L (22-30); GFR AFRICAN-AMERICAN > 60; TOTAL PROTEIN 4.9 g/dL (6.3-8.3)
[2016-07-19 06:51] LABS: ALKALINE PHOSPHATASE 62 U/L (38-126); ALT/SGPT 16 U/L (9-52); BLOOD UREA NITROGEN 18 mg/dL (7-17); CALCIUM 7.5 mg/dl (8.6-10.4); GLUCOSE,RANDOM 89 mg/dL (65-105); MAGNESIUM 1.9 mg/dL (1.6-2.3); PHOSPHOROUS 3.5 mg/dL (2.5-4.5); WHITE BLOOD COUNT 44.7 K/uL (4.8-10.8)
--- NOTE | 2016-07-19 07:42 | CP.CCUPN ---
<Jaspreet Pedro - Last Filed: 07/19/16 15:26> CCU Subjective - Physician Review Subjective (Free Text): 07/15/16 17:58 Patient seen at bedside and is in no acute distress. Patient is intubated Vent settings ( FiO2 50% RR 14 PEEP 5 TV 500). Isolation precautions in place due to c. diff colitis findings. Patient cannot comply to an ROS at this time due to intubation and sedation. Family bedside and informed of management.. 07/16/16 12:11 Patient seen at beside and is in no acute distress. Patient was placed on a trial of CPAP with PS 10 and PEEP of 5. Patient tolerated CPAP well. Patient was extubated at 12pm with a follow up ABG at 1 pm. Patient remains on 8 mcg/ min of levophed. No ROS obtained at this time secondary to somnolence. 07/19/16 15:02 Pt seen and examined in no acute distress. Vitals stable. Unable to obtain ROS at initial time of evaluation because patient was still intubated. Patient CCU Objective - Vital Signs / Intake & Output Vital Signs (Last 4 hours): Vital Signs Pulse Resp BP Pulse Ox 07/19/16 06:09 98 H 26 H 142/75 95 07/19/16 06:00 101 H 28 H 93 L 07/19/16 05:03 101 H 31 H 135/69 96 07/19/16 05:00 99 H 30 H 97 07/19/16 04:02 92 H 23 120/57 L 95 07/19/16 04:00 91 H 25 H 125/55 L 95 Intake and Output (Last 8hrs): Intake & Output 07/18/16 07/19/16 07/19/16 22:59 06:59 14:59 Intake Total 1115 945 115 Output Total 475 310 40 Balance 640 635 75 Weight 205 lb 0.478 oz Intake: Intake, IV Amount 625 625 75 Right Proximal Port 625 625 75 Right Medial Port 0 Internal Jugular Tube Feeding 320 320 40 Albumin 50 Other 120 Output: Urine 475 310 40 Urethral (Kowalski) 475 310 40 Other: # Bowel Movements 1 - Physical Exam Head: Positive for: Atraumatic, Normocephalic Pupils: Positive for: PERRL Extroacular Muscles: Positive for: EOMI Conjunctiva: Positive for: Normal Ears: Positive for: Normal Mouth: Positive for: Moist Mucous Membranes Respiratory/Chest: Positive for: Clear to Auscultation. Negative for: Wheezes Cardiovascular: Positive for: Normal S1, S2 Abdomen: Positive for: Distention, Normal Bowel Sounds. Negative for: Peritoneal Signs Upper Extremity: Positive for: NORMAL PULSES Lower Extremity: Negative for: Edema Skin: Positive for: Warm, Dry Psychiatric: Positive for: Other (sedated at this time). Negative for: Alert - Medications Active Medications: Active Medications Generic Name Dose Route Start Last Admin Trade Name Freq PRN Reason Stop Dose Admin Acetaminophen 650 mg 07/14/16 04:18 07/15/16 09:14 Tylenol 325mg Tab PO 650 mg Q4 PRN Administration Fever >100.4 F Famotidine 20 mg 07/14/16 10:00 07/18/16 22:00 Pepcid IVP 20 mg Q12 YAMILETH Administration Heparin Sodium (Porcine) 5,000 units 07/18/16 22:00 07/18/16 22:00 Heparin SC 5,000 units Q12 YAMILETH Administration Metronidazole 100 mls @ 100 mls/hr 07/14/16 06:45 07/19/16 06:00 Flagyl IVPB 100 mls/hr Q8 YAMILETH Administration Norepinephrine Bitartrate 4 mg 254 mls @ 15.24 mls/hr 07/14/16 09:08 07/18/16 11:00 / Sodium Chloride IV 0 mcg/min .[id number] PRN Titration TITRATE PER MD ORDER Protocol 4 MCG/MIN Sodium Chloride 1,000 mls @ 75 mls/hr 07/18/16 15:30 07/19/16 06:00 Sodium Chloride 0.9% IV 75 mls/hr .[id number] YAMILETH Administration Midazolam HCl 1 mg 07/16/16 21:53 07/16/16 22:30 Versed Inj IV 1 mg Q6H PRN Administration Sedation Rifaximin 550 mg 07/16/16 10:45 07/18/16 17:39 Xifaxan PO 550 mg BID YAMILETH Administration Vancomycin HCl 500 mg 07/14/16 10:00 07/18/16 22:00 Vancocin (Oral Or Rectal Use) PO 500 mg QID YAMILETH Administration Vancomycin HCl 500 mg 07/17/16 10:00 07/18/16 17:41 Vancocin (Oral Or Rectal Use) [place] 500 mg TID YAMILETH Administration - Patient Studies Lab Studies: Lab Studies 07/19/16 07/19/16 07/18/16 Range/Units 06:21 05:11 06:28 WBC 44.7 H* (4.8-10.8) K/uL RBC 4.30 (3.80-5.20) Mil/uL Hgb 11.8 (11.0-16.0) g/dL Hct 36.7 (34.0-47.0) % MCV 85.4 (81.0-99.0) fL MCH 27.4 (27.0-31.0) pg MCHC 32.1 L (33.0-37.0) g/dL RDW 15.9 H (11.5-14.5) % Plt Count 460 H (130-400) K/uL MPV 8.7 (7.2-11.7) fL Neut % (Auto) 85.0 H (50.0-75.0) % Lymph % (Auto) 7.5 L (20.0-40.0) % [place] % (Auto) 6.2 (0.0-10.0) % Eos % (Auto) 0.6 (0.0-4.0) % Baso % (Auto) 0.7 (0.0-2.0) % Neut # 38.0 H (1.8-7.0) K/uL Lymph # 3.4 (1.0-4.3) K/uL [place] # 2.8 H (0.0-0.8) K/uL Eos # 0.3 (0.0-0.7) K/uL Baso # 0.3 H (0.0-0.2) K/uL Neutrophils % (Manual) 52 (50-75) % Band Neutrophils % 23 H* (0-2) % Lymphocytes % (Manual) 5 L (20-40) % Monocytes % (Manual) 6 (0-10) % Metamyelocytes % 5 H (0-0) % Myelocytes % 9 H (0-0) % Toxic Granulation Present Platelet Estimate Slightly increased H (NORMAL) Large Platelets Present Poikilocytosis (manual Slight Anisocytosis (manual) Slight Tear Drop Cells Slight Puncture Site Rr pCO2 31 L (35-45) mm/Hg pO2 105 H (80-100) mm/Hg HCO3 16.3 L (21-28) mmol/L ABG pH 7.28 L (7.35-7.45) ABG Total CO2 15.6 L (22-28) mmol/L ABG O2 Saturation 99.4 H (95-98) % ABG Base Excess -11.0 L (-2.0-3.0) mmol/L ABG Hemoglobin 11.4 L (11.7-17.4) g/dL ABG Carboxyhemoglobin 1.6 H (0.5-1.5) % POC ABG HHb (Measured) 0.6 (0.0-5.0) % ABG Methemoglobin 1.0 (0.0-3.0) % Wesley Test Pos A-a O2 Difference 141.0 mm/Hg Respiratory Index 1.3 Hgb O2 Saturation 96.8 (95.0-98.0) % FiO2 40.0 % Pressure Support 10 CPAP 5 Sodium 132 (132-148) mmol/L Potassium 3.8 (3.6-5.2) mmol/L Chloride 107 (98-107) mmol/L Carbon Dioxide 16 L (22-30) mmol/L Anion Gap 13 (10-20) BUN 18 H (7-17) mg/dL Creatinine 0.6 L (0.7-1.2) MG/DL Est GFR ( Amer) > 60 Est GFR (Non-Af Amer) > 60 Random Glucose 89 (65-105) mg/dL Calcium 7.5 L (8.6-10.4) mg/dl Phosphorus 3.5 (2.5-4.5) mg/dL Magnesium 1.9 (1.6-2.3) mg/dL Total Bilirubin 0.5 (0.2-1.3) mg/dL AST 26 (14-36) U/L ALT 16 (9-52) U/L Alkaline Phosphatase 62 (38-126) U/L Total Protein 4.9 L (6.3-8.3) g/dL Albumin 2.2 L (3.5-5.0) g/dL Globulin 2.7 (2.2-3.9) gm/dL Albumin/Globulin Ratio 0.8 L (1.0-2.1) Laboratory Results - last 24 hr 07/18/16 07/19/16 07/19/16 06:28 05:11 06:21 WBC 44.7 H* RBC 4.30 Hgb 11.8 Hct 36.7 MCV 85.4 MCH 27.4 MCHC 32.1 L RDW 15.9 H Plt Count 460 H MPV 8.7 Neut % (Auto) 85.0 H Lymph % (Auto) 7.5 L [place] % (Auto) 6.2 Eos % (Auto) 0.6 Baso % (Auto) 0.7 Neut # 38.0 H Lymph # 3.4 [place] # 2.8 H Eos # 0.3 Baso # 0.3 H Neutrophils % (Manual) 52 Band Neutrophils % 23 H* Lymphocytes % (Manual) 5 L Monocytes % (Manual) 6 Metamyelocytes % 5 H Myelocytes % 9 H Toxic Granulation Present Platelet Estimate Slightly increased H Large Platelets Present Poikilocytosis (manual Slight Anisocytosis (manual) Slight Tear Drop Cells Slight Puncture Site Rr pCO2 31 L pO2 105 H HCO3 16.3 L ABG pH 7.28 L ABG Total CO2 15.6 L ABG O2 Saturation 99.4 H ABG Base Excess -11.0 L ABG Hemoglobin 11.4 L ABG Carboxyhemoglobin 1.6 H POC ABG HHb (Measured) 0.6 ABG Methemoglobin 1.0 [place] Test Pos A-a O2 Difference 141.0 Respiratory Index 1.3 Hgb O2 Saturation 96.8 FiO2 40.0 Pressure Support 10 CPAP 5 Sodium 132 Potassium 3.8 Chloride 107 Carbon Dioxide 16 L Anion Gap 13 BUN 18 H Creatinine 0.6 L Est GFR ( Amer) > 60 Est GFR (Non-Af Amer) > 60 Random Glucose 89 Calcium 7.5 L Phosphorus 3.5 Magnesium 1.9 Total Bilirubin 0.5 AST 26 ALT 16 Alkaline Phosphatase 62 Total Protein 4.9 L Albumin 2.2 L Globulin 2.7 Albumin/Globulin Ratio 0.8 L <Sangeetha Hightower - Last Filed: 07/19/16 15:35> CCU Subjective - Physician Review Events Since Last Encounter (Free Text): 07/19/16 15:34 Patient today doing well. She got extubated today. Postextubation patient is doing well. She has no chest pain or abdominal pain. Still receiving vancomycin edema. Vital signs stable chest good air entry regular heart sound nontender abdomen edema noted Labs reviewed Still WBC elevated. Chest x-rays nonspecific Assessment and a condition: 81-year-old female with a history of C. difficile colitis, respiratory failure fever sepsis. Currently doing well. We will continue the current treatment. Possible transferred to telemetry if needed CCU Objective - Vital Signs / Intake & Output Vital Signs (Last 4 hours): Vital Signs Temp Pulse Resp BP Pulse Ox 07/19/16 14:00 87 24 100 07/19/16 13:39 88 23 127/67 98 07/19/16 12:09 87 24 137/67 100 07/19/16 12:00 98.4 F Intake and Output (Last 8hrs): Intake & Output 07/19/16 07/19/16 07/19/16 06:59 14:59 22:59 Intake Total 945 1160 75 Output Total 310 420 50 Balance 635 740 25 Weight 205 lb 0.478 oz Intake: Intake, IV Amount 625 1000 75 Right Distal Port 200 Internal Jugular Right Proximal Port 625 600 75 Right Medial Port 200 Internal Jugular Tube Feeding 320 160 0 Output: Urine 310 420 50 Urethral (Kowalski) 310 420 50 - Medications Active Medications: Active Medications Generic Name Dose Route Start Last Admin Trade Name Freq PRN Reason Stop Dose Admin Acetaminophen 650 mg 07/14/16 04:18 07/15/16 09:14 Tylenol 325mg Tab PO 650 mg Q4 PRN Administration Fever >100.4 F Famotidine 20 mg 07/14/16 10:00 07/19/16 09:05 Pepcid IVP 20 mg Q12 YAMILETH Administration Heparin Sodium (Porcine) 5,000 units 07/18/16 22:00 07/19/16 09:05 Heparin SC 5,000 units Q12 YAMILETH Administration Metronidazole 100 mls @ 100 mls/hr 07/14/16 06:45 07/19/16 14:18 Flagyl IVPB 100 mls/hr Q8 YAMILETH Administration Sodium Bicarbonate 100 meq/ 1,000 mls @ 75 mls/hr 07/19/16 09:00 07/19/16 08:53 Sodium Chloride IV 75 mls/hr .[id number] YAMILEHT Administration Midazolam HCl 1 mg 07/16/16 21:53 07/16/16 22:30 Versed Inj IV 1 mg Q6H PRN Administration Sedation Rifaximin 550 mg 07/16/16 10:45 07/19/16 09:07 Xifaxan PO 550 mg BID YAMILETH Administration Vancomycin HCl 500 mg 07/14/16 10:00 07/19/16 14:18 Vancocin (Oral Or Rectal Use) PO Not Given QID [facility] Vancomycin HCl 500 mg 07/17/16 10:00 07/19/16 14:18 Vancocin (Oral Or Rectal Use) [place] 500 mg TID YAMILETH Administration - Patient Studies Lab Studies: Lab Studies 07/19/16 07/19/16 Range/Units 06:21 05:11 WBC 44.7 H* (4.8-10.8) K/uL RBC 4.30 (3.80-5.20) Mil/uL Hgb 11.8 (11.0-16.0) g/dL Hct 36.7 (34.0-47.0) % MCV 85.4 (81.0-99.0) fL MCH 27.4 (27.0-31.0) pg MCHC 32.1 L (33.0-37.0) g/dL RDW 15.9 H (11.5-14.5) % Plt Count 460 H (130-400) K/uL MPV 8.7 (7.2-11.7) fL Neut % (Auto) 85.0 H (50.0-75.0) % Lymph % (Auto) 7.5 L (20.0-40.0) % [place] % (Auto) 6.2 (0.0-10.0) % Eos % (Auto) 0.6 (0.0-4.0) % Baso % (Auto) 0.7 (0.0-2.0) % Neut # 38.0 H (1.8-7.0) K/uL Lymph # 3.4 (1.0-4.3) K/uL [place] # 2.8 H (0.0-0.8) K/uL Eos # 0.3 (0.0-0.7) K/uL Baso # 0.3 H (0.0-0.2) K/uL Neutrophils % (Manual) 62 (50-75) % Band Neutrophils % 18 H* (0-2) % Lymphocytes % (Manual) 6 L (20-40) % Monocytes % (Manual) 7 (0-10) % Metamyelocytes % 5 H (0-0) % Myelocytes % 2 H (0-0) % Platelet Estimate Slightly increased H (NORMAL) Anisocytosis (manual) Slight Puncture Site Rr pCO2 31 L (35-45) mm/Hg pO2 105 H (80-100) mm/Hg HCO3 16.3 L (21-28) mmol/L ABG pH 7.28 L (7.35-7.45) ABG Total CO2 15.6 L (22-28) mmol/L ABG O2 Saturation 99.4 H (95-98) % ABG Base Excess -11.0 L (-2.0-3.0) mmol/L ABG Hemoglobin 11.4 L (11.7-17.4) g/dL ABG Carboxyhemoglobin 1.6 H (0.5-1.5) % POC ABG HHb (Measured) 0.6 (0.0-5.0) % ABG Methemoglobin 1.0 (0.0-3.0) % [place] Test Pos A-a O2 Difference 141.0 mm/Hg Respiratory Index 1.3 Hgb O2 Saturation 96.8 (95.0-98.0) % FiO2 40.0 % Pressure Support 10 CPAP 5 Sodium 132 (132-148) mmol/L Potassium 3.8 (3.6-5.2) mmol/L Chloride 107 (98-107) mmol/L Carbon Dioxide 16 L (22-30) mmol/L Anion Gap 13 (10-20) BUN 18 H (7-17) mg/dL Creatinine 0.6 L (0.7-1.2) MG/DL Est GFR ( Amer) > 60 Est GFR (Non-Af Amer) > 60 Random Glucose 89 (65-105) mg/dL Calcium 7.5 L (8.6-10.4) mg/dl Phosphorus 3.5 (2.5-4.5) mg/dL Magnesium 1.9 (1.6-2.3) mg/dL Total Bilirubin 0.5 (0.2-1.3) mg/dL AST 26 (14-36) U/L ALT 16 (9-52) U/L Alkaline Phosphatase 62 (38-126) U/L Total Protein 4.9 L (6.3-8.3) g/dL Albumin 2.2 L (3.5-5.0) g/dL Globulin 2.7 (2.2-3.9) gm/dL Albumin/Globulin Ratio 0.8 L (1.0-2.1) Laboratory Results - last 24 hr 07/19/16 07/19/16 05:11 06:21 WBC 44.7 H* RBC 4.30 Hgb 11.8 Hct 36.7 MCV 85.4 MCH 27.4 MCHC 32.1 L RDW 15.9 H Plt Count 460 H MPV 8.7 Neut % (Auto) 85.0 H Lymph % (Auto) 7.5 L [place] % (Auto) 6.2 Eos % (Auto) 0.6 Baso % (Auto) 0.7 Neut # 38.0 H Lymph # 3.4 [place] # 2.8 H Eos # 0.3 Baso # 0.3 H Neutrophils % (Manual) 62 Band Neutrophils % 18 H* Lymphocytes % (Manual) 6 L Monocytes % (Manual) 7 Metamyelocytes % 5 H Myelocytes % 2 H Platelet Estimate Slightly increased H Anisocytosis (manual) Slight Puncture Site Rr pCO2 31 L pO2 105 H HCO3 16.3 L ABG pH 7.28 L ABG Total CO2 15.6 L ABG O2 Saturation 99.4 H ABG Base Excess -11.0 L ABG Hemoglobin 11.4 L ABG Carboxyhemoglobin 1.6 H POC ABG HHb (Measured) 0.6 ABG Methemoglobin 1.0 [place] Test Pos A-a O2 Difference 141.0 Respiratory Index 1.3 Hgb O2 Saturation 96.8 FiO2 40.0 Pressure Support 10 CPAP 5 Sodium 132 Potassium 3.8 Chloride 107 Carbon Dioxide 16 L Anion Gap 13 BUN 18 H Creatinine 0.6 L Est GFR ( Amer) > 60 Est GFR (Non-Af Amer) > 60 Random Glucose 89 Calcium 7.5 L Phosphorus 3.5 Magnesium 1.9 Total Bilirubin 0.5 AST 26 ALT 16 Alkaline Phosphatase 62 Total Protein 4.9 L Albumin 2.2 L Globulin 2.7 Albumin/Globulin Ratio 0.8 L
[2016-07-19] MEDS ORDERED: Potassium Chloride 20 mEq 100 ML IVPB ONE (08:30)
[2016-07-19] MEDS ORDERED: Sodium Bicarbonate 8.4% 100 MEQ in Sodium Chloride 0.45% 900 ML IV SCH ×3 (09:00→23:00)
[2016-07-19] MEDS: Vancomycin 125 MG/5 ML SOLN (ORAL/RECTAL) PO SCH ×4 (09:05→22:22)
[2016-07-19] MEDS: Vancomycin 125 MG/5 ML SOLN (ORAL/RECTAL) PR SCH ×3 (09:36→18:23)
[2016-07-19 10:16] LABS: METAMYELOCYTE 5 % (0-0); MYELOCYTE 2 % (0-0); NEUTROPHIL 62 % (50-75); TOTAL CELLS COUNTED 100
--- NOTE | 2016-07-19 15:58 | CP.PCM.PN ---
Subjective - Date & Time of Evaluation Date of Evaluation: 07/19/16 Time of Evaluation: 15:56 - Subjective Subjective: CC: Follow up C Diff Colitis Loose BMs after Vanco enemas administered. Denies abdominal pain. Extubated, in good spirits Objective - Vital Signs/Intake and Output Vital Signs (last 24 hours): Temp Pulse Resp BP Pulse Ox 98.4 F 87 24 127/67 100 07/19/16 12:00 07/19/16 14:00 07/19/16 14:00 07/19/16 13:39 07/19/16 14:00 Intake and Output: 07/19/16 07/19/16 06:59 18:59 Intake Total 1430 1235 Output Total 510 470 Balance 920 765 - Medications Medications: Current Medications Acetaminophen (Tylenol 325mg Tab) 650 mg PO Q4 PRN PRN Reason: Fever >100.4 F Last Admin: 07/15/16 09:14 Dose: 650 mg Famotidine (Pepcid) 20 mg IVP Q12 [facility] Last Admin: 07/19/16 09:05 Dose: 20 mg Heparin Sodium (Porcine) (Heparin) 5,000 units SC Q12 [facility] Last Admin: 07/19/16 09:05 Dose: 5,000 units Metronidazole (Flagyl) 100 mls @ 100 mls/hr IVPB Q8 [facility] Last Admin: 07/19/16 14:18 Dose: 100 mls/hr Sodium Bicarbonate 100 meq/ (Sodium Chloride) 1,000 mls @ 75 mls/hr IV .[id number] [facility] Stop: 07/19/16 22:19 Rifaximin (Xifaxan) 550 mg PO BID [facility] Last Admin: 07/19/16 09:07 Dose: 550 mg Vancomycin HCl (Vancocin (Oral Or Rectal Use)) 500 mg PO QID [facility] Last Admin: 07/19/16 14:18 Dose: Not Given Vancomycin HCl (Vancocin (Oral Or Rectal Use)) 500 mg [place] TID [facility] Last Admin: 07/19/16 14:18 Dose: 500 mg - Labs Labs: 07/19/16 06:21 07/19/16 06:21 PT 14.8 SECONDS (9.7-12.2) H 07/14/16 01:01 INR 1.3 07/14/16 01:01 APTT 37 SECONDS (21-34) H 07/14/16 01:01 - Constitutional Appears: Chronically Ill - Head Exam Head Exam: NORMOCEPHALIC - Eye Exam Eye Exam: absent: Scleral icterus - Respiratory Exam Respiratory Exam: NORMAL BREATHING PATTERN - Cardiovascular Exam Cardiovascular Exam: REGULAR RHYTHM - GI/Abdominal Exam GI & Abdominal Exam: Distended, Soft, Hyperactive Bowel Sounds. absent: Guarding, Tenderness, Rebound Assessment and Plan (1) Acute respiratory failure Assessment & Plan: Extubated Status: Acute (2) Sepsis Assessment & Plan: Improving Status: Acute (3) GERD (gastroesophageal reflux disease) Assessment & Plan: Stable Status: Suspected (4) C. difficile colitis Assessment & Plan: Severe. Improving on PO Vanco, rectal Vanco, IV Flagyl. Would hold off transplant for now. Status: Acute
--- NOTE | 2016-07-19 16:33 | RAD ---
PROCEDURE: CHEST RADIOGRAPH, 1 VIEW HISTORY: intubated COMPARISON: None available. FINDINGS: LUNGS: In situ ETT, tip of which lies approximately with 5 cm above nuris. Right IJ central venous line with tip in the SVC unchanged. In situ NGT, the distal aspect of which is poorly seen. . Bibasilar atelectasis and or infiltrates and small bilateral effusions felt present left larger than right. PLEURA: As above. No apparent pneumothorax CARDIOVASCULAR: Normal. OSSEOUS STRUCTURES: No significant abnormalities. VISUALIZED UPPER ABDOMEN: Eggshell calcification left upper quadrant the abdomen unchanged OTHER FINDINGS: None. IMPRESSION: Support lines and tubes as above. Mild bibasilar atelectasis and small effusions felt to be present left larger than right
--- NOTE | 2016-07-19 16:51 | RAD ---
HISTORY: colitis COMPARISON: Comparison made with prior CT scan of the abdomen and pelvis dated 07/14/2016. FINDINGS: BOWEL: The current study demonstrates distended air-filled loops of bowel in the right lower quadrant and left upper abdomen likely representing distended cecum and distal distal transverse and descending colon consistent with this patient's history of colitis best visualized on prior CT scan. Note that this supine view is limited to assess for free intraperitoneal air BONES: Again seen is a right-sided total hip replacement. OTHER FINDINGS: Again noted is a large rounded eggshell like calcification left upper quadrant of the abdomen. IMPRESSION: Distended air-filled loops of colon as above consistent with this patient's history of colitis as above. Note that the supine view is limited to assess for free intraperitoneal air
--- NOTE | 2016-07-19 18:50 | CP.PCM.PN ---
Subjective - Date & Time of Evaluation Date of Evaluation: 07/19/16 Time of Evaluation: 18:43 - Subjective Subjective: INFECTIOUS DISEASE ICU PROGRESS NOTE Candis VERA MD, FACP ICU/CCU #6 07/19/2016 CHART REVIEWED PT EXAMINED CASE DISCUSSED PT EXTUBATED MORE AWAKE AND ALERT C. DIFF NOTED STILL REPEAT LABS WATCH CBC AND CMP Objective - Vital Signs/Intake and Output Vital Signs (last 24 hours): Temp Pulse Resp BP Pulse Ox 98.4 F 96 H 27 H 146/74 98 07/19/16 16:00 07/19/16 18:09 07/19/16 18:09 07/19/16 18:09 07/19/16 18:09 Intake and Output: 07/19/16 07/19/16 06:59 18:59 Intake Total 1430 1760 Output Total 510 650 Balance 920 1110 - Medications Medications: Current Medications Acetaminophen (Tylenol 325mg Tab) 650 mg PO Q4 PRN PRN Reason: Fever >100.4 F Last Admin: 07/15/16 09:14 Dose: 650 mg Famotidine (Pepcid) 20 mg IVP Q12 [facility] Last Admin: 07/19/16 09:05 Dose: 20 mg Heparin Sodium (Porcine) (Heparin) 5,000 units SC Q12 [facility] Last Admin: 07/19/16 09:05 Dose: 5,000 units Metronidazole (Flagyl) 100 mls @ 100 mls/hr IVPB Q8 [facility] Last Admin: 07/19/16 14:18 Dose: 100 mls/hr Sodium Bicarbonate 100 meq/ (Sodium Chloride) 1,000 mls @ 75 mls/hr IV .[id number] [facility] Stop: 07/19/16 22:19 Last Admin: 07/19/16 16:06 Dose: Not Given Rifaximin (Xifaxan) 550 mg PO BID [facility] Last Admin: 07/19/16 18:23 Dose: 550 mg Vancomycin HCl (Vancocin (Oral Or Rectal Use)) 500 mg PO QID [facility] Last Admin: 07/19/16 18:24 Dose: 500 mg Vancomycin HCl (Vancocin (Oral Or Rectal Use)) 500 mg IN TID [facility] Last Admin: 07/19/16 18:23 Dose: 500 mg - Labs Labs: 07/19/16 06:21 07/19/16 06:21 PT 14.8 SECONDS (9.7-12.2) H 07/14/16 01:01 INR 1.3 07/14/16 01:01 APTT 37 SECONDS (21-34) H 07/14/16 01:01 - Constitutional Appears: Non-toxic, Older Than Stated Age, Chronically Ill - Head Exam Head Exam: ATRAUMATIC - Eye Exam Eye Exam: Normal appearance - ENT Exam ENT Exam: Mucous Membranes Moist - Neck Exam Neck Exam: Normal Inspection - Respiratory Exam Respiratory Exam: Decreased Breath Sounds, Clear to Ausculation Bilateral, NORMAL BREATHING PATTERN - Cardiovascular Exam Cardiovascular Exam: REGULAR RHYTHM - GI/Abdominal Exam GI & Abdominal Exam: Soft, Tenderness, Diminished Bowel Sounds, Hypoactive Bowel Sounds. absent: Organomegaly, Rebound - Rectal Exam Rectal Exam: Deferred Assessment and Plan (1) C. difficile colitis Status: Acute (2) Acute respiratory failure Status: Acute (3) Hyponatremia Status: Resolved (4) GERD (gastroesophageal reflux disease) Status: Suspected (5) Knee injury Status: Chronic (6) Sepsis Status: Acute (7) Bladder incontinence Status: Chronic (8) Abdominal pain Status: Acute (9) Seizure disorder Status: Chronic
[2016-07-20] MEDS ORDERED: guaiFENesin DM 200 mg-20 mg/10 ml UD PO STA (02:29)
[2016-07-20] MEDS: metroNIDAZOLE IV 500 mg/100 ml 100 ML IVPB SCH ×3 (06:02→21:32)
[2016-07-20 06:38] LABS: BASO # 0.2 K/uL (0.0-0.2); BASO % 0.4 % (0.0-2.0); EOS # 0.2 K/uL (0.0-0.7); EOS % 0.4 % (0.0-4.0); HEMATOCRIT 36.8 % (34.0-47.0); LYMPH # 3.9 K/uL (1.0-4.3); LYMPH % 8.9 % (20.0-40.0); MEAN CELL VOLUME 84.2 fL (81.0-99.0); MEAN CORPUSCULAR HEMOGLOBIN 27.1 pg (27.0-31.0); MEAN CORPUSCULAR HGB CONC 32.2 g/dL (33.0-37.0); MEAN PLATELET VOLUME 8.2 fL (7.2-11.7); MONO # 4.2 K/uL (0.0-0.8); MONO % 9.6 % (0.0-10.0); NRBC % 0.1 % (0.0-2.0); PLATELET COUNT 532 K/uL (130-400); RED CELL DISTRIBUTION WIDTH 15.8 % (11.5-14.5)
[2016-07-20 06:45] LABS: CHLORIDE 102 mmol/L (98-107); POTASSIUM 3.5 mmol/L (3.6-5.2); SODIUM 133 mmol/L (132-148)
[2016-07-20 06:47] LABS: ALB/GLOB RATIO 0.8 (1.0-2.1); AST/SGOT 45 U/L (14-36); BILIRUBIN,TOTAL 0.5 mg/dL (0.2-1.3); CARBON DIOXIDE 21 mmol/L (22-30); GFR AFRICAN-AMERICAN > 60; TOTAL PROTEIN 4.6 g/dL (6.3-8.3)
[2016-07-20 06:48] LABS: ALKALINE PHOSPHATASE 57 U/L (38-126); ALT/SGPT 27 U/L (9-52); BLOOD UREA NITROGEN 13 mg/dL (7-17); CALCIUM 7.4 mg/dl (8.6-10.4); GLUCOSE,RANDOM 85 mg/dL (65-105); MAGNESIUM 1.7 mg/dL (1.6-2.3); PHOSPHOROUS 3.8 mg/dL (2.5-4.5)
[2016-07-20 07:03] LABS: WHITE BLOOD COUNT 43.5 K/uL (4.8-10.8)
[2016-07-20] MEDS ORDERED: Potassium Chloride 20 mEq/15 ml LIQ UD PO ONE (08:15)
--- NOTE | 2016-07-20 08:32 | CP.CCUPN ---
CCU Subjective - Physician Review Subjective (Free Text): 07/15/16 17:58 Patient seen at bedside and is in no acute distress. Patient is intubated Vent settings ( FiO2 50% RR 14 PEEP 5 TV 500). Isolation precautions in place due to c. diff colitis findings. Patient cannot comply to an ROS at this time due to intubation and sedation. Family bedside and informed of management.. 07/16/16 12:11 Patient seen at beside and is in no acute distress. Patient was placed on a trial of CPAP with PS 10 and PEEP of 5. Patient tolerated CPAP well. Patient was extubated at 12pm with a follow up ABG at 1 pm. Patient remains on 8 mcg/ min of levophed. No ROS obtained at this time secondary to somnolence. 07/19/16 15:02 Pt seen and examined in no acute distress. Vitals stable. Unable to obtain ROS at initial time of evaluation because patient was still intubated. Patient 07/20/16 14:22 Patient seen and examined in no acute distress. Patient was extubated yesterday and on 3 L nc cannula satting well. Nursing reports no acute events overnight. Patient OOB to chair and responding well to questions. Patient still has diarrhea, which has been worse since after enema. Patient denies subjective fevers or chills, nausea, vomiting, constipation, paresthesias or headaches at this time. CCU Objective - Vital Signs / Intake & Output Vital Signs (Last 4 hours): Vital Signs Pulse Resp BP Pulse Ox 07/20/16 07:21 148/84 07/20/16 07:00 102 H 22 95 07/20/16 05:00 98 H 20 85 L 07/20/16 04:51 95 H 15 96 07/20/16 04:39 95 H 17 153/74 H 100 Intake and Output (Last 8hrs): Intake & Output 07/19/16 07/20/16 07/20/16 22:59 06:59 14:59 Intake Total 1360 1050 75 Output Total 385 310 40 Balance 975 740 35 Weight 200 lb 9.93 oz Intake: Intake, IV Amount 700 700 75 Right Distal Port 100 100 Internal Jugular Right Proximal Port 600 600 75 Oral 360 350 0 Tube Feeding 300 Output: Urine 385 310 40 Urethral (Kowalski) 385 310 40 Other: # Bowel Movements 1 1 - Physical Exam Head: Positive for: Atraumatic, Normocephalic Pupils: Positive for: PERRL Extroacular Muscles: Positive for: EOMI Conjunctiva: Positive for: Normal Ears: Positive for: Normal Mouth: Positive for: Moist Mucous Membranes Respiratory/Chest: Positive for: Clear to Auscultation. Negative for: Wheezes Cardiovascular: Positive for: Regular Rate and Rhythm, Normal S1, S2 Abdomen: Positive for: Normal Bowel Sounds. Negative for: Tenderness, Peritoneal Signs Upper Extremity: Positive for: NORMAL PULSES Lower Extremity: Negative for: Edema Skin: Positive for: Warm, Dry Psychiatric: Positive for: Oriented x 3, Normal Insight, Normal Concentration. Negative for: Alert - Medications Active Medications: Active Medications Generic Name Dose Route Start Last Admin Trade Name Freq PRN Reason Stop Dose Admin Acetaminophen 650 mg 07/14/16 04:18 07/15/16 09:14 Tylenol 325mg Tab PO 650 mg Q4 PRN Administration Fever >100.4 F Famotidine 20 mg 07/14/16 10:00 07/19/16 22:21 Pepcid IVP 20 mg Q12 [facility] Administration Heparin Sodium (Porcine) 5,000 units 07/18/16 22:00 07/19/16 22:21 Heparin SC 5,000 units Q12 [facility] Administration Metronidazole 100 mls @ 100 mls/hr 07/14/16 06:45 07/20/16 06:02 Flagyl IVPB 100 mls/hr Q8 [facility] Administration Sodium Bicarbonate 100 meq/ 1,000 mls @ 75 mls/hr 07/19/16 23:00 07/19/16 23:19 Sodium Chloride IV 07/20/16 13:39 75 mls/hr .[id number] [facility] Administration Rifaximin 550 mg 07/16/16 10:45 07/19/16 18:23 Xifaxan PO 550 mg BID [facility] Administration Vancomycin HCl 500 mg 07/14/16 10:00 07/19/16 22:22 Vancocin (Oral Or Rectal Use) PO 500 mg QID [facility] Administration Vancomycin HCl 500 mg 07/17/16 10:00 07/19/16 18:23 Vancocin (Oral Or Rectal Use) MA 500 mg TID [facility] Administration - Patient Studies Lab Studies: Lab Studies 07/20/16 07/19/16 Range/Units 06:30 06:21 WBC 43.5 H* (4.8-10.8) K/uL RBC 4.37 (3.80-5.20) Mil/uL Hgb 11.8 (11.0-16.0) g/dL Hct 36.8 (34.0-47.0) % MCV 84.2 (81.0-99.0) fL MCH 27.1 (27.0-31.0) pg MCHC 32.2 L (33.0-37.0) g/dL RDW 15.8 H (11.5-14.5) % Plt Count 532 H (130-400) K/uL MPV 8.2 (7.2-11.7) fL Neut % (Auto) 80.7 H (50.0-75.0) % Lymph % (Auto) 8.9 L (20.0-40.0) % Lyon % (Auto) 9.6 (0.0-10.0) % Eos % (Auto) 0.4 (0.0-4.0) % Baso % (Auto) 0.4 (0.0-2.0) % Neut # 35.1 H (1.8-7.0) K/uL Lymph # 3.9 (1.0-4.3) K/uL Lyon # 4.2 H (0.0-0.8) K/uL Eos # 0.2 (0.0-0.7) K/uL Baso # 0.2 (0.0-0.2) K/uL Neutrophils % (Manual) 62 (50-75) % Band Neutrophils % 18 H* (0-2) % Lymphocytes % (Manual) 6 L (20-40) % Monocytes % (Manual) 7 (0-10) % Metamyelocytes % 5 H (0-0) % Myelocytes % 2 H (0-0) % Platelet Estimate Slightly increased H (NORMAL) Anisocytosis (manual) Slight Sodium 133 (132-148) mmol/L Potassium 3.5 L (3.6-5.2) mmol/L Chloride 102 (98-107) mmol/L Carbon Dioxide 21 L (22-30) mmol/L Anion Gap 14 (10-20) BUN 13 (7-17) mg/dL Creatinine 0.5 L (0.7-1.2) MG/DL Est GFR ( Amer) > 60 Est GFR (Non-Af Amer) > 60 Random Glucose 85 (65-105) mg/dL Calcium 7.4 L (8.6-10.4) mg/dl Phosphorus 3.8 (2.5-4.5) mg/dL Magnesium 1.7 (1.6-2.3) mg/dL Total Bilirubin 0.5 (0.2-1.3) mg/dL AST 45 H D (14-36) U/L ALT 27 (9-52) U/L Alkaline Phosphatase 57 (38-126) U/L Total Protein 4.6 L (6.3-8.3) g/dL Albumin 2.0 L (3.5-5.0) g/dL Globulin 2.5 (2.2-3.9) gm/dL Albumin/Globulin Ratio 0.8 L (1.0-2.1) Laboratory Results - last 24 hr 07/19/16 07/20/16 06:21 06:30 WBC 43.5 H* RBC 4.37 Hgb 11.8 Hct 36.8 MCV 84.2 MCH 27.1 MCHC 32.2 L RDW 15.8 H Plt Count 532 H MPV 8.2 Neut % (Auto) 80.7 H Lymph % (Auto) 8.9 L Lyon % (Auto) 9.6 Eos % (Auto) 0.4 Baso % (Auto) 0.4 Neut # 35.1 H Lymph # 3.9 Lyon # 4.2 H Eos # 0.2 Baso # 0.2 Neutrophils % (Manual) 62 Band Neutrophils % 18 H* Lymphocytes % (Manual) 6 L Monocytes % (Manual) 7 Metamyelocytes % 5 H Myelocytes % 2 H Platelet Estimate Slightly increased H Anisocytosis (manual) Slight Sodium 133 Potassium 3.5 L Chloride 102 Carbon Dioxide 21 L Anion Gap 14 BUN 13 Creatinine 0.5 L Est GFR ( Amer) > 60 Est GFR (Non-Af Amer) > 60 Random Glucose 85 Calcium 7.4 L Phosphorus 3.8 Magnesium 1.7 Total Bilirubin 0.5 AST 45 H D ALT 27 Alkaline Phosphatase 57 Total Protein 4.6 L Albumin 2.0 L Globulin 2.5 Albumin/Globulin Ratio 0.8 L Review of Systems - Review of Systems Review of Systems: as noted in subjective Critical Care Progress Note - Nutrition Nutrition: Nutrition Category Date Time Status Pureed [Dysphagia/Modified Consistency Diet] [DIET] Diets 07/19/16 Breakfast Active Assessment/Plan - Assessment and Plan (Free Text) Assessment: 81 year old female with a past medical history of HTN, arthritis, anxiety, seizures, back problems and gall bladder disease presents with fever and C-diff colitis. Patient was placed on antibiotic therapy, with signs of improvement. Patient medically stable for transfer to the medical floors. Plan: Neuro: Neuro check q4 07/14 CT Head: no definite acute intracranial abnormality . Midazolam 1 mg IV Q6H PRN Cardio: Maintain systolic BP >110 Levophed IV 4mg /NS @ 8mcg/min, titrated off 07/18 due to BP 96/60 Pulm: Maintain O2 Sat >92% 07/16 Vent settings: FiO2 40% CPAP 5/PS10 07/15 Vent Settings: FiO2 50% RR 14 PEEP 5 TV 500, Peak 24 AB/20 05:11 pH 7.28, CO2 31, O2 105, HCO3 16.3, base excess 11.0 07/18 05:07 pH 7.30, CO2 27, O2 123, HCO3 15.8, base excess 11.7 07/17 04:35 pH 7.31, CO2 25, O2 123, HCO3 15.8, base excess 12.1 Imagin/20 CXR: mild bibasilar atelectasis and small effusions felt to be present left larger than right. 07/18 CXR: low lung volumes. Crowed bronchovascular markings and mild bibasilar atelectasis 07/16 CXR: feeding tube above level of diaphragm 07/15: CXR: No active disease Endo: Maintain euglycemia GI: C. diff colitis Monitor BM 07/19 XRAY Abdomen: distal air-filled loops of colon consistent with colitis 07/14 CT Abdomen/Pelvis: Colitis, indeterminate splenic lesion : I/Os 3570/1115 = 2455.0 Monitor I/Os Kowalski is in place Maintain Kowalski care Renal: BUN/Cr: 13/0.5 Monitor I/Os Daily BMP Hypokalemia repleted Sodium bicarb @ 75 cc/hr IV [id number] [facility] Heme: H&H- 11.8/36.8 Monitor CBC ID: Patient appears clinically improved C diff colitis Contact precautions Low grade fever WBC: 43.5 ( 50.3-->43.6-->46.6>46.8>44.7>43.5) Neutrophils: 62 (48>60>52>62>62) Bands: 12 (37>26>23>18>12) 07/15: C-diff toxin Positive Daily CBC Acetaminophen 650 mg PO Q4 PRN Fever >100.4 F Flagyl 100 cc @ 100 cc/hr IVPB Q8 [facility] Vancomycin 500 mg PO QID, Vancomycin 500 mg [place] TID Rifaximin 550 mg PO BID [facility] Metronidazole 100 cc @ 100 cc/hr IVPB Q8 [facility] Prophylaxis: GI: Pepcid 20 mg IVP Q12 DVT: Heparin 5,000 units SC Q8
[2016-07-20 08:37] LABS: METAMYELOCYTE 4 % (0-0); NEUTROPHIL 62 % (50-75); REACTIVE LYMPHOCYTES 4 % (0-0); TOTAL CELLS COUNTED 100
--- NOTE | 2016-07-20 08:39 | CP.PCM.PN ---
Subjective - Date & Time of Evaluation Date of Evaluation: 07/20/16 Time of Evaluation: 08:37 - Subjective Subjective: F/U diarrhea. Pt is more awake and is looking better. Sitting in chair and answers questions. Still diarrhea. Worse post enema. Denies fever, chills, SZ, CP, RB, melena, hematuria, hemoptysis Objective - Vital Signs/Intake and Output Vital Signs (last 24 hours): Temp Pulse Resp BP Pulse Ox 97.9 F 103 H 26 H 146/78 97 07/20/16 08:00 07/20/16 07:39 07/20/16 07:39 07/20/16 07:39 07/20/16 07:39 Intake and Output: 07/20/16 07/20/16 06:59 18:59 Intake Total 1810 75 Output Total 465 40 Balance 1345 35 - Medications Medications: Current Medications Acetaminophen (Tylenol 325mg Tab) 650 mg PO Q4 PRN PRN Reason: Fever >100.4 F Last Admin: 07/15/16 09:14 Dose: 650 mg Famotidine (Pepcid) 20 mg IVP Q12 [facility] Last Admin: 07/19/16 22:21 Dose: 20 mg Heparin Sodium (Porcine) (Heparin) 5,000 units SC Q12 [facility] Last Admin: 07/19/16 22:21 Dose: 5,000 units Metronidazole (Flagyl) 100 mls @ 100 mls/hr IVPB Q8 [facility] Last Admin: 07/20/16 06:02 Dose: 100 mls/hr Sodium Bicarbonate 100 meq/ (Sodium Chloride) 1,000 mls @ 75 mls/hr IV .[id number] [facility] Stop: 07/20/16 13:39 Last Admin: 07/19/16 23:19 Dose: 75 mls/hr Rifaximin (Xifaxan) 550 mg PO BID [facility] Last Admin: 07/19/16 18:23 Dose: 550 mg Vancomycin HCl (Vancocin (Oral Or Rectal Use)) 500 mg PO QID [facility] Last Admin: 07/19/16 22:22 Dose: 500 mg Vancomycin HCl (Vancocin (Oral Or Rectal Use)) 500 mg [place] TID [facility] Last Admin: 07/19/16 18:23 Dose: 500 mg - Labs Labs: 07/20/16 06:30 07/20/16 06:30 PT 14.8 SECONDS (9.7-12.2) H 07/14/16 01:01 INR 1.3 07/14/16 01:01 APTT 37 SECONDS (21-34) H 07/14/16 01:01 - Constitutional Appears: Non-toxic - Neck Exam Neck Exam: absent: Tenderness - Respiratory Exam Respiratory Exam: Clear to Ausculation Bilateral - Cardiovascular Exam Cardiovascular Exam: RRR - GI/Abdominal Exam GI & Abdominal Exam: Distended, Soft, Normal Bowel Sounds. absent: Guarding, Rebound Additional comments: softer. less tender. - Extremities Exam Extremities Exam: absent: Calf Tenderness - Neurological Exam Neurological Exam: Alert, Awake, Oriented x3 Assessment and Plan (1) Acute respiratory failure Assessment & Plan: better Status: Acute (2) Sepsis Assessment & Plan: Decreasing WBC Status: Acute (3) Abdominal pain Assessment & Plan: colitis. c diff. Status: Acute (4) GERD (gastroesophageal reflux disease) Status: Suspected (5) Colitis Assessment & Plan: c difficile. Continue meds. Status: Acute (6) Diarrhea Status: Acute
[2016-07-20] MEDS: Vancomycin 125 MG/5 ML SOLN (ORAL/RECTAL) PR SCH ×3 (09:51→21:34)
[2016-07-20] MEDS: Vancomycin 125 MG/5 ML SOLN (ORAL/RECTAL) PO SCH ×4 (09:51→21:34)
--- NOTE | 2016-07-20 20:52 | CP.PCM.PN ---
Subjective - Date & Time of Evaluation Date of Evaluation: 07/20/16 Time of Evaluation: 20:49 - Subjective Subjective: pt is feeling good able to sit up no chest pain she ate well today diarrhea noted labs still not improving WBC still high will check the labs in am PT Objective - Vital Signs/Intake and Output Vital Signs (last 24 hours): Temp Pulse Resp BP Pulse Ox 98.4 F 99 H 18 174/83 H 96 07/20/16 19:00 07/20/16 19:00 07/20/16 19:00 07/20/16 19:00 07/20/16 15:13 Intake and Output: 07/20/16 07/21/16 18:59 06:59 Intake Total 775 240 Output Total 190 Balance 585 240 - Medications Medications: Current Medications Acetaminophen (Tylenol 325mg Tab) 650 mg PO Q4 PRN PRN Reason: Fever >100.4 F Last Admin: 07/15/16 09:14 Dose: 650 mg Famotidine (Pepcid) 20 mg IVP Q12 [facility] Last Admin: 07/20/16 09:50 Dose: 20 mg Heparin Sodium (Porcine) (Heparin) 5,000 units SC Q12 [facility] Last Admin: 07/20/16 09:50 Dose: 5,000 units Metronidazole (Flagyl) 100 mls @ 100 mls/hr IVPB Q8 [facility] Last Admin: 07/20/16 15:47 Dose: 100 mls/hr Rifaximin (Xifaxan) 550 mg PO BID [facility] Last Admin: 07/20/16 17:55 Dose: 550 mg Saccharomyces Boulardii (Florastor) 250 mg PO TID [facility] Vancomycin HCl (Vancocin (Oral Or Rectal Use)) 500 mg PO QID [facility] Last Admin: 07/20/16 17:55 Dose: 500 mg Vancomycin HCl (Vancocin (Oral Or Rectal Use)) 500 mg [place] TID [facility] Last Admin: 07/20/16 15:48 Dose: 500 mg - Labs Labs: 07/20/16 06:30 07/20/16 06:30 PT 14.8 SECONDS (9.7-12.2) H 07/14/16 01:01 INR 1.3 07/14/16 01:01 APTT 37 SECONDS (21-34) H 07/14/16 01:01
--- NOTE | 2016-07-20 21:19 | CP.PCM.PN ---
Subjective - Date & Time of Evaluation Date of Evaluation: 07/20/16 Time of Evaluation: 21:15 - Subjective Subjective: INFECTIOUS DISEASE PROGRESS NOTE Candis VERA MD, FACP 5T 554 07/20/2016 CHART REVIEWED PT EXAMINED CASE DISCUSSED PT IS A CANDIDATE FOR 'ARVIN PROTOCOL' FOR RECURRENT /DIFFICULT TO TREAT C. DIFF. ON HER LAST ADMISSION DESPITE NEGATIVE C. DIFF'S I TREATED HER ID EMPIRICALLY SINCE IT MADE THERAPEUTIC SENSE, AND SHE RESPONDED ACROSS THE BOARD. I DON'T KNOW WHAT OCCURRED AT [facility]. [place], WILL RE-EVALAUTE CONCURRENTLY. Objective - Vital Signs/Intake and Output Vital Signs (last 24 hours): Temp Pulse Resp BP Pulse Ox 98.4 F 99 H 18 174/83 H 96 07/20/16 19:00 07/20/16 19:00 07/20/16 19:00 07/20/16 19:00 07/20/16 15:13 Intake and Output: 07/20/16 07/21/16 18:59 06:59 Intake Total 775 240 Output Total 190 Balance 585 240 - Medications Medications: Current Medications Acetaminophen (Tylenol 325mg Tab) 650 mg PO Q4 PRN PRN Reason: Fever >100.4 F Last Admin: 07/15/16 09:14 Dose: 650 mg Famotidine (Pepcid) 20 mg IVP Q12 [facility] Last Admin: 07/20/16 09:50 Dose: 20 mg Heparin Sodium (Porcine) (Heparin) 5,000 units SC Q12 [facility] Last Admin: 07/20/16 09:50 Dose: 5,000 units Metronidazole (Flagyl) 100 mls @ 100 mls/hr IVPB Q8 [facility] Last Admin: 07/20/16 15:47 Dose: 100 mls/hr Rifaximin (Xifaxan) 550 mg PO BID [facility] Last Admin: 07/20/16 17:55 Dose: 550 mg Saccharomyces Boulardii (Florastor) 250 mg PO TID [facility] Vancomycin HCl (Vancocin (Oral Or Rectal Use)) 500 mg PO QID [facility] Last Admin: 07/20/16 17:55 Dose: 500 mg Vancomycin HCl (Vancocin (Oral Or Rectal Use)) 500 mg [place] TID [facility] Last Admin: 07/20/16 15:48 Dose: 500 mg - Labs Labs: 07/20/16 06:30 07/20/16 06:30 PT 14.8 SECONDS (9.7-12.2) H 07/14/16 01:01 INR 1.3 07/14/16 01:01 APTT 37 SECONDS (21-34) H 07/14/16 01:01 - Constitutional Appears: Non-toxic, No Acute Distress - Head Exam Head Exam: NORMAL INSPECTION - Eye Exam Eye Exam: Normal appearance Pupil Exam: PERRL - ENT Exam ENT Exam: Mucous Membranes Moist - Neck Exam Neck Exam: Normal Inspection - Respiratory Exam Respiratory Exam: Decreased Breath Sounds, Clear to Ausculation Bilateral, NORMAL BREATHING PATTERN - Cardiovascular Exam Cardiovascular Exam: REGULAR RHYTHM - GI/Abdominal Exam GI & Abdominal Exam: Soft, Normal Bowel Sounds. absent: Tenderness - Rectal Exam Rectal Exam: Deferred - Exam Exam: NORMAL INSPECTION - Neurological Exam Neurological Exam: Alert Additional comments: RESTING - Skin Skin Exam: Intact, Warm Assessment and Plan (1) C. difficile colitis Status: Acute (2) Acute respiratory failure Assessment & Plan: POSSIBLE RECURRENT C. DIFF, TO CONSIDER ARVIN PROTOCOL. Status: Acute (3) GERD (gastroesophageal reflux disease) Status: Suspected (4) Knee injury Status: Chronic (5) Sepsis Status: Acute (6) Bladder incontinence Status: Chronic (7) Abdominal pain Status: Acute (8) Seizure disorder Status: Chronic
[2016-07-21] MEDS: metroNIDAZOLE IV 500 mg/100 ml 100 ML IVPB SCH ×3 (05:38→21:30)
[2016-07-21 07:05] LABS: BASO # 0.1 K/uL (0.0-0.2); BASO % 0.2 % (0.0-2.0); EOS # 0.2 K/uL (0.0-0.7); EOS % 0.6 % (0.0-4.0); HEMATOCRIT 36.4 % (34.0-47.0); LYMPH # 4.2 K/uL (1.0-4.3); MEAN CELL VOLUME 83.8 fL (81.0-99.0); MEAN CORPUSCULAR HEMOGLOBIN 27.3 pg (27.0-31.0); MEAN CORPUSCULAR HGB CONC 32.6 g/dL (33.0-37.0); MEAN PLATELET VOLUME 7.9 fL (7.2-11.7); MONO # 4.1 K/uL (0.0-0.8); MONO % 10.8 % (0.0-10.0); NRBC % 0.1 % (0.0-2.0); PLATELET COUNT 544 K/uL (130-400); RED CELL DISTRIBUTION WIDTH 15.5 % (11.5-14.5)
[2016-07-21 07:08] LABS: CHLORIDE 101 mmol/L (98-107); POTASSIUM 3.5 mmol/L (3.6-5.2); SODIUM 133 mmol/L (132-148)
[2016-07-21 07:10] LABS: ALB/GLOB RATIO 0.8 (1.0-2.1); ALKALINE PHOSPHATASE 50 U/L (38-126); ALT/SGPT 29 U/L (9-52); AST/SGOT 46 U/L (14-36); BILIRUBIN,TOTAL 0.5 mg/dL (0.2-1.3); BLOOD UREA NITROGEN 10 mg/dL (7-17); CARBON DIOXIDE 25 mmol/L (22-30); GFR AFRICAN-AMERICAN > 60; GLUCOSE,RANDOM 78 mg/dL (65-105); TOTAL PROTEIN 4.5 g/dL (6.3-8.3)
[2016-07-21 07:11] LABS: CALCIUM 7.3 mg/dl (8.6-10.4); MAGNESIUM 1.5 mg/dL (1.6-2.3); PHOSPHOROUS 3.8 mg/dL (2.5-4.5)
[2016-07-21 07:30] LABS: WHITE BLOOD COUNT 37.6 K/uL (4.8-10.8)
[2016-07-21 10:01] LABS: METAMYELOCYTE 4 % (0-0); MYELOCYTE 4 % (0-0); NEUTROPHIL 59 % (50-75); REACTIVE LYMPHOCYTES 4 % (0-0); TOTAL CELLS COUNTED 100
[2016-07-21] MEDS: Vancomycin 125 MG/5 ML SOLN (ORAL/RECTAL) PR SCH ×2 (10:37→14:59)
[2016-07-21] MEDS: Saccharomyces Boulardi 250 mg Cap PO SCH ×3 (10:41→17:53)
[2016-07-21] MEDS: Vancomycin 125 MG/5 ML SOLN (ORAL/RECTAL) PO SCH ×4 (10:42→21:53)
--- NOTE | 2016-07-21 12:09 | CP.PCM.PN ---
Subjective - Date & Time of Evaluation Date of Evaluation: 07/21/16 Time of Evaluation: 12:06 - Subjective Subjective: CC: Follow up C Difficile Colitis Gets watery BMs, brown, also getting Vanco via enema. WBC decreasing (improving ) and no abdominal pain. C/O urinary retention Objective - Vital Signs/Intake and Output Vital Signs (last 24 hours): Temp Pulse Resp BP Pulse Ox 97.8 F 98 H 20 118/71 95 07/21/16 08:05 07/21/16 08:05 07/21/16 08:05 07/21/16 08:05 07/21/16 08:05 Intake and Output: 07/21/16 07/21/16 06:59 18:59 Intake Total 440 Balance 440 - Medications Medications: Current Medications Acetaminophen (Tylenol 325mg Tab) 650 mg PO Q4 PRN PRN Reason: Fever >100.4 F Last Admin: 07/15/16 09:14 Dose: 650 mg Famotidine (Pepcid) 20 mg IVP Q12 [facility] Last Admin: 07/21/16 10:42 Dose: 20 mg Heparin Sodium (Porcine) (Heparin) 5,000 units SC Q12 [facility] Last Admin: 07/21/16 11:42 Dose: 5,000 units Metronidazole (Flagyl) 100 mls @ 100 mls/hr IVPB Q8 [facility] Last Admin: 07/21/16 05:38 Dose: 100 mls/hr Rifaximin (Xifaxan) 550 mg PO BID [facility] Last Admin: 07/21/16 10:43 Dose: 550 mg Saccharomyces Boulardii (Florastor) 250 mg PO TID [facility] Last Admin: 07/21/16 10:41 Dose: 250 mg Vancomycin HCl (Vancocin (Oral Or Rectal Use)) 500 mg PO QID [facility] Last Admin: 07/21/16 10:42 Dose: 500 mg Vancomycin HCl (Vancocin (Oral Or Rectal Use)) 500 mg [place] TID [facility] Last Admin: 07/21/16 10:37 Dose: 500 mg - Labs Labs: 07/21/16 06:41 07/21/16 06:41 PT 14.8 SECONDS (9.7-12.2) H 07/14/16 01:01 INR 1.3 07/14/16 01:01 APTT 37 SECONDS (21-34) H 07/14/16 01:01 - Constitutional Appears: No Acute Distress, Chronically Ill - Head Exam Head Exam: NORMOCEPHALIC - Eye Exam Eye Exam: absent: Scleral icterus - Neck Exam Neck Exam: absent: Thyromegaly - Respiratory Exam Respiratory Exam: Clear to Ausculation Bilateral - Cardiovascular Exam Cardiovascular Exam: REGULAR RHYTHM - GI/Abdominal Exam GI & Abdominal Exam: Distended, Soft, Hyperactive Bowel Sounds. absent: Guarding, Tenderness, Mass, Rebound - Extremities Exam Additional comments: Bilat LE pitting edema Assessment and Plan (1) Acute respiratory failure Assessment & Plan: Resolved Status: Acute (2) Sepsis Assessment & Plan: Improving Status: Acute (3) GERD (gastroesophageal reflux disease) Assessment & Plan: Stable Status: Suspected (4) C. difficile colitis Assessment & Plan: On Vanco (PO and Enema) + IV Flagyl and Rifaximin, with gradual clinical improvement. ID notes read and appreciated. Status: Acute
[2016-07-21] MEDS ORDERED: Albuterol-Ipratrop 3 mg / 0.5 (3 ml) UD INH STA (18:50)
[2016-07-21] MEDS ORDERED: Albuterol-Ipratrop 3 mg / 0.5 (3 ml) UD ONE (18:50)
[2016-07-21] MEDS ORDERED: Potassium Chloride 20 mEq 100 ML IVPB ONE (19:01)
--- NOTE | 2016-07-21 19:24 | CP.PCM.PN ---
Subjective - Date & Time of Evaluation Date of Evaluation: 07/21/16 Time of Evaluation: 19:21 - Subjective Subjective: pt was doing well this am suddenly she started to have sob and cough and mucous pt was sweating tachycardia tachypnea noted immedietly pt was placed on BIPAP vitals noted 140/mt sinus 123/70 IV lasix 40mg given placed on bipap razo will be done if no improvemt will transfer her to ICU CXR pulmonary edema noted edema and anasarca noted Objective - Vital Signs/Intake and Output Vital Signs (last 24 hours): Temp Pulse Resp BP Pulse Ox 97.6 F 144 H 20 126/97 H 98 07/21/16 15:27 07/21/16 19:11 07/21/16 15:27 07/21/16 19:05 07/21/16 15:27 Intake and Output: 07/21/16 07/22/16 18:59 06:59 Intake Total 620 Output Total 2 Balance 618 - Medications Medications: Current Medications Acetaminophen (Tylenol 325mg Tab) 650 mg PO Q4 PRN PRN Reason: Fever >100.4 F Last Admin: 07/15/16 09:14 Dose: 650 mg Famotidine (Pepcid) 20 mg IVP Q12 [facility] Last Admin: 07/21/16 10:42 Dose: 20 mg Heparin Sodium (Porcine) (Heparin) 5,000 units SC Q12 [facility] Last Admin: 07/21/16 11:42 Dose: 5,000 units Metronidazole (Flagyl) 100 mls @ 100 mls/hr IVPB Q8 [facility] Last Admin: 07/21/16 14:59 Dose: 100 mls/hr Magnesium Sulfate/Dextrose (Magnesium Sulfate 1 Gm/100 Ml D5w) 100 mls @ 300 mls/hr IVPB Q30M [facility] Stop: 07/21/16 20:04 Potassium Chloride (Potassium Chloride 20 Meq/100 Ml) 100 mls @ 50 mls/hr IVPB ONCE ONE Stop: 07/21/16 21:00 Rifaximin (Xifaxan) 550 mg PO BID [facility] Last Admin: 07/21/16 10:43 Dose: 550 mg Saccharomyces Boulardii (Florastor) 250 mg PO TID [facility] Last Admin: 07/21/16 17:53 Dose: 250 mg Vancomycin HCl (Vancocin (Oral Or Rectal Use)) 500 mg PO QID [facility] Last Admin: 07/21/16 17:53 Dose: 500 mg - Labs Labs: 07/21/16 06:41 07/21/16 06:41 PT 14.8 SECONDS (9.7-12.2) H 07/14/16 01:01 INR 1.3 07/14/16 01:01 APTT 37 SECONDS (21-34) H 07/14/16 01:01
[2016-07-21 19:30] LABS: HEMATOCRIT 40.3 % (34.0-47.0); MEAN CELL VOLUME 85.7 fL (81.0-99.0); MEAN CORPUSCULAR HGB CONC 31.6 g/dL (33.0-37.0); MEAN PLATELET VOLUME 7.7 fL (7.2-11.7); RED CELL DISTRIBUTION WIDTH 15.6 % (11.5-14.5)
[2016-07-21 19:33] LABS: CHLORIDE 98 mmol/L (98-107); WHITE BLOOD COUNT 54.6 K/uL (4.8-10.8)
[2016-07-21 19:34] LABS: POTASSIUM 4.2 mmol/L (3.6-5.2); SODIUM 131 mmol/L (132-148)
[2016-07-21 19:36] LABS: ALB/GLOB RATIO 0.8 (1.0-2.1); AST/SGOT 45 U/L (14-36); BILIRUBIN,TOTAL 0.3 mg/dL (0.2-1.3); CARBON DIOXIDE 16 mmol/L (22-30); GFR AFRICAN-AMERICAN > 60; TOTAL PROTEIN 5.2 g/dL (6.3-8.3)
[2016-07-21 19:37] LABS: ALKALINE PHOSPHATASE 62 U/L (38-126); ALT/SGPT 19 U/L (9-52); BLOOD UREA NITROGEN 10 mg/dL (7-17); CALCIUM 7.8 mg/dl (8.6-10.4); GLUCOSE,RANDOM 205 mg/dL (65-105)
[2016-07-22] MEDS: metroNIDAZOLE IV 500 mg/100 ml 100 ML IVPB SCH ×3 (05:50→21:00)
[2016-07-22 06:35] LABS: BASO # 0.1 K/uL (0.0-0.2); BASO % 0.2 % (0.0-2.0); EOS # 0.1 K/uL (0.0-0.7); EOS % 0.3 % (0.0-4.0); HEMATOCRIT 36.6 % (34.0-47.0); LYMPH # 4.3 K/uL (1.0-4.3); LYMPH % 13.1 % (20.0-40.0); MEAN CELL VOLUME 85.2 fL (81.0-99.0); MEAN CORPUSCULAR HEMOGLOBIN 27.3 pg (27.0-31.0); MEAN PLATELET VOLUME 7.9 fL (7.2-11.7); MONO # 2.7 K/uL (0.0-0.8); MONO % 8.2 % (0.0-10.0); PLATELET COUNT 523 K/uL (130-400); RED CELL DISTRIBUTION WIDTH 15.8 % (11.5-14.5); WHITE BLOOD COUNT 32.7 K/uL (4.8-10.8)
[2016-07-22 06:37] LABS: CHLORIDE 100 mmol/L (98-107); SODIUM 130 mmol/L (132-148)
[2016-07-22 06:40] LABS: ALB/GLOB RATIO 0.9 (1.0-2.1); ALKALINE PHOSPHATASE 37 U/L (38-126); AST/SGOT 37 U/L (14-36); BILIRUBIN,TOTAL 0.2 mg/dL (0.2-1.3); BLOOD UREA NITROGEN 11 mg/dL (7-17); CARBON DIOXIDE 21 mmol/L (22-30); GFR AFRICAN-AMERICAN > 60; GLUCOSE,RANDOM 77 mg/dL (65-105); TOTAL PROTEIN 4.3 g/dL (6.3-8.3)
[2016-07-22 06:41] LABS: ALT/SGPT 23 U/L (9-52); CALCIUM 7.5 mg/dl (8.6-10.4); MAGNESIUM 1.9 mg/dL (1.6-2.3); PHOSPHOROUS 4.3 mg/dL (2.5-4.5)
--- NOTE | 2016-07-22 08:48 | CP.CCUPN ---
<Jaspreet Pedro - Last Filed: 07/22/16 15:54> CCU Subjective - Physician Review Subjective (Free Text): 07/15/16 17:58 Patient seen at bedside and is in no acute distress. Patient is intubated Vent settings ( FiO2 50% RR 14 PEEP 5 TV 500). Isolation precautions in place due to c. diff colitis findings. Patient cannot comply to an ROS at this time due to intubation and sedation. Family bedside and informed of management.. 07/16/16 12:11 Patient seen at beside and is in no acute distress. Patient was placed on a trial of CPAP with PS 10 and PEEP of 5. Patient tolerated CPAP well. Patient was extubated at 12pm with a follow up ABG at 1 pm. Patient remains on 8 mcg/ min of levophed. No ROS obtained at this time secondary to somnolence. 07/19/16 15:02 Pt seen and examined in no acute distress. Vitals stable. Unable to obtain ROS at initial time of evaluation because patient was still intubated. Patient 07/20/16 14:22 Patient seen and examined in no acute distress. Patient was extubated yesterday and on 3 L nc cannula satting well. Nursing reports no acute events overnight. Patient OOB to chair and responding well to questions. Patient still has diarrhea, which has been worse since after enema. Patient denies subjective fevers or chills, nausea, vomiting, constipation, paresthesias or headaches at this time. 07/22/16 08:59 Pt seen and examined in no acute distress. Patient currently on BiPAP. Patient states that she became short of breath last night. She felt very uncomfortable and nursing was alerted. Purchasing Director bedside stated that patient's legs appeared very swollen yesterday; decreasing considerably today. Patient admits to some diarrhea. She denied any chest pain, palpitations, current dyspnea, subjective fevers or chills, nausea, vomiting or constipation at this time. CCU Objective - Vital Signs / Intake & Output Vital Signs (Last 4 hours): Vital Signs Temp Pulse Resp BP Pulse Ox 07/22/16 08:17 105/48 L 07/22/16 08:14 100 H 07/22/16 08:00 97.5 F L 99 H 19 97/36 L 100 07/22/16 05:06 100 H Intake and Output (Last 8hrs): Intake & Output 07/21/16 07/22/16 07/22/16 22:59 06:59 14:59 Intake Total 540 260 Output Total 250 670 105 Balance 290 -410 -105 Weight 200 lb Intake: Intake, IV Amount 300 200 Right Proximal Port 100 0 Right Medial Port 100 200 Internal Jugular Right External Jugular 100 Oral 240 60 Output: Urine 250 670 105 Urethral (Kowalski) 250 670 105 Other: # Voids Urethral (Kowalski) 1 # Bowel Movements 1 - Physical Exam Head: Positive for: Atraumatic, Normocephalic Pupils: Positive for: PERRL Extroacular Muscles: Positive for: EOMI Conjunctiva: Positive for: Normal Ears: Positive for: Normal Mouth: Positive for: Moist Mucous Membranes Respiratory/Chest: Positive for: Clear to Auscultation. Negative for: Wheezes Cardiovascular: Positive for: Regular Rate and Rhythm, Normal S1, S2 Abdomen: Positive for: Normal Bowel Sounds. Negative for: Tenderness, Peritoneal Signs Upper Extremity: Positive for: NORMAL PULSES Lower Extremity: Negative for: Edema Skin: Positive for: Warm, Dry Psychiatric: Positive for: Oriented x 3, Normal Insight, Normal Concentration. Negative for: Alert - Medications Active Medications: Active Medications Generic Name Dose Route Start Last Admin Trade Name Freq PRN Reason Stop Dose Admin Acetaminophen 650 mg 07/14/16 04:18 07/15/16 09:14 Tylenol 325mg Tab PO 650 mg Q4 PRN Administration Fever >100.4 F Famotidine 20 mg 07/14/16 10:00 07/21/16 21:34 Pepcid IVP 20 mg Q12 [facility] Administration Furosemide 40 mg 07/22/16 07:45 07/22/16 08:17 Lasix IVP 40 mg Q12 [facility] Administration Heparin Sodium (Porcine) 5,000 units 07/18/16 22:00 07/21/16 21:33 Heparin SC 5,000 units Q12 [facility] Administration Metronidazole 100 mls @ 100 mls/hr 07/14/16 06:45 07/22/16 05:50 Flagyl IVPB 100 mls/hr Q8 [facility] Administration Rifaximin 550 mg 07/16/16 10:45 07/21/16 19:55 Xifaxan PO 550 mg BID [facility] Administration Saccharomyces Boulardii 250 mg 07/21/16 10:00 07/21/16 17:53 Florastor PO 250 mg TID [facility] Administration Vancomycin HCl 500 mg 07/14/16 10:00 07/21/16 21:53 Vancocin (Oral Or Rectal Use) PO 500 mg QID [facility] Administration - Patient Studies Lab Studies: Microbiology Studies 07/20/16 Unknown MRSA Culture - Final Nose MRSA NOT DETECTED Lab Studies 07/22/16 07/21/16 07/21/16 Range/Units 06:25 19:20 06:41 WBC 32.7 H 54.6 H* (4.8-10.8) K/uL RBC 4.29 4.71 (3.80-5.20) Mil/uL Hgb 11.7 12.7 (11.0-16.0) g/dL Hct 36.6 40.3 (34.0-47.0) % MCV 85.2 85.7 (81.0-99.0) fL MCH 27.3 27.0 (27.0-31.0) pg MCHC 32.0 L 31.6 L (33.0-37.0) g/dL RDW 15.8 H 15.6 H (11.5-14.5) % Plt Count 523 H D 646 H D (130-400) K/uL MPV 7.9 7.7 (7.2-11.7) fL Neut % (Auto) 78.2 H (50.0-75.0) % Lymph % (Auto) 13.1 L (20.0-40.0) % [place] % (Auto) 8.2 (0.0-10.0) % Eos % (Auto) 0.3 (0.0-4.0) % Baso % (Auto) 0.2 (0.0-2.0) % Neut # 25.6 H (1.8-7.0) K/uL Lymph # 4.3 (1.0-4.3) K/uL [place] # 2.7 H (0.0-0.8) K/uL Eos # 0.1 (0.0-0.7) K/uL Baso # 0.1 (0.0-0.2) K/uL Neutrophils % (Manual) 59 (50-75) % Band Neutrophils % 21 H* (0-2) % Lymphocytes % (Manual) 3 L (20-40) % Reactive Lymphs % 4 H (0-0) % Monocytes % (Manual) 5 (0-10) % Metamyelocytes % 4 H (0-0) % Myelocytes % 4 H (0-0) % Toxic Granulation Present Platelet Estimate Increased H (NORMAL) Poikilocytosis (manual Slight Anisocytosis (manual) Slight Sodium 130 L 131 L (132-148) mmol/L Potassium 4.0 4.2 (3.6-5.2) mmol/L Chloride 100 98 (98-107) mmol/L Carbon Dioxide 21 L 16 L (22-30) mmol/L Anion Gap 13 21 H (10-20) BUN 11 10 (7-17) mg/dL Creatinine 0.5 L 0.8 (0.7-1.2) MG/DL Est GFR ( Amer) > 60 > 60 Est GFR (Non-Af Amer) > 60 > 60 Random Glucose 77 205 H (65-105) mg/dL Calcium 7.5 L 7.8 L (8.6-10.4) mg/dl Phosphorus 4.3 (2.5-4.5) mg/dL Magnesium 1.9 (1.6-2.3) mg/dL Total Bilirubin 0.2 0.3 (0.2-1.3) mg/dL AST 37 H 45 H (14-36) U/L ALT 23 19 (9-52) U/L Alkaline Phosphatase 37 L D 62 (38-126) U/L Total Creatine Kinase < 20 L (30-135) U/L CK-MB (Mass) 1.01 (0.0-3.38) ng/mL Troponin I, Quant 0.0210 (0.00-0.120) ng/mL Total Protein 4.3 L 5.2 L (6.3-8.3) g/dL Albumin 2.0 L 2.3 L (3.5-5.0) g/dL Globulin 2.3 2.9 (2.2-3.9) gm/dL Albumin/Globulin Ratio 0.9 L 0.8 L (1.0-2.1) Laboratory Results - last 24 hr 07/21/16 07/21/16 07/22/16 06:41 19:20 06:25 WBC 54.6 H* 32.7 H RBC 4.71 4.29 Hgb 12.7 11.7 Hct 40.3 36.6 MCV 85.7 85.2 MCH 27.0 27.3 MCHC 31.6 L 32.0 L RDW 15.6 H 15.8 H Plt Count 646 H D 523 H D MPV 7.7 7.9 Neut % (Auto) 78.2 H Lymph % (Auto) 13.1 L [place] % (Auto) 8.2 Eos % (Auto) 0.3 Baso % (Auto) 0.2 Neut # 25.6 H Lymph # 4.3 [place] # 2.7 H Eos # 0.1 Baso # 0.1 Neutrophils % (Manual) 59 Band Neutrophils % 21 H* Lymphocytes % (Manual) 3 L Reactive Lymphs % 4 H Monocytes % (Manual) 5 Metamyelocytes % 4 H Myelocytes % 4 H Toxic Granulation Present Platelet Estimate Increased H Poikilocytosis (manual Slight Anisocytosis (manual) Slight Sodium 131 L 130 L Potassium 4.2 4.0 Chloride 98 100 Carbon Dioxide 16 L 21 L Anion Gap 21 H 13 BUN 10 11 Creatinine 0.8 0.5 L Est GFR ( Amer) > 60 > 60 Est GFR (Non-Af Amer) > 60 > 60 Random Glucose 205 H 77 Calcium 7.8 L 7.5 L Phosphorus 4.3 Magnesium 1.9 Total Bilirubin 0.3 0.2 AST 45 H 37 H ALT 19 23 Alkaline Phosphatase 62 37 L D Total Creatine Kinase < 20 L CK-MB (Mass) 1.01 Troponin I, Quant 0.0210 Total Protein 5.2 L 4.3 L Albumin 2.3 L 2.0 L Globulin 2.9 2.3 Albumin/Globulin Ratio 0.8 L 0.9 L Review of Systems - Review of Systems Review of Systems: refer to subjective Critical Care Progress Note - Nutrition Nutrition: Nutrition Category Date Time Status Pureed [Dysphagia/Modified Consistency Diet] [DIET] Diets 07/19/16 Breakfast Active Assessment/Plan - Assessment and Plan (Free Text) Assessment: 81 year old female with a past medical history of HTN, arthritis, anxiety, seizures, back problems and gall bladder disease presents with fever and C-diff colitis. Patient was placed on antibiotic therapy, with signs of improvement. Patient was transferred to the medical floor earlier in the week however had an episode of respiratory distress last night for which she was placed on BiPAP and upgraded for critical care monitoring. Plan: Neuro: Neuro check q4 07/14 CT Head: no definite acute intracranial abnormality . Midazolam 1 mg IV Q6H PRN Cardio: Hypotensive, but stable Maintain systolic BP >110 Pulm: Maintain O2 Sat >92% on BiPAP therapy now- Likely secondary to fluid retention- Lasix 40 mg IV Q12 Monitor AB/20 05:11 pH 7.28, CO2 31, O2 105, HCO3 16.3, base excess 11.0 Imagin/20 CXR: mild bibasilar atelectasis and small effusions felt to be present left larger than right. F/U XRAY in AM Endo: Maintain euglycemia GI: C. diff colitis - On abx as listed below ( ID) Monitor BMs- Had a small loose BM today 07/19 XRAY Abdomen: distal air-filled loops of colon consistent with colitis 07/14 CT Abdomen/Pelvis: Colitis, indeterminate splenic lesion : Monitor I/Os Kowalski is in place Maintain Kowalski care Renal: BUN/Cr: 11/0.5 Monitor I/Os Daily BMP Hypokalemia repleted Heme: H&H- 11.7/36.6 Monitor CBC ID: Patient appears clinically improved C diff colitis Contact precautions Low grade fever WBC:32.7 ( decreasing) Neutrophils: 62 (48>60>52>62>62) Bands: 13 Daily CBC Acetaminophen 650 mg PO Q4 PRN Fever >100.4 F Flagyl 100 cc @ 100 cc/hr IVPB Q8 [facility] Vancomycin 500 mg PO QID, Vancomycin 500 mg MD TID Rifaximin 550 mg PO BID [facility] Metronidazole 100 cc @ 100 cc/hr IVPB Q8 [facility] Will require PICC placement Prophylaxis: GI: Pepcid 20 mg IVP Q12 DVT: Heparin 5,000 units SC Q8 <Bladimir Levy - Last Filed: 07/22/16 16:45> CCU Objective - Vital Signs / Intake & Output Vital Signs (Last 4 hours): Vital Signs Temp Pulse Resp BP Pulse Ox 07/22/16 16:00 97.4 F L 100 H 24 89/52 L 100 07/22/16 15:00 102 H 22 94/52 L 98 07/22/16 14:00 101 H 22 94/51 L 98 07/22/16 13:00 118 H 23 104/48 L 100 Intake and Output (Last 8hrs): Intake & Output 07/22/16 07/22/16 07/22/16 06:59 14:59 22:59 Intake Total 260 640 120 Output Total 670 1365 120 Balance -410 -725 0 Intake: Intake, IV Amount 200 100 Right Proximal Port 0 Right Medial Port 200 100 Internal Jugular Oral 60 540 120 Output: Urine 670 1365 120 Urethral (Kowalski) 670 1365 120 Other: # Bowel Movements 1 - Medications Active Medications: Active Medications Generic Name Dose Route Start Last Admin Trade Name Freq PRN Reason Stop Dose Admin Acetaminophen 650 mg 07/14/16 04:18 07/15/16 09:14 Tylenol 325mg Tab PO 650 mg Q4 PRN Administration Fever >100.4 F Famotidine 20 mg 07/14/16 10:00 07/22/16 09:40 Pepcid IVP 20 mg Q12 [facility] Administration Furosemide 40 mg 07/22/16 07:45 07/22/16 13:13 Lasix IVP Not Given Q12 [facility] Heparin Sodium (Porcine) 5,000 units 07/18/16 22:00 07/22/16 09:40 Heparin SC 5,000 units Q12 [facility] Administration Metronidazole 100 mls @ 100 mls/hr 07/14/16 06:45 07/22/16 13:12 Flagyl IVPB 100 mls/hr Q8 [facility] Administration Rifaximin 550 mg 07/16/16 10:45 07/22/16 09:39 Xifaxan PO 550 mg BID [facility] Administration Saccharomyces Boulardii 250 mg 07/21/16 10:00 07/22/16 13:13 Florastor PO 250 mg TID [facility] Administration Vancomycin HCl 500 mg 07/14/16 10:00 07/22/16 13:14 Vancocin (Oral Or Rectal Use) PO 500 mg QID [facility] Administration - Patient Studies Lab Studies: Lab Studies 07/22/16 07/21/16 Range/Units 06:25 19:20 WBC 32.7 H 54.6 H* (4.8-10.8) K/uL RBC 4.29 4.71 (3.80-5.20) Mil/uL Hgb 11.7 12.7 (11.0-16.0) g/dL Hct 36.6 40.3 (34.0-47.0) % MCV 85.2 85.7 (81.0-99.0) fL MCH 27.3 27.0 (27.0-31.0) pg MCHC 32.0 L 31.6 L (33.0-37.0) g/dL RDW 15.8 H 15.6 H (11.5-14.5) % Plt Count 523 H D 646 H D (130-400) K/uL MPV 7.9 7.7 (7.2-11.7) fL Neut % (Auto) 78.2 H (50.0-75.0) % Lymph % (Auto) 13.1 L (20.0-40.0) % [place] % (Auto) 8.2 (0.0-10.0) % Eos % (Auto) 0.3 (0.0-4.0) % Baso % (Auto) 0.2 (0.0-2.0) % Neut # 25.6 H (1.8-7.0) K/uL Lymph # 4.3 (1.0-4.3) K/uL [place] # 2.7 H (0.0-0.8) K/uL Eos # 0.1 (0.0-0.7) K/uL Baso # 0.1 (0.0-0.2) K/uL Neutrophils % (Manual) 57 (50-75) % Band Neutrophils % 13 H* (0-2) % Lymphocytes % (Manual) 19 L (20-40) % Monocytes % (Manual) 6 (0-10) % Metamyelocytes % 2 H (0-0) % Myelocytes % 3 H (0-0) % Nucleated RBC % 2 H (0-0) % Platelet Estimate Slightly increased H (NORMAL) Polychromasia Slight Hypochromasia (manual) Slight Anisocytosis (manual) Slight Sodium 130 L 131 L (132-148) mmol/L Potassium 4.0 4.2 (3.6-5.2) mmol/L Chloride 100 98 (98-107) mmol/L Carbon Dioxide 21 L 16 L (22-30) mmol/L Anion Gap 13 21 H (10-20) BUN 11 10 (7-17) mg/dL Creatinine 0.5 L 0.8 (0.7-1.2) MG/DL Est GFR ( Amer) > 60 > 60 Est GFR (Non-Af Amer) > 60 > 60 Random Glucose 77 205 H (65-105) mg/dL Calcium 7.5 L 7.8 L (8.6-10.4) mg/dl Phosphorus 4.3 (2.5-4.5) mg/dL Magnesium 1.9 (1.6-2.3) mg/dL Total Bilirubin 0.2 0.3 (0.2-1.3) mg/dL AST 37 H 45 H (14-36) U/L ALT 23 19 (9-52) U/L Alkaline Phosphatase 37 L D 62 (38-126) U/L Total Creatine Kinase < 20 L (30-135) U/L CK-MB (Mass) 1.01 (0.0-3.38) ng/mL Troponin I, Quant 0.0210 (0.00-0.120) ng/mL Total Protein 4.3 L 5.2 L (6.3-8.3) g/dL Albumin 2.0 L 2.3 L (3.5-5.0) g/dL Globulin 2.3 2.9 (2.2-3.9) gm/dL Albumin/Globulin Ratio 0.9 L 0.8 L (1.0-2.1) Laboratory Results - last 24 hr 07/21/16 07/22/16 19:20 06:25 WBC 54.6 H* 32.7 H RBC 4.71 4.29 Hgb 12.7 11.7 Hct 40.3 36.6 MCV 85.7 85.2 MCH 27.0 27.3 MCHC 31.6 L 32.0 L RDW 15.6 H 15.8 H Plt Count 646 H D 523 H D MPV 7.7 7.9 Neut % (Auto) 78.2 H Lymph % (Auto) 13.1 L [place] % (Auto) 8.2 Eos % (Auto) 0.3 Baso % (Auto) 0.2 Neut # 25.6 H Lymph # 4.3 [place] # 2.7 H Eos # 0.1 Baso # 0.1 Neutrophils % (Manual) 57 Band Neutrophils % 13 H* Lymphocytes % (Manual) 19 L Monocytes % (Manual) 6 Metamyelocytes % 2 H Myelocytes % 3 H Nucleated RBC % 2 H Platelet Estimate Slightly increased H Polychromasia Slight Hypochromasia (manual) Slight Anisocytosis (manual) Slight Sodium 131 L 130 L Potassium 4.2 4.0 Chloride 98 100 Carbon Dioxide 16 L 21 L Anion Gap 21 H 13 BUN 10 11 Creatinine 0.8 0.5 L Est GFR ( Amer) > 60 > 60 Est GFR (Non-Af Amer) > 60 > 60 Random Glucose 205 H 77 Calcium 7.8 L 7.5 L Phosphorus 4.3 Magnesium 1.9 Total Bilirubin 0.3 0.2 AST 45 H 37 H ALT 19 23 Alkaline Phosphatase 62 37 L D Total Creatine Kinase < 20 L CK-MB (Mass) 1.01 Troponin I, Quant 0.0210 Total Protein 5.2 L 4.3 L Albumin 2.3 L 2.0 L Globulin 2.9 2.3 Albumin/Globulin Ratio 0.8 L 0.9 L Critical Care Progress Note - Nutrition Nutrition: Nutrition Category Date Time Status Pureed [Dysphagia/Modified Consistency Diet] [DIET] Diets 07/19/16 Breakfast Active Assessment/Plan (1) C. difficile colitis Current Visit: Yes Status: Acute Attending/Attestation - Attestation I have personally seen and examined this patient.: Yes I have fully participated in the care of the patient.: Yes I have reviewed all pertinent clinical information: Yes Notes (Text): 07/22/16 16:44 I have seen and examined the patient. Medical records, lab studies, and imaging were reviewed by me and a management plan was formulated on multidisciplinary rounds with resident Dr. Pedro. I agree with their above documented assessment and plan. Pulm: Acute respiratory failure secondary to fluid overload, starting diuresis. Patient already improving now on nasal cannula oxygen. Critical Care Time 35 minutes. Multi-disciplinary rounds were performed with house staff, nursing, speech therapy, respiratory therapy, pharmacy and nutrition with integrated input from the primary team/attending and other consulting services. The documented time is cumulative and includes review of patient data/exams/labs/chart review and examination of the patient on rounds and throughout the day; time is exclusive of any procedures or teaching time.
--- NOTE | 2016-07-22 09:04 | RAD ---
HISTORY: chf COMPARISON: 07/19/2016 FINDINGS: LUNGS: Lung volumes are shallow. Interval increased pulmonary venous congestion with interval right mid lung zone discoid atelectasis suggested. PLEURA: Tiny bilateral pleural effusions suggested. No pneumothorax apparent. CARDIOVASCULAR: Cardiomegaly-as before OSSEOUS STRUCTURES: Bilateral shoulder osteoarthrosis in generalized osteopenia VISUALIZED UPPER ABDOMEN: A 5 cm rim calcified left upper abdominal quadrant lesion is present. A large old calcified splenic hematoma is probable OTHER FINDINGS: The right central venous catheter tip is in the superior vena cava as before. IMPRESSION: Prior endotracheal tube - removed. Interval increased pulmonary venous congestion with cardiomegaly -consistent with mild CHF
[2016-07-22] MEDS: Saccharomyces Boulardi 250 mg Cap PO SCH ×3 (09:41→17:30)
[2016-07-22] MEDS: Vancomycin 125 MG/5 ML SOLN (ORAL/RECTAL) PO SCH ×4 (09:41→21:55)
[2016-07-22 10:29] LABS: METAMYELOCYTE 2 % (0-0); MYELOCYTE 3 % (0-0); NEUTROPHIL 57 % (50-75); NUCLEATED RED BLOOD CELL 2 % (0-0); TOTAL CELLS COUNTED 100
--- NOTE | 2016-07-22 12:20 | CP.PCM.PN ---
Subjective - Date & Time of Evaluation Date of Evaluation: 07/22/16 Time of Evaluation: 11:20 - Subjective Subjective: F/U colitis. Pt reports feeling better. CAme back to CCU for SOB- less now. Denies RB, melena, Co, SZ, MADRID, cough, hematuria, hemoptysis. Reports less diarrhea. Objective - Vital Signs/Intake and Output Vital Signs (last 24 hours): Temp Pulse Resp BP Pulse Ox 97.5 F L 104 H 22 99/57 L 100 07/22/16 08:00 07/22/16 11:00 07/22/16 11:00 07/22/16 11:00 07/22/16 11:00 Intake and Output: 07/22/16 07/22/16 06:59 18:59 Intake Total 680 240 Output Total 920 840 Balance -240 -600 - Medications Medications: Current Medications Acetaminophen (Tylenol 325mg Tab) 650 mg PO Q4 PRN PRN Reason: Fever >100.4 F Last Admin: 07/15/16 09:14 Dose: 650 mg Famotidine (Pepcid) 20 mg IVP Q12 [facility] Last Admin: 07/22/16 09:40 Dose: 20 mg Furosemide (Lasix) 40 mg IVP Q12 [facility] Last Admin: 07/22/16 08:17 Dose: 40 mg Heparin Sodium (Porcine) (Heparin) 5,000 units SC Q12 [facility] Last Admin: 07/22/16 09:40 Dose: 5,000 units Metronidazole (Flagyl) 100 mls @ 100 mls/hr IVPB Q8 [facility] Last Admin: 07/22/16 05:50 Dose: 100 mls/hr Rifaximin (Xifaxan) 550 mg PO BID [facility] Last Admin: 07/22/16 09:39 Dose: 550 mg Saccharomyces Boulardii (Florastor) 250 mg PO TID [facility] Last Admin: 07/22/16 09:41 Dose: 250 mg Vancomycin HCl (Vancocin (Oral Or Rectal Use)) 500 mg PO QID [facility] Last Admin: 07/22/16 09:41 Dose: 500 mg - Labs Labs: 07/22/16 06:25 07/22/16 06:25 PT 14.8 SECONDS (9.7-12.2) H 07/14/16 01:01 INR 1.3 07/14/16 01:01 APTT 37 SECONDS (21-34) H 07/14/16 01:01 - Constitutional Appears: Non-toxic - Respiratory Exam Respiratory Exam: Wheezes - Cardiovascular Exam Cardiovascular Exam: RRR - GI/Abdominal Exam GI & Abdominal Exam: Distended, Soft, Normal Bowel Sounds. absent: Tenderness - Extremities Exam Extremities Exam: absent: Calf Tenderness - Neurological Exam Neurological Exam: Alert, Awake Assessment and Plan (1) Acute respiratory failure Assessment & Plan: SOB- improving. Likely fluid overload. Status: Acute (2) Sepsis Status: Acute (3) Abdominal pain Status: Acute (4) GERD (gastroesophageal reflux disease) Status: Suspected (5) Colitis Assessment & Plan: c diff. Improving on meds Status: Acute (6) Diarrhea Assessment & Plan: Lessening Status: Acute
--- NOTE | 2016-07-22 17:52 | CP.PCM.PN ---
Subjective - Date & Time of Evaluation Date of Evaluation: 07/22/16 Time of Evaluation: 17:50 - Subjective Subjective: pt is feeling better now off bipap eating ok less edema making urination low bp Temp Pulse Resp BP Pulse Ox 97.4 F L 96 H 21 91/50 L 100 07/22/16 16:00 07/22/16 17:00 07/22/16 17:00 07/22/16 17:00 07/22/16 17:00 chest good air entry regular hs abd soft edema noted Temp Pulse Resp BP Pulse Ox 97.4 F L 96 H 21 91/50 L 100 07/22/16 16:00 07/22/16 17:00 07/22/16 17:00 07/22/16 17:00 07/22/16 17:00 07/22/16 06:25 07/22/16 06:25 a/P likly fluid overload pulmonary edema improving c diff seizures diarrhea continue current treatment Objective - Vital Signs/Intake and Output Vital Signs (last 24 hours): Temp Pulse Resp BP Pulse Ox 97.4 F L 96 H 21 91/50 L 100 07/22/16 16:00 07/22/16 17:00 07/22/16 17:00 07/22/16 17:00 07/22/16 17:00 Intake and Output: 07/22/16 07/22/16 06:59 18:59 Intake Total 680 880 Output Total 920 1545 Balance -240 -665 - Medications Medications: Current Medications Acetaminophen (Tylenol 325mg Tab) 650 mg PO Q4 PRN PRN Reason: Fever >100.4 F Last Admin: 07/15/16 09:14 Dose: 650 mg Famotidine (Pepcid) 20 mg IVP Q12 [facility] Last Admin: 07/22/16 09:40 Dose: 20 mg Furosemide (Lasix) 40 mg IVP Q12 [facility] Last Admin: 07/22/16 13:13 Dose: Not Given Heparin Sodium (Porcine) (Heparin) 5,000 units SC Q12 [facility] Last Admin: 07/22/16 09:40 Dose: 5,000 units Metronidazole (Flagyl) 100 mls @ 100 mls/hr IVPB Q8 [facility] Last Admin: 07/22/16 13:12 Dose: 100 mls/hr Rifaximin (Xifaxan) 550 mg PO BID [facility] Last Admin: 07/22/16 17:29 Dose: 550 mg Saccharomyces Boulardii (Florastor) 250 mg PO TID [facility] Last Admin: 07/22/16 17:30 Dose: 250 mg Vancomycin HCl (Vancocin (Oral Or Rectal Use)) 500 mg PO QID [facility] Last Admin: 07/22/16 17:30 Dose: 500 mg - Labs Labs: 07/22/16 06:25 07/22/16 06:25 PT 14.8 SECONDS (9.7-12.2) H 07/14/16 01:01 INR 1.3 07/14/16 01:01 APTT 37 SECONDS (21-34) H 07/14/16 01:01
--- NOTE | 2016-07-22 20:43 | CP.PCM.PN ---
Subjective - Date & Time of Evaluation Date of Evaluation: 07/22/16 Time of Evaluation: 20:40 - Subjective Subjective: INFECTIOUS DISEASE IUC/CCU PROGRESS NOTE #6 EDEN VERA MD, FACP 07/22/2016 CHART REVIEWED PT EXAMINED CASE DISCUSSED CLINICALLY EVENTS NOTED, FROM CHF AND REQUIING TRANSFER TO ICU/CCU WITH USE OF BIPAP AND LASIX. WBC SLOWLY RESPONDING, WOULD CHANGE OFF RECDTAL VANCOMCIN AND CONTINUE HIGH DOSE PO VANCOMYCIN 500 MG QID. WATCH HER FLUID STATUS. Objective - Vital Signs/Intake and Output Vital Signs (last 24 hours): Temp Pulse Resp BP Pulse Ox 97.4 F L 96 H 22 99/52 L 100 07/22/16 16:00 07/22/16 18:00 07/22/16 18:00 07/22/16 18:00 07/22/16 18:00 Intake and Output: 07/22/16 07/23/16 18:59 06:59 Intake Total 1060 Output Total 1745 Balance -685 - Medications Medications: Current Medications Acetaminophen (Tylenol 325mg Tab) 650 mg PO Q4 PRN PRN Reason: Fever >100.4 F Last Admin: 07/15/16 09:14 Dose: 650 mg Famotidine (Pepcid) 20 mg IVP Q12 [facility] Last Admin: 07/22/16 09:40 Dose: 20 mg Furosemide (Lasix) 40 mg IVP Q12 [facility] Last Admin: 07/22/16 13:13 Dose: Not Given Heparin Sodium (Porcine) (Heparin) 5,000 units SC Q12 [facility] Last Admin: 07/22/16 09:40 Dose: 5,000 units Metronidazole (Flagyl) 100 mls @ 100 mls/hr IVPB Q8 [facility] Last Admin: 07/22/16 13:12 Dose: 100 mls/hr Rifaximin (Xifaxan) 550 mg PO BID [facility] Last Admin: 07/22/16 17:29 Dose: 550 mg Saccharomyces Boulardii (Florastor) 250 mg PO TID [facility] Last Admin: 07/22/16 17:30 Dose: 250 mg Vancomycin HCl (Vancocin (Oral Or Rectal Use)) 500 mg PO QID [facility] Last Admin: 07/22/16 17:30 Dose: 500 mg - Labs Labs: 07/22/16 06:25 07/22/16 06:25 PT 14.8 SECONDS (9.7-12.2) H 07/14/16 01:01 INR 1.3 07/14/16 01:01 APTT 37 SECONDS (21-34) H 07/14/16 01:01 - Constitutional Appears: Non-toxic, Older Than Stated Age, Chronically Ill - Head Exam Head Exam: ATRAUMATIC - Eye Exam Eye Exam: Normal appearance - ENT Exam ENT Exam: Mucous Membranes Dry - Respiratory Exam Respiratory Exam: Decreased Breath Sounds, NORMAL BREATHING PATTERN - Cardiovascular Exam Cardiovascular Exam: REGULAR RHYTHM - GI/Abdominal Exam GI & Abdominal Exam: Soft, Hypoactive Bowel Sounds. absent: Tenderness, Rebound - Rectal Exam Rectal Exam: Deferred Assessment and Plan (1) C. difficile colitis Status: Acute (2) Acute respiratory failure Assessment & Plan: NOW ACUTE CHF ALSO APPRECIATED ON CXR. Status: Acute (3) GERD (gastroesophageal reflux disease) Status: Suspected (4) Knee injury Status: Chronic (5) Sepsis Status: Acute (6) Bladder incontinence Status: Chronic (7) Abdominal pain Status: Acute (8) Seizure disorder Status: Chronic
[2016-07-23] MEDS: metroNIDAZOLE IV 500 mg/100 ml 100 ML IVPB SCH ×3 (06:00→22:02)
[2016-07-23 08:25] LABS: BASO # 0.1 K/uL (0.0-0.2); BASO % 0.3 % (0.0-2.0); EOS # 0.2 K/uL (0.0-0.7); HEMATOCRIT 36.2 % (34.0-47.0); LYMPH # 3.8 K/uL (1.0-4.3); MEAN CELL VOLUME 83.5 fL (81.0-99.0); MEAN CORPUSCULAR HEMOGLOBIN 26.7 pg (27.0-31.0); MEAN CORPUSCULAR HGB CONC 31.9 g/dL (33.0-37.0); MEAN PLATELET VOLUME 7.6 fL (7.2-11.7); MONO # 1.7 K/uL (0.0-0.8); MONO % 7.1 % (0.0-10.0); NRBC % 0.1 % (0.0-2.0); PLATELET COUNT 442 K/uL (130-400); RED CELL DISTRIBUTION WIDTH 15.4 % (11.5-14.5); WHITE BLOOD COUNT 23.6 K/uL (4.8-10.8)
[2016-07-23 08:36] LABS: CHLORIDE 99 mmol/L (98-107); POTASSIUM 3.6 mmol/L (3.6-5.2); SODIUM 131 mmol/L (132-148)
[2016-07-23 08:38] LABS: BILIRUBIN,TOTAL 0.2 mg/dL (0.2-1.3); GFR AFRICAN-AMERICAN > 60
[2016-07-23 08:39] LABS: ALB/GLOB RATIO 0.8 (1.0-2.1); ALKALINE PHOSPHATASE 41 U/L (38-126); ALT/SGPT 20 U/L (9-52); AST/SGOT 45 U/L (14-36); BLOOD UREA NITROGEN 9 mg/dL (7-17); CARBON DIOXIDE 22 mmol/L (22-30); GLUCOSE,RANDOM 84 mg/dL (65-105); PHOSPHOROUS 3.7 mg/dL (2.5-4.5); TOTAL PROTEIN 4.7 g/dL (6.3-8.3)
[2016-07-23 08:40] LABS: CALCIUM 7.3 mg/dl (8.6-10.4); MAGNESIUM 1.5 mg/dL (1.6-2.3)
[2016-07-23] MEDS: Saccharomyces Boulardi 250 mg Cap PO SCH ×3 (09:24→17:32)
[2016-07-23] MEDS: Vancomycin 125 MG/5 ML SOLN (ORAL/RECTAL) PO SCH ×4 (09:27→23:00)
--- NOTE | 2016-07-23 09:52 | RAD ---
HISTORY: resp distress f/u COMPARISON: 07/27/2016 FINDINGS: LUNGS: Mild hazy opacity in the lung bases. This remains essentially unchanged. PLEURA: Possible small pleural effusion on the left. CARDIOVASCULAR: Enlarged cardiomediastinal silhouette. OSSEOUS STRUCTURES: The osseous structures demonstrate degenerative changes. VISUALIZED UPPER ABDOMEN: Upper abdomen is suboptimally evaluated. Rounded calcific opacity in the left upper quadrant again seen, stable. OTHER FINDINGS: Presumed vascular catheter on the right with the distal tip of the catheter overlying the projection of the SVC/right atrial junction. IMPRESSION: Mild hazy opacity in the lung bases, essentially unchanged.
[2016-07-23] MEDS ORDERED: Potassium Chloride 20 mEq/15 ml LIQ UD PO ONE (10:11)
[2016-07-23 11:30] LABS: METAMYELOCYTE 3 % (0-0); MYELOCYTE 1 % (0-0); NEUTROPHIL 64 % (50-75); REACTIVE LYMPHOCYTES 2 % (0-0); TOTAL CELLS COUNTED 100
--- NOTE | 2016-07-23 12:14 | RAD ---
HISTORY: S/P PICC LINE INSERTION COMPARISON: 07/23/2016 FINDINGS: LUNGS: Hazy opacity in the right lung base. PLEURA: No significant pleural effusion identified, no pneumothorax apparent. CARDIOVASCULAR: Normal. OSSEOUS STRUCTURES: The osseous structures demonstrate degenerative changes. VISUALIZED UPPER ABDOMEN: Upper abdomen is suboptimally evaluated. OTHER FINDINGS: Interval introduction of right-sided PICC with the distal tip of the catheter overlying the projection of the SVC/right atrial junction. Previously existing right-sided presumed vascular catheter unchanged in position. IMPRESSION: Interval introduction of right-sided PICC with the distal tip of the catheter overlying the projection of the SVC/right atrial junction. Hazy opacity in the right lung base again noted.
--- NOTE | 2016-07-23 12:30 | CP.PCM.PN ---
Subjective - Date & Time of Evaluation Date of Evaluation: 07/23/16 Time of Evaluation: 12:28 - Subjective Subjective: patient condition is improving. Vital signs are stable. WBC getting better Tolerating oral feeding On examination: Temp Pulse Resp BP Pulse Ox 97 F L 92 H 22 117/69 99 07/23/16 08:00 07/23/16 11:00 07/23/16 11:00 07/23/16 11:00 07/23/16 11:00 chest good air entry bilaterally Regular heart sound Abdomen nontender Pedal edema noted 07/23/16 08:19 07/23/16 08:19 assessment/recommendation: 81 female history of seizure disorder, hypertension, fluid overload status now, complicated because of sepsis, C. difficile colitis, respiratory failure Improving at this time. Reduce her Lasix Continue the current treatment Objective - Vital Signs/Intake and Output Vital Signs (last 24 hours): Temp Pulse Resp BP Pulse Ox 97 F L 92 H 22 117/69 99 07/23/16 08:00 07/23/16 11:00 07/23/16 11:00 07/23/16 11:00 07/23/16 11:00 Intake and Output: 07/23/16 07/23/16 06:59 18:59 Intake Total 480 710 Output Total 725 265 Balance -245 445 - Medications Medications: Current Medications Acetaminophen (Tylenol 325mg Tab) 650 mg PO Q4 PRN PRN Reason: Fever >100.4 F Last Admin: 07/15/16 09:14 Dose: 650 mg Famotidine (Pepcid) 20 mg IVP Q12 [facility] Last Admin: 07/23/16 09:25 Dose: 20 mg Furosemide (Lasix) 40 mg IVP DAILY [facility] Heparin Sodium (Porcine) (Heparin) 5,000 units SC Q12 [facility] Last Admin: 07/23/16 09:24 Dose: 5,000 units Metronidazole (Flagyl) 100 mls @ 100 mls/hr IVPB Q8 [facility] Last Admin: 07/23/16 06:00 Dose: 100 mls/hr Rifaximin (Xifaxan) 550 mg PO BID [facility] Last Admin: 07/23/16 09:26 Dose: 550 mg Saccharomyces Boulardii (Florastor) 250 mg PO TID [facility] Last Admin: 07/23/16 09:24 Dose: 250 mg Vancomycin HCl (Vancocin (Oral Or Rectal Use)) 500 mg PO QID [facility] Last Admin: 07/23/16 09:27 Dose: 500 mg - Labs Labs: 07/23/16 08:19 07/23/16 08:19 PT 14.8 SECONDS (9.7-12.2) H 07/14/16 01:01 INR 1.3 07/14/16 01:01 APTT 37 SECONDS (21-34) H 07/14/16 01:01
--- NOTE | 2016-07-23 16:06 | CP.PCM.PN ---
Subjective - Date & Time of Evaluation Date of Evaluation: 07/23/16 Time of Evaluation: 15:40 - Subjective Subjective: F/U colitis. More alert. Feeling better. More diiarrhea today. Denies RB, melena, fever, chills, abdom pain, SZ, CP{, SOB, hematuria, hemoptysis. Objective - Vital Signs/Intake and Output Vital Signs (last 24 hours): Temp Pulse Resp BP Pulse Ox 97.1 F L 102 H 25 H 120/89 97 07/23/16 12:00 07/23/16 14:00 07/23/16 14:00 07/23/16 14:00 07/23/16 14:00 Intake and Output: 07/23/16 07/23/16 06:59 18:59 Intake Total 480 1230 Output Total 725 1300 Balance -245 -70 - Medications Medications: Current Medications Acetaminophen (Tylenol 325mg Tab) 650 mg PO Q4 PRN PRN Reason: Fever >100.4 F Last Admin: 07/15/16 09:14 Dose: 650 mg Famotidine (Pepcid) 20 mg IVP Q12 [facility] Last Admin: 07/23/16 09:25 Dose: 20 mg Furosemide (Lasix) 40 mg IVP DAILY [facility] Heparin Sodium (Porcine) (Heparin) 5,000 units SC Q12 [facility] Last Admin: 07/23/16 09:24 Dose: 5,000 units Metronidazole (Flagyl) 100 mls @ 100 mls/hr IVPB Q8 [facility] Last Admin: 07/23/16 13:13 Dose: 100 mls/hr Rifaximin (Xifaxan) 550 mg PO BID [facility] Last Admin: 07/23/16 09:26 Dose: 550 mg Saccharomyces Boulardii (Florastor) 250 mg PO TID [facility] Last Admin: 07/23/16 13:34 Dose: 250 mg Vancomycin HCl (Vancocin (Oral Or Rectal Use)) 500 mg PO QID [facility] Last Admin: 07/23/16 13:34 Dose: 500 mg - Labs Labs: 07/23/16 08:19 07/23/16 08:19 PT 14.8 SECONDS (9.7-12.2) H 07/14/16 01:01 INR 1.3 07/14/16 01:01 APTT 37 SECONDS (21-34) H 07/14/16 01:01 - Constitutional Appears: Non-toxic - Respiratory Exam Respiratory Exam: Clear to Ausculation Bilateral - Cardiovascular Exam Cardiovascular Exam: RRR - GI/Abdominal Exam GI & Abdominal Exam: Soft, Normal Bowel Sounds. absent: Tenderness - Extremities Exam Extremities Exam: Pedal Edema - Neurological Exam Neurological Exam: Alert, Awake, Oriented x3 Assessment and Plan (1) Acute respiratory failure Assessment & Plan: Better Status: Acute (2) Sepsis Assessment & Plan: wbc improving Status: Acute (3) Abdominal pain Assessment & Plan: colitis. c diff. Improving Status: Acute (4) GERD (gastroesophageal reflux disease) Status: Suspected (5) Colitis Assessment & Plan: c diff- improving. WBC improving Status: Acute (6) Diarrhea Status: Acute
--- NOTE | 2016-07-23 18:05 | CP.CCUPN ---
<Jaspreet Pedro - Last Filed: 07/23/16 18:22> CCU Subjective - Physician Review Subjective (Free Text): 07/15/16 17:58 Patient seen at bedside and is in no acute distress. Patient is intubated Vent settings ( FiO2 50% RR 14 PEEP 5 TV 500). Isolation precautions in place due to c. diff colitis findings. Patient cannot comply to an ROS at this time due to intubation and sedation. Family bedside and informed of management.. 07/16/16 12:11 Patient seen at beside and is in no acute distress. Patient was placed on a trial of CPAP with PS 10 and PEEP of 5. Patient tolerated CPAP well. Patient was extubated at 12pm with a follow up ABG at 1 pm. Patient remains on 8 mcg/ min of levophed. No ROS obtained at this time secondary to somnolence. 07/19/16 15:02 Pt seen and examined in no acute distress. Vitals stable. Unable to obtain ROS at initial time of evaluation because patient was still intubated. Patient 07/20/16 14:22 Patient seen and examined in no acute distress. Patient was extubated yesterday and on 3 L nc cannula satting well. Nursing reports no acute events overnight. Patient OOB to chair and responding well to questions. Patient still has diarrhea, which has been worse since after enema. Patient denies subjective fevers or chills, nausea, vomiting, constipation, paresthesias or headaches at this time. 07/22/16 08:59 Pt seen and examined in no acute distress. Patient currently on BiPAP. Patient states that she became short of breath last night. She felt very uncomfortable and nursing was alerted. Furnace Puncher bedside stated that patient's legs appeared very swollen yesterday; decreasing considerably today. Patient admits to some diarrhea. She denied any chest pain, palpitations, current dyspnea, subjective fevers or chills, nausea, vomiting or constipation at this time. 07/23/16 18:05 Pt seen and examined in no acute distress. Patient is saturating well at 99% on 3 L NC. Earlier in the morning, patient was breathing at a rate of 27, but this later decreased to a rate of 20. PICC line consent was obtained during morning rounds. Patient's questions and concerns were addressed. Patient tolerated her breakfast without complaints. Patient had another episode of diarrhea. Patient denies chest pain, palpitations, current dyspnea, subjective fevers or chills, nausea, vomiting or constipation at this time. 07/23/16 18:30 CCU Objective - Vital Signs / Intake & Output Vital Signs (Last 4 hours): Vital Signs Temp Pulse Resp BP Pulse Ox 07/23/16 17:00 98 H 21 110/56 L 99 07/23/16 16:00 99 F 101 H 24 106/44 L 97 07/23/16 15:00 100 H 24 106/44 L 97 Intake and Output (Last 8hrs): Intake & Output 07/23/16 07/23/16 07/23/16 06:59 14:59 22:59 Intake Total 0 1130 100 Output Total 530 1000 650 Balance -530 130 -550 Weight 211 lb 10.3 oz Intake: Intake, IV Amount 200 Right Medial Port 200 Internal Jugular Oral 0 930 100 Output: Urine 530 1000 650 Urethral (Kowalski) 530 1000 650 Other: # Bowel Movements 1 1 - Physical Exam Head: Positive for: Atraumatic, Normocephalic Pupils: Positive for: PERRL Extroacular Muscles: Positive for: EOMI Conjunctiva: Positive for: Normal Ears: Positive for: Normal Mouth: Positive for: Moist Mucous Membranes Respiratory/Chest: Positive for: Clear to Auscultation. Negative for: Wheezes Cardiovascular: Positive for: Regular Rate and Rhythm, Normal S1, S2 Abdomen: Positive for: Normal Bowel Sounds. Negative for: Tenderness, Peritoneal Signs, Guarding Upper Extremity: Positive for: NORMAL PULSES Lower Extremity: Negative for: Edema Neurological: Positive for: CN II-XII Intact, Speech Normal Skin: Positive for: Warm, Dry. Negative for: Rashes Psychiatric: Positive for: Oriented x 3, Normal Insight, Normal Concentration, Normal Affect, Normal Mood. Negative for: Alert - Medications Active Medications: Active Medications Generic Name Dose Route Start Last Admin Trade Name Freq PRN Reason Stop Dose Admin Acetaminophen 650 mg 07/14/16 04:18 07/15/16 09:14 Tylenol 325mg Tab PO 650 mg Q4 PRN Administration Fever >100.4 F Famotidine 20 mg 07/14/16 10:00 07/23/16 09:25 Pepcid IVP 20 mg Q12 [facility] Administration Furosemide 40 mg 07/24/16 10:00 Lasix IVP DAILY [facility] Heparin Sodium (Porcine) 5,000 units 07/18/16 22:00 07/23/16 09:24 Heparin SC 5,000 units Q12 [facility] Administration Metronidazole 100 mls @ 100 mls/hr 07/14/16 06:45 07/23/16 13:13 Flagyl IVPB 100 mls/hr Q8 [facility] Administration Rifaximin 550 mg 07/16/16 10:45 07/23/16 17:33 Xifaxan PO 550 mg BID [facility] Administration Saccharomyces Boulardii 250 mg 07/21/16 10:00 07/23/16 17:32 Florastor PO 250 mg TID [facility] Administration Vancomycin HCl 500 mg 07/14/16 10:00 07/23/16 17:33 Vancocin (Oral Or Rectal Use) PO 500 mg QID [facility] Administration - Patient Studies Lab Studies: Microbiology Studies 07/21/16 20:42 MRSA Culture (Admit) - Final Naris MRSA NOT DETECTED Lab Studies 07/23/16 Range/Units 08:19 WBC 23.6 H (4.8-10.8) K/uL RBC 4.34 (3.80-5.20) Mil/uL Hgb 11.6 (11.0-16.0) g/dL Hct 36.2 (34.0-47.0) % MCV 83.5 (81.0-99.0) fL MCH 26.7 L (27.0-31.0) pg MCHC 31.9 L (33.0-37.0) g/dL RDW 15.4 H (11.5-14.5) % Plt Count 442 H (130-400) K/uL MPV 7.6 (7.2-11.7) fL Neut % (Auto) 75.6 H (50.0-75.0) % Lymph % (Auto) 16.0 L (20.0-40.0) % Gregory % (Auto) 7.1 (0.0-10.0) % Eos % (Auto) 1.0 (0.0-4.0) % Baso % (Auto) 0.3 (0.0-2.0) % Neut # 17.8 H (1.8-7.0) K/uL Lymph # 3.8 (1.0-4.3) K/uL Gregory # 1.7 H (0.0-0.8) K/uL Eos # 0.2 (0.0-0.7) K/uL Baso # 0.1 (0.0-0.2) K/uL Neutrophils % (Manual) 64 (50-75) % Band Neutrophils % 8 H (0-2) % Lymphocytes % (Manual) 18 L (20-40) % Reactive Lymphs % 2 H (0-0) % Monocytes % (Manual) 4 (0-10) % Metamyelocytes % 3 H (0-0) % Myelocytes % 1 H (0-0) % Platelet Estimate Slightly increased H (NORMAL) Anisocytosis (manual) Slight Sodium 131 L (132-148) mmol/L Potassium 3.6 (3.6-5.2) mmol/L Chloride 99 (98-107) mmol/L Carbon Dioxide 22 (22-30) mmol/L Anion Gap 14 (10-20) BUN 9 (7-17) mg/dL Creatinine 0.5 L (0.7-1.2) MG/DL Est GFR ( Amer) > 60 Est GFR (Non-Af Amer) > 60 Random Glucose 84 (65-105) mg/dL Calcium 7.3 L (8.6-10.4) mg/dl Phosphorus 3.7 (2.5-4.5) mg/dL Magnesium 1.5 L (1.6-2.3) mg/dL Total Bilirubin 0.2 (0.2-1.3) mg/dL AST 45 H D (14-36) U/L ALT 20 (9-52) U/L Alkaline Phosphatase 41 (38-126) U/L Total Protein 4.7 L (6.3-8.3) g/dL Albumin 2.0 L (3.5-5.0) g/dL Globulin 2.7 (2.2-3.9) gm/dL Albumin/Globulin Ratio 0.8 L (1.0-2.1) Laboratory Results - last 24 hr 07/23/16 08:19 WBC 23.6 H RBC 4.34 Hgb 11.6 Hct 36.2 MCV 83.5 MCH 26.7 L MCHC 31.9 L RDW 15.4 H Plt Count 442 H MPV 7.6 Neut % (Auto) 75.6 H Lymph % (Auto) 16.0 L Gregory % (Auto) 7.1 Eos % (Auto) 1.0 Baso % (Auto) 0.3 Neut # 17.8 H Lymph # 3.8 Gregory # 1.7 H Eos # 0.2 Baso # 0.1 Neutrophils % (Manual) 64 Band Neutrophils % 8 H Lymphocytes % (Manual) 18 L Reactive Lymphs % 2 H Monocytes % (Manual) 4 Metamyelocytes % 3 H Myelocytes % 1 H Platelet Estimate Slightly increased H Anisocytosis (manual) Slight Sodium 131 L Potassium 3.6 Chloride 99 Carbon Dioxide 22 Anion Gap 14 BUN 9 Creatinine 0.5 L Est GFR ( Amer) > 60 Est GFR (Non-Af Amer) > 60 Random Glucose 84 Calcium 7.3 L Phosphorus 3.7 Magnesium 1.5 L Total Bilirubin 0.2 AST 45 H D ALT 20 Alkaline Phosphatase 41 Total Protein 4.7 L Albumin 2.0 L Globulin 2.7 Albumin/Globulin Ratio 0.8 L Review of Systems - Review of Systems Review of Systems: refer to subjective Critical Care Progress Note - Nutrition Nutrition: Nutrition Category Date Time Status Pureed [Dysphagia/Modified Consistency Diet] [DIET] Diets 07/19/16 Breakfast Active Assessment/Plan - Assessment and Plan (Free Text) Assessment: 81 year old female with a past medical history of HTN, arthritis, anxiety, seizures, back problems and gall bladder disease presents with fever and C-diff colitis. Patient was placed on antibiotic therapy, was transferred to the floor , but brought back to the ICU for further monitoring after a subsequent episode of respiratory distress requiring BiPAP and close monitr. The plan is to continue diuretics for one more day and to add patient's home seizure medications to be administered during the patient's stay at the hospital. Plan: Neuro: Neuro check q4 07/14 CT Head: no definite acute intracranial abnormality . Midazolam 1 mg IV Q6H PRN Hx of seizures, restart anti-epileptic agents Cardio: Intermittent tachycardia Maintain systolic BP >110 Furosemide 40 mg IVP daily Pulm: Maintain O2 Sat >92% 07/22 3L NC Imagin/24 CXR: interval introduction of right-sided PICC with distal tip of catheter overlying projection of SVC/right atrial junction. Hazy opacity in the right base noted again. Refer to full report Endo: Maintain euglycemia GI: C. diff colitis Monitor BM Pureed - Tolerated diet 07/19 XRAY Abdomen: distal air-filled loops of colon consistent with colitis 07/14 CT Abdomen/Pelvis: Colitis, indeterminate splenic lesion Saccharomyces boulardii 250 mg PO TID [facility] : I/Os 1540/2470 = - 930cc Monitor I/Os Kowalski is in place Maintain Kowalski care Renal: BUN/Cr: 9/0.5 (11/0.5 > 9/0.5) Monitor I/Os Daily BMP Hypomagnesemia repleted Total protein 4.7 (4.3>4.7) Albumin 2.0 (2.0 > 2.0) Heme: H&H- 11.6/36.2 (11.7/36.6 > 11.6/36.2) Monitor CBC ID: C diff colitis Contact precautions WBC: 23.7 ( trending down) Neutrophils: 64 Bands: 8 (37>26>23>18>12>21>13>8) ( trending down) Clinically appears improved 07/15: C-diff toxin Positive Daily CBC Acetaminophen 650 mg PO Q4 PRN Fever >100.4 F Flagyl 100 cc @ 100 cc/hr IVPB Q8 [facility] Vancomycin 500 mg PO QID Rifaximin 550 mg PO BID [facility] Prophylaxis: GI: Pepcid 20 mg IVP Q12 DVT: Heparin 5,000 units SC Q8 <Bladimir Levy - Last Filed: 07/23/16 18:45> CCU Objective - Vital Signs / Intake & Output Vital Signs (Last 4 hours): Vital Signs Temp Pulse Resp BP Pulse Ox 07/23/16 17:00 98 H 21 110/56 L 99 07/23/16 16:00 99 F 101 H 24 106/44 L 97 07/23/16 15:00 100 H 24 106/44 L 97 Intake and Output (Last 8hrs): Intake & Output 07/23/16 07/23/16 07/23/16 06:59 14:59 22:59 Intake Total 0 1130 100 Output Total 530 1000 650 Balance -530 130 -550 Weight 211 lb 10.3 oz Intake: Intake, IV Amount 200 Right Medial Port 200 Internal Jugular Oral 0 930 100 Output: Urine 530 1000 650 Urethral (Kowalski) 530 1000 650 Other: # Bowel Movements 1 1 - Medications Active Medications: Active Medications Generic Name Dose Route Start Last Admin Trade Name Freq PRN Reason Stop Dose Admin Acetaminophen 650 mg 07/14/16 04:18 07/15/16 09:14 Tylenol 325mg Tab PO 650 mg Q4 PRN Administration Fever >100.4 F Divalproex Sodium 250 mg 07/24/16 10:00 Depakote Er PO DAILY [facility] Divalproex Sodium 500 mg 07/23/16 22:00 Depakote Er PO HS [facility] Famotidine 20 mg 07/14/16 10:00 07/23/16 09:25 Pepcid IVP 20 mg Q12 [facility] Administration Furosemide 40 mg 07/24/16 10:00 Lasix IVP DAILY [facility] Heparin Sodium (Porcine) 5,000 units 07/18/16 22:00 07/23/16 09:24 Heparin SC 5,000 units Q12 [facility] Administration Metronidazole 100 mls @ 100 mls/hr 07/14/16 06:45 07/23/16 13:13 Flagyl IVPB 100 mls/hr Q8 [facility] Administration Lamotrigine 50 mg 07/24/16 10:00 Lamictal PO DAILY [facility] Rifaximin 550 mg 07/16/16 10:45 07/23/16 17:33 Xifaxan PO 550 mg BID [facility] Administration Saccharomyces Boulardii 250 mg 07/21/16 10:00 07/23/16 17:32 Florastor PO 250 mg TID [facility] Administration Vancomycin HCl 500 mg 07/14/16 10:00 07/23/16 17:33 Vancocin (Oral Or Rectal Use) PO 500 mg QID [facility] Administration - Patient Studies Lab Studies: Microbiology Studies 07/21/16 20:42 MRSA Culture (Admit) - Final [facility] MRSA NOT DETECTED Lab Studies 07/23/16 Range/Units 08:19 WBC 23.6 H (4.8-10.8) K/uL RBC 4.34 (3.80-5.20) Mil/uL Hgb 11.6 (11.0-16.0) g/dL Hct 36.2 (34.0-47.0) % MCV 83.5 (81.0-99.0) fL MCH 26.7 L (27.0-31.0) pg MCHC 31.9 L (33.0-37.0) g/dL RDW 15.4 H (11.5-14.5) % Plt Count 442 H (130-400) K/uL MPV 7.6 (7.2-11.7) fL Neut % (Auto) 75.6 H (50.0-75.0) % Lymph % (Auto) 16.0 L (20.0-40.0) % Gregory % (Auto) 7.1 (0.0-10.0) % Eos % (Auto) 1.0 (0.0-4.0) % Baso % (Auto) 0.3 (0.0-2.0) % Neut # 17.8 H (1.8-7.0) K/uL Lymph # 3.8 (1.0-4.3) K/uL Gregory # 1.7 H (0.0-0.8) K/uL Eos # 0.2 (0.0-0.7) K/uL Baso # 0.1 (0.0-0.2) K/uL Neutrophils % (Manual) 64 (50-75) % Band Neutrophils % 8 H (0-2) % Lymphocytes % (Manual) 18 L (20-40) % Reactive Lymphs % 2 H (0-0) % Monocytes % (Manual) 4 (0-10) % Metamyelocytes % 3 H (0-0) % Myelocytes % 1 H (0-0) % Platelet Estimate Slightly increased H (NORMAL) Anisocytosis (manual) Slight Sodium 131 L (132-148) mmol/L Potassium 3.6 (3.6-5.2) mmol/L Chloride 99 (98-107) mmol/L Carbon Dioxide 22 (22-30) mmol/L Anion Gap 14 (10-20) BUN 9 (7-17) mg/dL Creatinine 0.5 L (0.7-1.2) MG/DL Est GFR ( Amer) > 60 Est GFR (Non-Af Amer) > 60 Random Glucose 84 (65-105) mg/dL Calcium 7.3 L (8.6-10.4) mg/dl Phosphorus 3.7 (2.5-4.5) mg/dL Magnesium 1.5 L (1.6-2.3) mg/dL Total Bilirubin 0.2 (0.2-1.3) mg/dL AST 45 H D (14-36) U/L ALT 20 (9-52) U/L Alkaline Phosphatase 41 (38-126) U/L Total Protein 4.7 L (6.3-8.3) g/dL Albumin 2.0 L (3.5-5.0) g/dL Globulin 2.7 (2.2-3.9) gm/dL Albumin/Globulin Ratio 0.8 L (1.0-2.1) Laboratory Results - last 24 hr 07/23/16 08:19 WBC 23.6 H RBC 4.34 Hgb 11.6 Hct 36.2 MCV 83.5 MCH 26.7 L MCHC 31.9 L RDW 15.4 H Plt Count 442 H MPV 7.6 Neut % (Auto) 75.6 H Lymph % (Auto) 16.0 L Gregory % (Auto) 7.1 Eos % (Auto) 1.0 Baso % (Auto) 0.3 Neut # 17.8 H Lymph # 3.8 Gregory # 1.7 H Eos # 0.2 Baso # 0.1 Neutrophils % (Manual) 64 Band Neutrophils % 8 H Lymphocytes % (Manual) 18 L Reactive Lymphs % 2 H Monocytes % (Manual) 4 Metamyelocytes % 3 H Myelocytes % 1 H Platelet Estimate Slightly increased H Anisocytosis (manual) Slight Sodium 131 L Potassium 3.6 Chloride 99 Carbon Dioxide 22 Anion Gap 14 BUN 9 Creatinine 0.5 L Est GFR ( Amer) > 60 Est GFR (Non-Af Amer) > 60 Random Glucose 84 Calcium 7.3 L Phosphorus 3.7 Magnesium 1.5 L Total Bilirubin 0.2 AST 45 H D ALT 20 Alkaline Phosphatase 41 Total Protein 4.7 L Albumin 2.0 L Globulin 2.7 Albumin/Globulin Ratio 0.8 L Critical Care Progress Note - Nutrition Nutrition: Nutrition Category Date Time Status Pureed [Dysphagia/Modified Consistency Diet] [DIET] Diets 07/19/16 Breakfast Active Assessment/Plan (1) C. difficile colitis Current Visit: Yes Status: Acute Attending/Attestation - Attestation I have personally seen and examined this patient.: Yes I have fully participated in the care of the patient.: Yes I have reviewed all pertinent clinical information: Yes Notes (Text): 07/23/16 18:44 I have seen and examined the patient. Medical records, lab studies, and imaging were reviewed by me and a management plan was formulated on multidisciplinary rounds with resident Dr. Pedro. I agree with their above documented assessment and plan. Clinically stable for downgrade to the floors. Critical Care Time 35 minutes. Multi-disciplinary rounds were performed with house staff, nursing, speech therapy, respiratory therapy, pharmacy and nutrition with integrated input from the primary team/attending and other consulting services. The documented time is cumulative and includes review of patient data/exams/labs/chart review and examination of the patient on rounds and throughout the day; time is exclusive of any procedures or teaching time.
[2016-07-23] MEDS ORDERED: Divalproex 500 mg ER Tab PO SCH (22:00)
--- NOTE | 2016-07-23 23:59 | CP.PCM.PN ---
Subjective - Date & Time of Evaluation Date of Evaluation: 07/23/16 Time of Evaluation: 13:08 - Subjective Subjective: notes done Objective - Vital Signs/Intake and Output Vital Signs (last 24 hours): Temp Pulse Resp BP Pulse Ox 99 F 101 H 26 H 115/55 L 99 07/23/16 16:00 07/23/16 19:00 07/23/16 19:00 07/23/16 19:00 07/23/16 19:00 Intake and Output: 07/23/16 07/24/16 18:59 06:59 Intake Total 1430 150 Output Total 2050 375 Balance -620 -225 - Medications Medications: Current Medications Acetaminophen (Tylenol 325mg Tab) 650 mg PO Q4 PRN PRN Reason: Fever >100.4 F Last Admin: 07/15/16 09:14 Dose: 650 mg Divalproex Sodium (Depakote Er) 250 mg PO DAILY [facility] Divalproex Sodium (Depakote Er) 500 mg PO HS [facility] Last Admin: 07/23/16 23:28 Dose: Not Given Famotidine (Pepcid) 20 mg IVP Q12 [facility] Last Admin: 07/23/16 22:01 Dose: 20 mg Furosemide (Lasix) 40 mg IVP DAILY [facility] Heparin Sodium (Porcine) (Heparin) 5,000 units SC Q12 [facility] Last Admin: 07/23/16 22:00 Dose: 5,000 units Metronidazole (Flagyl) 100 mls @ 100 mls/hr IVPB Q8 [facility] Last Admin: 07/23/16 22:02 Dose: 100 mls/hr Levetiracetam 500 mg/ Dextrose 105 mls @ 420 mls/hr IVPB Q12H [facility] Lamotrigine (Lamictal) 50 mg PO DAILY [facility] Rifaximin (Xifaxan) 550 mg PO BID [facility] Last Admin: 07/23/16 17:33 Dose: 550 mg Saccharomyces Boulardii (Florastor) 250 mg PO TID [facility] Last Admin: 07/23/16 17:32 Dose: 250 mg Vancomycin HCl (Vancocin (Oral Or Rectal Use)) 500 mg PO QID [facility] Last Admin: 07/23/16 23:00 Dose: 500 mg - Labs Labs: 07/23/16 08:19 07/23/16 08:19 PT 14.8 SECONDS (9.7-12.2) H 07/14/16 01:01 INR 1.3 07/14/16 01:01 APTT 37 SECONDS (21-34) H 07/14/16 01:01
[2016-07-24 00:22] LABS: MAGNESIUM 1.5 mg/dL (1.6-2.3); PHOSPHOROUS 3.8 mg/dL (2.5-4.5)
[2016-07-24] MEDS: metroNIDAZOLE IV 500 mg/100 ml 100 ML IVPB SCH ×3 (05:38→21:31)
[2016-07-24 07:04] LABS: CHLORIDE 96 mmol/L (98-107); SODIUM 130 mmol/L (132-148)
[2016-07-24 07:05] LABS: POTASSIUM 3.8 mmol/L (3.6-5.2)
[2016-07-24 07:06] LABS: GFR AFRICAN-AMERICAN > 60
[2016-07-24 07:07] LABS: ALB/GLOB RATIO 0.8 (1.0-2.1); ALKALINE PHOSPHATASE 34 U/L (38-126); ALT/SGPT 25 U/L (9-52); AST/SGOT 33 U/L (14-36); BILIRUBIN,TOTAL 0.6 mg/dL (0.2-1.3); BLOOD UREA NITROGEN 9 mg/dL (7-17); CARBON DIOXIDE 24 mmol/L (22-30); GLUCOSE,RANDOM 69 mg/dL (65-105); PHOSPHOROUS 3.9 mg/dL (2.5-4.5); TOTAL PROTEIN 4.7 g/dL (6.3-8.3)
[2016-07-24 07:08] LABS: CALCIUM 7.1 mg/dl (8.6-10.4); MAGNESIUM 1.5 mg/dL (1.6-2.3)
[2016-07-24 07:56] LABS: BASO # 0.1 K/uL (0.0-0.2); BASO % 0.6 % (0.0-2.0); EOS # 0.1 K/uL (0.0-0.7); EOS % 0.5 % (0.0-4.0); HEMATOCRIT 33.3 % (34.0-47.0); LYMPH # 2.4 K/uL (1.0-4.3); LYMPH % 14.3 % (20.0-40.0); MEAN CELL VOLUME 85.2 fL (81.0-99.0); MEAN CORPUSCULAR HEMOGLOBIN 26.9 pg (27.0-31.0); MEAN CORPUSCULAR HGB CONC 31.6 g/dL (33.0-37.0); MEAN PLATELET VOLUME 7.9 fL (7.2-11.7); MONO % 6.1 % (0.0-10.0); RED CELL DISTRIBUTION WIDTH 15.4 % (11.5-14.5); WHITE BLOOD COUNT 16.9 K/uL (4.8-10.8)
[2016-07-24] MEDS: Saccharomyces Boulardi 250 mg Cap PO SCH ×3 (10:33→17:48)
[2016-07-24] MEDS: Vancomycin 125 MG/5 ML SOLN (ORAL/RECTAL) PO SCH ×4 (10:35→21:31)
--- NOTE | 2016-07-24 11:43 | RAD ---
HISTORY: prior intubation, resp distress COMPARISON: 07/23/2016 FINDINGS: LUNGS: Hazy opacity at both lung bases, right greater than left. This may be due to alveolar opacity or pleural effusion common dependent. PLEURA: Small bilateral pleural effusions. CARDIOVASCULAR: Removal of right IJ central venous catheter. OSSEOUS STRUCTURES: No significant abnormalities. VISUALIZED UPPER ABDOMEN: Normal. OTHER FINDINGS: None. IMPRESSION: Hazy opacity at lung bases may be due to alveolar opacity or dependent pleural fluid. Bilateral pleural effusion is noted. Status post removal of right IJ central venous catheter.
--- NOTE | 2016-07-24 12:38 | CP.PCM.PN ---
Subjective - Date & Time of Evaluation Date of Evaluation: 07/24/16 Time of Evaluation: 12:31 - Subjective Subjective: INFECTIOUS DISEAE PROGRESS NOTE Candis VERA MD, FACP 07/23 & 07/24/2016 ICU/CCU #6 PATIENT RESPONDED TO IV LASIX AND FLUID MANAGEMENT EXTUBATED A FEW DAYS AGO AND BREATHI G BETTER, BUT STILL WITH 3= oitting edema bilateral legs PT WAS STABLE AROUND 7:30 WHEN EVALAUTED. THIS MORNING HER BROTHER STATES THAT LAST NIGHT, AROUND 10:00 PM SHE DEVELOPED A SEIZURE, ON REVIEW HER CHRONIC SEIZURE MEDS WHERE NOT TOTALLY CORRECTED. ERGO, NOT TO MENTION THEREFORE AND HENCE, I HAVE INFORMED PHARMACY OF HER MEDS PER HER [facility] NEUROLOGIST: 1) DEPAKOTE 250 AM AND DEPAKOTE 500 MG PO EVENING, ALSO 2) LAMICTAL 50MG PO AM DAILY, AND 3) MYSOLINE 50MG PO AM DAILY AND 75 MG PO EVENING- THESE ORDERS ARE CURRENT PER DR FILIBERTO GRIFFITHS [phone]. Objective - Vital Signs/Intake and Output Vital Signs (last 24 hours): Temp Pulse Resp BP Pulse Ox 98 F 82 17 113/52 L 100 07/24/16 08:00 07/24/16 12:01 07/24/16 12:01 07/24/16 12:01 07/24/16 12:01 Intake and Output: 07/24/16 07/24/16 06:59 18:59 Intake Total 770 120 Output Total 1650 Balance -880 120 - Medications Medications: Current Medications Acetaminophen (Tylenol 325mg Tab) 650 mg PO Q4 PRN PRN Reason: Fever >100.4 F Last Admin: 07/15/16 09:14 Dose: 650 mg Divalproex Sodium (Depakote Er) 500 mg PO HS [facility] Famotidine (Pepcid) 20 mg IVP Q12 [facility] Last Admin: 07/24/16 10:34 Dose: 20 mg Furosemide (Lasix) 40 mg IVP DAILY [facility] Last Admin: 07/24/16 10:34 Dose: 40 mg Heparin Sodium (Porcine) (Heparin) 5,000 units SC Q12 [facility] Last Admin: 07/24/16 10:33 Dose: 5,000 units Metronidazole (Flagyl) 100 mls @ 100 mls/hr IVPB Q8 [facility] Last Admin: 07/24/16 05:38 Dose: 100 mls/hr Lamotrigine (Lamictal) 50 mg PO DAILY [facility] Last Admin: 07/24/16 10:35 Dose: 50 mg Primidone (Mysoline) 75 mg PO [facility] Rifaximin (Xifaxan) 550 mg PO BID [facility] Last Admin: 07/24/16 10:34 Dose: 550 mg Saccharomyces Boulardii (Florastor) 250 mg PO TID [facility] Last Admin: 07/24/16 10:33 Dose: 250 mg Vancomycin HCl (Vancocin (Oral Or Rectal Use)) 500 mg PO QID [facility] Last Admin: 07/24/16 10:35 Dose: 500 mg - Labs Labs: 07/24/16 07:45 07/24/16 06:46 PT 14.8 SECONDS (9.7-12.2) H 07/14/16 01:01 INR 1.3 07/14/16 01:01 APTT 37 SECONDS (21-34) H 07/14/16 01:01 - Constitutional Appears: Non-toxic, Older Than Stated Age, Chronically Ill, Other (APPEARS SEDATED) - Head Exam Head Exam: ATRAUMATIC - Eye Exam Eye Exam: Normal appearance - ENT Exam ENT Exam: Mucous Membranes Moist - Neck Exam Neck Exam: Normal Inspection - Respiratory Exam Respiratory Exam: Decreased Breath Sounds, NORMAL BREATHING PATTERN - Cardiovascular Exam Cardiovascular Exam: REGULAR RHYTHM - GI/Abdominal Exam GI & Abdominal Exam: Soft, Normal Bowel Sounds. absent: Tenderness, Hernia, Organomegaly, Rebound - Rectal Exam Rectal Exam: Deferred - Neurological Exam Neurological Exam: Alert, Awake - Psychiatric Exam Psychiatric exam: Normal Affect - Skin Skin Exam: Warm Assessment and Plan (1) C. difficile colitis Status: Acute (2) Acute respiratory failure Status: Acute (3) GERD (gastroesophageal reflux disease) Status: Suspected (4) Knee injury Status: Chronic (5) Sepsis Status: Acute (6) Bladder incontinence Status: Chronic (7) Abdominal pain Status: Acute (8) Seizure disorder Assessment & Plan: ADJUSTED HER MEDS. Status: Acute
--- NOTE | 2016-07-24 13:26 | CP.PCM.PN ---
Subjective - Date & Time of Evaluation Date of Evaluation: 07/24/16 Time of Evaluation: 13:24 - Subjective Subjective: Patient had a seizure yesterday. Today, she is complaining of fatigue. She continues to have diarrhea, twice so far today. She denies having nausea or vomiting. The WBC count is down to 16.9. Objective - Vital Signs/Intake and Output Vital Signs (last 24 hours): Temp Pulse Resp BP Pulse Ox 98.1 F 93 H 24 106/56 L 97 07/24/16 12:00 07/24/16 12:35 07/24/16 12:35 07/24/16 12:35 07/24/16 12:35 Intake and Output: 07/24/16 07/24/16 06:59 18:59 Intake Total 770 1000 Output Total 1650 1200 Balance -880 -200 - Medications Medications: Current Medications Acetaminophen (Tylenol 325mg Tab) 650 mg PO Q4 PRN PRN Reason: Fever >100.4 F Last Admin: 07/15/16 09:14 Dose: 650 mg Divalproex Sodium (Depakote Er) 500 mg PO HS [facility] Divalproex Sodium (Depakote Er) 250 mg PO DAILY [facility] Famotidine (Pepcid) 20 mg IVP Q12 [facility] Last Admin: 07/24/16 10:34 Dose: 20 mg Furosemide (Lasix) 40 mg IVP DAILY [facility] Last Admin: 07/24/16 10:34 Dose: 40 mg Heparin Sodium (Porcine) (Heparin) 5,000 units SC Q12 [facility] Last Admin: 07/24/16 10:33 Dose: 5,000 units Metronidazole (Flagyl) 100 mls @ 100 mls/hr IVPB Q8 [facility] Last Admin: 07/24/16 05:38 Dose: 100 mls/hr Lamotrigine (Lamictal) 50 mg PO DAILY [facility] Last Admin: 07/24/16 10:35 Dose: 50 mg Primidone (Mysoline) 75 mg PO HS [facility] Primidone (Mysoline) 50 mg PO DAILY [facility] Rifaximin (Xifaxan) 550 mg PO BID [facility] Last Admin: 07/24/16 10:34 Dose: 550 mg Saccharomyces Boulardii (Florastor) 250 mg PO TID [facility] Last Admin: 07/24/16 10:33 Dose: 250 mg Vancomycin HCl (Vancocin (Oral Or Rectal Use)) 500 mg PO QID [facility] Last Admin: 07/24/16 10:35 Dose: 500 mg - Labs Labs: 07/24/16 07:45 07/24/16 06:46 PT 14.8 SECONDS (9.7-12.2) H 07/14/16 01:01 INR 1.3 07/14/16 01:01 APTT 37 SECONDS (21-34) H 07/14/16 01:01 - Constitutional Appears: No Acute Distress - Head Exam Head Exam: ATRAUMATIC, NORMOCEPHALIC - Eye Exam Eye Exam: EOMI, PERRL - Neck Exam Neck Exam: absent: Lymphadenopathy, Thyromegaly - Respiratory Exam Respiratory Exam: NORMAL BREATHING PATTERN. absent: Rales, Rhonchi, Wheezes - Cardiovascular Exam Cardiovascular Exam: REGULAR RHYTHM, +S1, +S2. absent: Gallop, Rubs, Murmur - GI/Abdominal Exam GI & Abdominal Exam: Distended, Soft, Normal Bowel Sounds. absent: Tenderness, Mass, Organomegaly - Rectal Exam Rectal Exam: Deferred - Extremities Exam Extremities Exam: absent: Calf Tenderness Assessment and Plan (1) C. difficile colitis Assessment & Plan: The frequency of the diarrhea is improving, and the WBC count has fropped to 16, 900. Continue vancomycin. Status: Acute
--- NOTE | 2016-07-24 13:34 | CP.CCUPN ---
CCU Subjective - Physician Review Events Since Last Encounter (Free Text): 07/24/16 13:32 patient had a seizure episode last night, now clinically stable. CCU Objective - Vital Signs / Intake & Output Vital Signs (Last 4 hours): Vital Signs Temp Pulse Resp BP Pulse Ox 07/24/16 12:35 93 H 24 106/56 L 97 07/24/16 12:01 82 17 113/52 L 100 07/24/16 12:00 98.1 F 07/24/16 11:35 101 H 22 113/52 L 98 07/24/16 10:35 94 H 26 H 101/55 L 99 07/24/16 10:34 101/50 L 07/24/16 09:35 95 H 29 H 97/61 L 98 Intake and Output (Last 8hrs): Intake & Output 07/23/16 07/24/16 07/24/16 22:59 06:59 14:59 Intake Total 513 512 4726 Output Total 7690 522 6884 Balance -1005 -625 -200 Intake: Intake, IV Amount 100 200 400 Right PICC 100 200 400 Oral 670 100 600 Output: Urine 2056 525 2117 Urethral (Razo) 5200 108 3653 Other: # Bowel Movements 1 1 1 - Physical Exam Head: Positive for: Atraumatic, Normocephalic Pupils: Positive for: PERRL Extroacular Muscles: Positive for: EOMI Conjunctiva: Positive for: Normal Ears: Positive for: Normal Mouth: Positive for: Moist Mucous Membranes Respiratory/Chest: Positive for: Clear to Auscultation. Negative for: Wheezes Cardiovascular: Positive for: Regular Rate and Rhythm, Normal S1, S2 Abdomen: Positive for: Normal Bowel Sounds. Negative for: Tenderness, Peritoneal Signs, Guarding Upper Extremity: Positive for: NORMAL PULSES Lower Extremity: Negative for: Edema Neurological: Positive for: CN II-XII Intact, Speech Normal Skin: Positive for: Warm, Dry. Negative for: Rashes Psychiatric: Positive for: Oriented x 3, Normal Insight, Normal Concentration, Normal Affect, Normal Mood. Negative for: Alert - Medications Active Medications: Active Medications Generic Name Dose Route Start Last Admin Trade Name Freq PRN Reason Stop Dose Admin Acetaminophen 650 mg 07/14/16 04:18 07/15/16 09:14 Tylenol 325mg Tab PO 650 mg Q4 PRN Administration Fever >100.4 F Divalproex Sodium 500 mg 07/24/16 22:00 Depakote Er PO HS [facility] Divalproex Sodium 250 mg 07/25/16 10:00 Depakote Er PO DAILY [facility] Famotidine 20 mg 07/14/16 10:00 07/24/16 10:34 Pepcid IVP 20 mg Q12 [facility] Administration Furosemide 40 mg 07/24/16 10:00 07/24/16 10:34 Lasix IVP 40 mg DAILY [facility] Administration Heparin Sodium (Porcine) 5,000 units 07/18/16 22:00 07/24/16 10:33 Heparin SC 5,000 units Q12 [facility] Administration Metronidazole 100 mls @ 100 mls/hr 07/14/16 06:45 07/24/16 05:38 Flagyl IVPB 100 mls/hr Q8 [facility] Administration Lamotrigine 50 mg 07/24/16 10:00 07/24/16 10:35 Lamictal PO 50 mg DAILY [facility] Administration Primidone 75 mg 07/24/16 22:00 Mysoline PO HS [facility] Primidone 50 mg 07/25/16 10:00 Mysoline PO DAILY [facility] Rifaximin 550 mg 07/16/16 10:45 07/24/16 10:34 Xifaxan PO 550 mg BID [facility] Administration Saccharomyces Boulardii 250 mg 07/21/16 10:00 07/24/16 10:33 Florastor PO 250 mg TID [facility] Administration Vancomycin HCl 500 mg 07/14/16 10:00 07/24/16 10:35 Vancocin (Oral Or Rectal Use) PO 500 mg QID [facility] Administration - Patient Studies Lab Studies: Microbiology Studies 07/21/16 20:42 MRSA Culture (Admit) - Final Naris MRSA NOT DETECTED Lab Studies 07/24/16 07/24/16 07/24/16 Range/Units 09:45 07:45 06:46 WBC 16.9 H (4.8-10.8) K/uL RBC 3.92 (3.80-5.20) Mil/uL Hgb 10.5 L (11.0-16.0) g/dL Hct 33.3 L (34.0-47.0) % MCV 85.2 (81.0-99.0) fL MCH 26.9 L (27.0-31.0) pg MCHC 31.6 L (33.0-37.0) g/dL RDW 15.4 H (11.5-14.5) % Plt Count 330 D (130-400) K/uL MPV 7.9 (7.2-11.7) fL Neut % (Auto) 78.5 H (50.0-75.0) % Lymph % (Auto) 14.3 L (20.0-40.0) % [place] % (Auto) 6.1 (0.0-10.0) % Eos % (Auto) 0.5 (0.0-4.0) % Baso % (Auto) 0.6 (0.0-2.0) % Neut # 13.3 H (1.8-7.0) K/uL Lymph # 2.4 (1.0-4.3) K/uL [place] # 1.0 H (0.0-0.8) K/uL Eos # 0.1 (0.0-0.7) K/uL Baso # 0.1 (0.0-0.2) K/uL Sodium 130 L (132-148) mmol/L Potassium 3.8 (3.6-5.2) mmol/L Chloride 96 L (98-107) mmol/L Carbon Dioxide 24 (22-30) mmol/L Anion Gap 14 (10-20) BUN 9 (7-17) mg/dL Creatinine 0.4 L (0.7-1.2) MG/DL Est GFR ( Amer) > 60 Est GFR (Non-Af Amer) > 60 Random Glucose 69 (65-105) mg/dL Calcium 7.1 L (8.6-10.4) mg/dl Phosphorus 3.9 (2.5-4.5) mg/dL Magnesium 1.5 L (1.6-2.3) mg/dL Total Bilirubin 0.6 (0.2-1.3) mg/dL AST 33 (14-36) U/L ALT 25 (9-52) U/L Alkaline Phosphatase 34 L (38-126) U/L Total Protein 4.7 L (6.3-8.3) g/dL Albumin 2.1 L (3.5-5.0) g/dL Globulin 2.6 (2.2-3.9) gm/dL Albumin/Globulin Ratio 0.8 L (1.0-2.1) Valproic Acid < 10.0 L (50.0-100.0) ug/mL 07/23/16 Range/Units 23:57 WBC (4.8-10.8) K/uL RBC (3.80-5.20) Mil/uL Hgb (11.0-16.0) g/dL Hct (34.0-47.0) % MCV (81.0-99.0) fL MCH (27.0-31.0) pg MCHC (33.0-37.0) g/dL RDW (11.5-14.5) % Plt Count (130-400) K/uL MPV (7.2-11.7) fL Neut % (Auto) (50.0-75.0) % Lymph % (Auto) (20.0-40.0) % [place] % (Auto) (0.0-10.0) % Eos % (Auto) (0.0-4.0) % Baso % (Auto) (0.0-2.0) % Neut # (1.8-7.0) K/uL Lymph # (1.0-4.3) K/uL [place] # (0.0-0.8) K/uL Eos # (0.0-0.7) K/uL Baso # (0.0-0.2) K/uL Sodium (132-148) mmol/L Potassium (3.6-5.2) mmol/L Chloride (98-107) mmol/L Carbon Dioxide (22-30) mmol/L Anion Gap (10-20) BUN (7-17) mg/dL Creatinine (0.7-1.2) MG/DL Est GFR ( Amer) Est GFR (Non-Af Amer) Random Glucose (65-105) mg/dL Calcium (8.6-10.4) mg/dl Phosphorus 3.8 (2.5-4.5) mg/dL Magnesium 1.5 L (1.6-2.3) mg/dL Total Bilirubin (0.2-1.3) mg/dL AST (14-36) U/L ALT (9-52) U/L Alkaline Phosphatase (38-126) U/L Total Protein (6.3-8.3) g/dL Albumin (3.5-5.0) g/dL Globulin (2.2-3.9) gm/dL Albumin/Globulin Ratio (1.0-2.1) Valproic Acid (50.0-100.0) ug/mL Laboratory Results - last 24 hr 07/23/16 07/24/16 07/24/16 23:57 06:46 07:45 WBC 16.9 H RBC 3.92 Hgb 10.5 L Hct 33.3 L MCV 85.2 MCH 26.9 L MCHC 31.6 L RDW 15.4 H Plt Count 330 D MPV 7.9 Neut % (Auto) 78.5 H Lymph % (Auto) 14.3 L [place] % (Auto) 6.1 Eos % (Auto) 0.5 Baso % (Auto) 0.6 Neut # 13.3 H Lymph # 2.4 [place] # 1.0 H Eos # 0.1 Baso # 0.1 Sodium 130 L Potassium 3.8 Chloride 96 L Carbon Dioxide 24 Anion Gap 14 BUN 9 Creatinine 0.4 L Est GFR ( Amer) > 60 Est GFR (Non-Af Amer) > 60 Random Glucose 69 Calcium 7.1 L Phosphorus 3.8 3.9 Magnesium 1.5 L 1.5 L Total Bilirubin 0.6 AST 33 ALT 25 Alkaline Phosphatase 34 L Total Protein 4.7 L Albumin 2.1 L Globulin 2.6 Albumin/Globulin Ratio 0.8 L Valproic Acid 07/24/16 09:45 WBC RBC Hgb Hct MCV MCH MCHC RDW Plt Count MPV Neut % (Auto) Lymph % (Auto) [place] % (Auto) Eos % (Auto) Baso % (Auto) Neut # Lymph # [place] # Eos # Baso # Sodium Potassium Chloride Carbon Dioxide Anion Gap BUN Creatinine Est GFR ( Amer) Est GFR (Non-Af Amer) Random Glucose Calcium Phosphorus Magnesium Total Bilirubin AST ALT Alkaline Phosphatase Total Protein Albumin Globulin Albumin/Globulin Ratio Valproic Acid < 10.0 L Review of Systems - Review of Systems All systems: reviewed and no additional remarkable complaints except - Gastrointestinal Gastrointestinal: Diarrhea - Neurological Neurological: UNREMARKABLE Critical Care Progress Note - Nutrition Nutrition: Nutrition Category Date Time Status Pureed [Dysphagia/Modified Consistency Diet] [DIET] Diets 07/19/16 Breakfast Active Assessment/Plan (1) C. difficile colitis Assessment and plan: 81 year old female with a past medical history of HTN, arthritis, anxiety, seizures, back problems and gall bladder disease presents with C-diff colitis. Patient was placed on antibiotic therapy, with signs of improvement. Patient was transferred to the medical floor earlier in the week however had an episode of respiratory distress last night for which she was placed on BiPAP and upgraded for critical care monitoring. Neuro: Alert and following commands, now stable s/p seizure episode last night. Restarted on all seizure meds prior to episode, continue Depakote, Lamictal and Primidone. Pulm: Acute respiratory failure secondary to fluid overload, starting diuresis. Patient already improving now on nasal cannula oxygen. CV: hemodynamically stable. Hem: Anemia of critical illness Renal: No acute issues, urine output within normal limits. Endo: No acute issues GI: Pured diet, with thin liquids. ID: sepsis from C. difficile colitis, continue Vanco by mouth, Flagyl IV and Rifaximin. DVT proph - heparin subcutaneous GI proph - Pepcid razo for strict I/O's during acute illness Code status - full code Crtical Care Time spent 35 minutes Multi-disciplinary rounds were performed with house staff, nursing, speech therapy, respiratory therapy, pharmacy and nutrition with integrated input from the primary team/attending and other consulting services. The documented time is cumulative and includes review of patient data/exams/labs/chart review and examination of the patient on rounds and throughout the day; time is exclusive of any procedures or teaching time. Current Visit: Yes Status: Acute
[2016-07-24] MEDS: guaiFENesin 200 mg/10 ml Syrup UD PO PRN (21:28)
[2016-07-24] MEDS: Divalproex 500 mg ER Tab PO SCH (21:31)
--- NOTE | 2016-07-24 23:37 | CP.PCM.PN ---
Subjective - Date & Time of Evaluation Date of Evaluation: 07/24/16 Time of Evaluation: 23:30 - Subjective Subjective: pt is awake and responding eating ok but having leg swelling no chest pain still being monitored in ICU Temp Pulse Resp BP Pulse Ox 98.2 F 97 H 26 H 87/41 L 96 07/24/16 16:00 07/24/16 19:36 07/24/16 19:36 07/24/16 18:36 07/24/16 19:36 chest good air entry regular hs abd soft edema noted 07/24/16 07:45 07/24/16 06:46 a/p: pt with colitis seizures oa severe sepsis continue the current treatment BP is on the low side Objective - Vital Signs/Intake and Output Vital Signs (last 24 hours): Temp Pulse Resp BP Pulse Ox 98.2 F 97 H 26 H 87/41 L 96 07/24/16 16:00 07/24/16 19:36 07/24/16 19:36 07/24/16 18:36 07/24/16 19:36 Intake and Output: 07/24/16 07/25/16 18:59 06:59 Intake Total 1700 Output Total 3000 300 Balance -1300 -300 - Medications Medications: Current Medications Acetaminophen (Tylenol 325mg Tab) 650 mg PO Q4 PRN PRN Reason: Fever >100.4 F Last Admin: 07/15/16 09:14 Dose: 650 mg Divalproex Sodium (Depakote Er) 500 mg PO HS [facility] Last Admin: 07/24/16 21:31 Dose: 500 mg Divalproex Sodium (Depakote Er) 250 mg PO DAILY [facility] Famotidine (Pepcid) 20 mg IVP Q12 [facility] Last Admin: 07/24/16 21:29 Dose: 20 mg Furosemide (Lasix) 40 mg IVP DAILY [facility] Last Admin: 07/24/16 10:34 Dose: 40 mg Guaifenesin (Robitussin) 200 mg PO Q4H PRN PRN Reason: Cough and congestion Last Admin: 07/24/16 21:28 Dose: 200 mg Heparin Sodium (Porcine) (Heparin) 5,000 units SC Q12 [facility] Last Admin: 07/24/16 21:28 Dose: 5,000 units Metronidazole (Flagyl) 100 mls @ 100 mls/hr IVPB Q8 [facility] Last Admin: 07/24/16 21:31 Dose: 100 mls/hr Lamotrigine (Lamictal) 50 mg PO DAILY [facility] Last Admin: 07/24/16 10:35 Dose: 50 mg Primidone (Mysoline) 75 mg PO HS [facility] Last Admin: 07/24/16 21:30 Dose: 75 mg Primidone (Mysoline) 50 mg PO DAILY [facility] Rifaximin (Xifaxan) 550 mg PO BID [facility] Last Admin: 07/24/16 17:48 Dose: 550 mg Saccharomyces Boulardii (Florastor) 250 mg PO TID [facility] Last Admin: 07/24/16 17:48 Dose: 250 mg Vancomycin HCl (Vancocin (Oral Or Rectal Use)) 500 mg PO QID [facility] Last Admin: 07/24/16 21:31 Dose: 500 mg - Labs Labs: 07/24/16 07:45 07/24/16 06:46 PT 14.8 SECONDS (9.7-12.2) H 07/14/16 01:01 INR 1.3 07/14/16 01:01 APTT 37 SECONDS (21-34) H 07/14/16 01:01
[2016-07-25] MEDS: guaiFENesin 200 mg/10 ml Syrup UD PO PRN (01:34)
[2016-07-25] MEDS: metroNIDAZOLE IV 500 mg/100 ml 100 ML IVPB SCH ×3 (05:46→22:20)
[2016-07-25 06:29] LABS: BASO % 0.1 % (0.0-2.0); EOS # 0.1 K/uL (0.0-0.7); EOS % 0.5 % (0.0-4.0); HEMATOCRIT 29.9 % (34.0-47.0); LYMPH # 2.1 K/uL (1.0-4.3); LYMPH % 15.9 % (20.0-40.0); MEAN CORPUSCULAR HEMOGLOBIN 27.8 pg (27.0-31.0); MEAN CORPUSCULAR HGB CONC 32.7 g/dL (33.0-37.0); MEAN PLATELET VOLUME 7.8 fL (7.2-11.7); MONO # 0.8 K/uL (0.0-0.8); MONO % 6.2 % (0.0-10.0); RED CELL DISTRIBUTION WIDTH 15.1 % (11.5-14.5); WHITE BLOOD COUNT 13.4 K/uL (4.8-10.8)
[2016-07-25 06:32] LABS: CHLORIDE 97 mmol/L (98-107); POTASSIUM 3.4 mmol/L (3.6-5.2); SODIUM 129 mmol/L (132-148)
[2016-07-25 06:34] LABS: GFR AFRICAN-AMERICAN > 60
[2016-07-25 06:35] LABS: ALB/GLOB RATIO 0.7 (1.0-2.1); ALKALINE PHOSPHATASE 31 U/L (38-126); ALT/SGPT 24 U/L (9-52); AST/SGOT 23 U/L (14-36); BILIRUBIN,TOTAL 0.3 mg/dL (0.2-1.3); BLOOD UREA NITROGEN 7 mg/dL (7-17); CALCIUM 7.3 mg/dl (8.6-10.4); CARBON DIOXIDE 26 mmol/L (22-30); GLUCOSE,RANDOM 80 mg/dL (65-105); PHOSPHOROUS 3.6 mg/dL (2.5-4.5); TOTAL PROTEIN 4.7 g/dL (6.3-8.3)
[2016-07-25 06:36] LABS: MAGNESIUM 1.7 mg/dL (1.6-2.3)
--- NOTE | 2016-07-25 09:14 | CP.PCM.PN ---
Subjective - Date & Time of Evaluation Date of Evaluation: 07/25/16 Time of Evaluation: 09:11 - Subjective Subjective: Patient complains of cough. She denies having nausea, vomiting, abdominal pain. She had two loose bowel movements overnight, but none this morning. Objective - Vital Signs/Intake and Output Vital Signs (last 24 hours): Temp Pulse Resp BP Pulse Ox 98 F 84 19 105/53 L 99 07/25/16 04:00 07/25/16 08:04 07/25/16 08:04 07/25/16 08:04 07/25/16 08:04 Intake and Output: 07/25/16 07/25/16 06:59 18:59 Intake Total 950 Output Total 1600 Balance -650 - Medications Medications: Current Medications Acetaminophen (Tylenol 325mg Tab) 650 mg PO Q4 PRN PRN Reason: Fever >100.4 F Last Admin: 07/15/16 09:14 Dose: 650 mg Divalproex Sodium (Depakote Er) 500 mg PO HS [facility] Last Admin: 07/24/16 21:31 Dose: 500 mg Divalproex Sodium (Depakote Er) 250 mg PO DAILY [facility] Famotidine (Pepcid) 20 mg IVP Q12 [facility] Last Admin: 07/24/16 21:29 Dose: 20 mg Guaifenesin (Robitussin) 200 mg PO Q4H PRN PRN Reason: Cough and congestion Last Admin: 07/25/16 01:34 Dose: 200 mg Heparin Sodium (Porcine) (Heparin) 5,000 units SC Q12 [facility] Last Admin: 07/24/16 21:28 Dose: 5,000 units Metronidazole (Flagyl) 100 mls @ 100 mls/hr IVPB Q8 [facility] Last Admin: 07/25/16 05:46 Dose: 100 mls/hr Lamotrigine (Lamictal) 50 mg PO DAILY [facility] Last Admin: 07/24/16 10:35 Dose: 50 mg Primidone (Mysoline) 75 mg PO HS [facility] Last Admin: 07/24/16 21:30 Dose: 75 mg Primidone (Mysoline) 50 mg PO DAILY [facility] Rifaximin (Xifaxan) 550 mg PO BID [facility] Last Admin: 07/24/16 17:48 Dose: 550 mg Saccharomyces Boulardii (Florastor) 250 mg PO TID [facility] Last Admin: 07/24/16 17:48 Dose: 250 mg Vancomycin HCl (Vancocin (Oral Or Rectal Use)) 500 mg PO QID [facility] Last Admin: 07/24/16 21:31 Dose: 500 mg - Labs Labs: 07/25/16 06:18 07/25/16 06:18 PT 14.8 SECONDS (9.7-12.2) H 07/14/16 01:01 INR 1.3 07/14/16 01:01 APTT 37 SECONDS (21-34) H 07/14/16 01:01 - Constitutional Appears: No Acute Distress - Head Exam Head Exam: ATRAUMATIC, NORMOCEPHALIC - Eye Exam Eye Exam: EOMI, PERRL - Neck Exam Neck Exam: absent: Lymphadenopathy, Thyromegaly - Respiratory Exam Respiratory Exam: NORMAL BREATHING PATTERN. absent: Rales, Rhonchi, Wheezes - Cardiovascular Exam Cardiovascular Exam: REGULAR RHYTHM, +S1, +S2. absent: Gallop, Rubs, Murmur - GI/Abdominal Exam GI & Abdominal Exam: Distended, Soft, Normal Bowel Sounds. absent: Tenderness, Mass, Organomegaly - Rectal Exam Rectal Exam: Deferred - Extremities Exam Extremities Exam: Pedal Edema. absent: Calf Tenderness Additional comments: 2+ edema bilateral Assessment and Plan (1) C. difficile colitis Assessment & Plan: Frequency of bowel movements is improving. The WBC count is down to 13.4. Continue vancomycin. Status: Acute
[2016-07-25] MEDS: Saccharomyces Boulardi 250 mg Cap PO SCH ×3 (09:53→17:51)
[2016-07-25] MEDS: guaiFENesin 200 mg/10 ml Syrup UD PO SCH ×4 (09:53→22:20)
[2016-07-25] MEDS: Vancomycin 125 MG/5 ML SOLN (ORAL/RECTAL) PO SCH ×4 (09:56→23:02)
--- NOTE | 2016-07-25 13:27 | PN ---
DATE: 07/25/2016 NEUROLOGICAL PROBLEM: Seizures. PHYSICAL EXAMINATION: VITAL SIGNS: Blood pressure 111/51, mean arterial pressure of 71, respiratory rate 19, temperature 9 8.3. NEUROLOGIC: The patient is comfortably sitting in the chair. No seizures, more than 24-hour period. Current examination unchanged to compare with my previous examination. The patient's antiepileptic drugs have been resumed, where she has been taking as per her neurologist in [place]. The patient will be followed closely with you. Parvez Bolaños MD cc: [id number] TT: 07/25/2016 13:26:00 Confirmation # [id number] Dictation # [id number]
--- NOTE | 2016-07-25 22:19 | CP.PCM.PN ---
<Sana Parson - Last Filed: 07/25/16 22:13> Subjective - Date & Time of Evaluation Date of Evaluation: 07/25/16 Time of Evaluation: 22:13 - Subjective Subjective: House Doctor Note: Patient complaining of suprapubic "burning". Patient with razo in place and adequate urine output as per nursing. Last UA and urine culture 07/14/16 were negative. Patient with history of allergic reaction to antibiotics. Will re- order UA. Further management as per attending Dr. Hightower. Sana Parson, DO - PGY 2 Objective - Vital Signs/Intake and Output Vital Signs (last 24 hours): Temp Pulse Resp BP Pulse Ox 97.7 F 96 H 20 124/63 99 07/25/16 16:00 07/25/16 20:00 07/25/16 20:00 07/25/16 20:00 07/25/16 20:00 Intake and Output: 07/25/16 07/26/16 18:59 06:59 Intake Total 320 100 Output Total 1550 Balance 320 -1450 - Medications Medications: Current Medications Acetaminophen (Tylenol 325mg Tab) 650 mg PO Q4 PRN PRN Reason: Fever >100.4 F Last Admin: 07/15/16 09:14 Dose: 650 mg Divalproex Sodium (Depakote Er) 500 mg PO HS [facility] Last Admin: 07/24/16 21:31 Dose: 500 mg Divalproex Sodium (Depakote Er) 250 mg PO DAILY [facility] Last Admin: 07/25/16 10:01 Dose: 250 mg Famotidine (Pepcid) 20 mg IVP Q12 [facility] Last Admin: 07/25/16 09:53 Dose: 20 mg Guaifenesin (Robitussin) 200 mg PO Q4H [facility] Last Admin: 07/25/16 17:47 Dose: 200 mg Heparin Sodium (Porcine) (Heparin) 5,000 units SC Q12 [facility] Last Admin: 07/25/16 10:00 Dose: 5,000 units Metronidazole (Flagyl) 100 mls @ 100 mls/hr IVPB Q8 [facility] Last Admin: 07/25/16 15:00 Dose: 100 mls/hr Lamotrigine (Lamictal) 50 mg PO DAILY [facility] Last Admin: 07/25/16 09:55 Dose: 50 mg Primidone (Mysoline) 75 mg PO HS [facility] Last Admin: 07/24/16 21:30 Dose: 75 mg Primidone (Mysoline) 50 mg PO DAILY [facility] Last Admin: 07/25/16 09:54 Dose: 50 mg Rifaximin (Xifaxan) 550 mg PO BID [facility] Last Admin: 07/25/16 17:47 Dose: 550 mg Saccharomyces Boulardii (Florastor) 250 mg PO TID [facility] Last Admin: 07/25/16 17:51 Dose: 250 mg Vancomycin HCl (Vancocin (Oral Or Rectal Use)) 500 mg PO QID [facility] Last Admin: 07/25/16 17:47 Dose: 500 mg - Labs Labs: 07/25/16 06:18 07/25/16 06:18 PT 14.8 SECONDS (9.7-12.2) H 07/14/16 01:01 INR 1.3 07/14/16 01:01 APTT 37 SECONDS (21-34) H 07/14/16 01:01 <Sangeetha Hightower - Last Filed: 07/26/16 19:04> Subjective - Date & Time of Evaluation Date of Evaluation: 07/26/16 Time of Evaluation: 19:04 - Subjective Subjective: Patient is currently doing well, denies any chest pain or shortness of breath abating is stable. Leg swelling is improving. Continue the current treatment. Physical therapy transferred to floor. Objective - Vital Signs/Intake and Output Vital Signs (last 24 hours): Temp Pulse Resp BP Pulse Ox 99 F 99 H 21 122/56 L 99 07/26/16 16:00 07/26/16 16:00 07/26/16 16:00 07/26/16 16:00 07/26/16 16:00 - Medications Medications: Current Medications Acetaminophen (Tylenol 325mg Tab) 650 mg PO Q4 PRN PRN Reason: Fever >100.4 F Last Admin: 07/15/16 09:14 Dose: 650 mg Divalproex Sodium (Depakote Er) 500 mg PO HS [facility] Last Admin: 07/25/16 22:21 Dose: 500 mg Divalproex Sodium (Depakote Er) 250 mg PO DAILY [facility] Last Admin: 07/26/16 09:39 Dose: 250 mg Famotidine (Pepcid) 20 mg IVP Q12 [facility] Last Admin: 07/26/16 10:30 Dose: 20 mg Guaifenesin (Robitussin) 200 mg PO Q4H [facility] Last Admin: 07/26/16 17:11 Dose: 200 mg Heparin Sodium (Porcine) (Heparin) 5,000 units SC Q12 [facility] Last Admin: 07/26/16 09:35 Dose: 5,000 units Metronidazole (Flagyl) 100 mls @ 100 mls/hr IVPB Q8 [facility] Last Admin: 07/26/16 14:00 Dose: Not Given Lamotrigine (Lamictal) 50 mg PO DAILY [facility] Last Admin: 07/26/16 09:36 Dose: 50 mg Primidone (Mysoline) 75 mg PO HS [facility] Last Admin: 07/25/16 22:26 Dose: 75 mg Primidone (Mysoline) 50 mg PO DAILY [facility] Last Admin: 07/26/16 09:37 Dose: 50 mg Rifaximin (Xifaxan) 550 mg PO BID [facility] Last Admin: 07/26/16 17:11 Dose: 550 mg Saccharomyces Boulardii (Florastor) 250 mg PO TID [facility] Last Admin: 07/26/16 17:12 Dose: 250 mg Vancomycin HCl (Vancocin (Oral Or Rectal Use)) 500 mg PO QID [facility] Last Admin: 07/26/16 17:09 Dose: 500 mg - Labs Labs: 07/25/16 06:18 07/25/16 06:18 PT 14.8 SECONDS (9.7-12.2) H 07/14/16 01:01 INR 1.3 07/14/16 01:01 APTT 37 SECONDS (21-34) H 07/14/16 01:01
[2016-07-25] MEDS: Divalproex 500 mg ER Tab PO SCH (22:21)
[2016-07-25 22:46] LABS: RBC URINE < 1 /hpf (0-3); URINE BILIRUBIN NEGATIVE (NEGATIVE); URINE BLOOD NEGATIVE (NEGATIVE); URINE COLOR Yellow (YELLOW); URINE GLUCOSE (UA) NORMAL (Normal); URINE KETONE NEGATIVE (NEGATIVE); URINE LEUKOCYTE ESTERASE NEG Leu/uL (Negative); URINE PROTEIN NEGATIVE (NEGATIVE); URINE UROBILINOGEN NORMAL mg/dL (0.2-1.0); WBC URINE 1 /hpf (0-5)
[2016-07-26] MEDS: guaiFENesin 200 mg/10 ml Syrup UD PO SCH ×6 (03:45→22:04)
[2016-07-26] MEDS: metroNIDAZOLE IV 500 mg/100 ml 100 ML IVPB SCH ×3 (06:28→22:03)
[2016-07-26] MEDS: Saccharomyces Boulardi 250 mg Cap PO SCH ×3 (09:35→17:12)
[2016-07-26] MEDS: Vancomycin 125 MG/5 ML SOLN (ORAL/RECTAL) PO SCH ×4 (09:37→22:05)
--- NOTE | 2016-07-26 10:17 | CON ---
DATE: 07/24/2016 CHIEF COMPLAINT: The patient was admitted with a history of fever. During the hospitalization, the patient had generalized tonic clonic seizures. From neurological point of view, I was called in to evaluate her for further management. HISTORY OF PRESENT ILLNESS: The patient is a 81-year-old right-handed female who is known to me from her previous hospitalization in the hospital, been known to have seizure disorder, been seeing a neurologist in [place], on 3 antiepileptic drugs for her seizures, who did not have any seizures for too many years in the past with this medication . Following this admission , however, one of the medications was not renewed. The patient did develop generalized tonic-clonic activities, been witnessed. Initially, patient was loaded with Keppra. PAST MEDICAL HISTORY: Anxiety disorder, arthritis, chronic back problem, gallbladder disease, hypertension, seizure disorder for the last more than 15 years. PAST SURGICAL HISTORY: Cholecystectomy. ALLERGIES: INFLUENZA VACCINE, PENICILLIN AND VANCOMYCIN. REVIEW OF SYSTEMS: As per H and P. MEDICATIONS: Depakote, lamotrigine, primidone, Tylenol, vancomycin. VITAL SIGNS: Blood pressure 100 to 106/56, mean arterial pressure of 72, respiratory rate 16, temperature afebrile. Pulse rate 93 and regular. NEUROLOGIC EXAMINATION: The patient is examined in the presence of her . She is awake, alert, oriented to person, place, and time. Speech is clear. Naming, repetition, fluency, comprehension all within normal. CRANIAL NERVE EXAMINATION: Visual field intact, pupils reactive to light. Extraocular movements are normal. No nystagmus, no facial sensory deficit, no facial asymmetry. Hearing is normal. Tongue is midline. Good gag. MOTOR EXAMINATION: She was able to lift both upper extremities against the gravity. DEEP TENDON REFLEXES: Trace on both sides. Both knees are absent, both ankles are absent. Plantars are equivocal response on both sides. SENSORY EXAMINATION: Responds to pain symmetrically on both sides. CONCLUSION: Upon reviewing her history and neurological examination, the patient presented with witnessed generalized tonic-clonic activities which are probably secondary to holding one of the antiepileptic drugs. The current examination does not show any lateralizing sign at present. The patient seems to be fatigued, weak, could be from postictal phenomenon and other possible causes could be from medical issues. BLOOD WORKUP: WBC 16.9, hemoglobin 10.5, hematocrit 33.3, and platelets 330. Sodium 134, potassium 3.8, chloride 93, bicarbonate 24, BUN 9, GFR more than 60. Valproic acid less than 10. RECOMMENDATIONS: 1. Resume her primidone as she has been taking. The other antiepileptic drugs including Lamictal and Depakote will be in place. 2. Keppra which was added yesterday is discontinued. 3. Proper hydration and correct the electrolytes. 4. Appropriate antibiotic as per ID. The patient should be fine with recommended medication. If her seizures recur, probably she needs further workup and/or another medication should be increased to keep the therapeutic range. The patient's condition has been discussed with the title i math tutor. The patient will be followed closely with you. Parvez Bolaños MD cc: [id number] TT: 07/24/2016 14:51:43 Confirmation # [id number] Dictation # [id number] 07/26/2016 09:16:04 GISEL
--- NOTE | 2016-07-26 15:54 | CP.PCM.PN ---
Subjective - Date & Time of Evaluation Date of Evaluation: 07/26/16 Time of Evaluation: 15:51 - Subjective Subjective: CC: Follow up c Difficile colitis In ICU, weak, Loose yellow BMs, negative for C Diff recently. Rectal soreness. Objective - Vital Signs/Intake and Output Vital Signs (last 24 hours): Temp Pulse Resp BP Pulse Ox 99.2 F 86 20 130/73 98 07/26/16 12:00 07/26/16 12:00 07/26/16 12:00 07/26/16 12:00 07/26/16 12:00 Intake and Output: 07/26/16 07/26/16 06:59 18:59 Intake Total 770 Output Total 2950 Balance -2180 - Medications Medications: Current Medications Acetaminophen (Tylenol 325mg Tab) 650 mg PO Q4 PRN PRN Reason: Fever >100.4 F Last Admin: 07/15/16 09:14 Dose: 650 mg Divalproex Sodium (Depakote Er) 500 mg PO HS [facility] Last Admin: 07/25/16 22:21 Dose: 500 mg Divalproex Sodium (Depakote Er) 250 mg PO DAILY [facility] Last Admin: 07/26/16 09:39 Dose: 250 mg Famotidine (Pepcid) 20 mg IVP Q12 [facility] Last Admin: 07/26/16 10:30 Dose: 20 mg Guaifenesin (Robitussin) 200 mg PO Q4H [facility] Last Admin: 07/26/16 14:02 Dose: 200 mg Heparin Sodium (Porcine) (Heparin) 5,000 units SC Q12 [facility] Last Admin: 07/26/16 09:35 Dose: 5,000 units Metronidazole (Flagyl) 100 mls @ 100 mls/hr IVPB Q8 [facility] Last Admin: 07/26/16 14:00 Dose: Not Given Lamotrigine (Lamictal) 50 mg PO DAILY [facility] Last Admin: 07/26/16 09:36 Dose: 50 mg Primidone (Mysoline) 75 mg PO HS [facility] Last Admin: 07/25/16 22:26 Dose: 75 mg Primidone (Mysoline) 50 mg PO DAILY [facility] Last Admin: 07/26/16 09:37 Dose: 50 mg Rifaximin (Xifaxan) 550 mg PO BID [facility] Last Admin: 07/26/16 09:36 Dose: 550 mg Saccharomyces Boulardii (Florastor) 250 mg PO TID [facility] Last Admin: 07/26/16 14:04 Dose: 250 mg Vancomycin HCl (Vancocin (Oral Or Rectal Use)) 500 mg PO QID [facility] Last Admin: 07/26/16 14:05 Dose: 500 mg - Labs Labs: 07/25/16 06:18 07/25/16 06:18 PT 14.8 SECONDS (9.7-12.2) H 07/14/16 01:01 INR 1.3 07/14/16 01:01 APTT 37 SECONDS (21-34) H 07/14/16 01:01 - Constitutional Appears: Chronically Ill - Head Exam Head Exam: NORMOCEPHALIC - Eye Exam Eye Exam: absent: Scleral icterus - Respiratory Exam Respiratory Exam: Clear to Ausculation Bilateral - Cardiovascular Exam Cardiovascular Exam: REGULAR RHYTHM - GI/Abdominal Exam GI & Abdominal Exam: Soft, Hyperactive Bowel Sounds. absent: Tenderness, Rebound - Extremities Exam Additional comments: Bilat pitting edema lower exts Assessment and Plan (1) Acute respiratory failure Status: Acute (2) Sepsis Status: Acute (3) GERD (gastroesophageal reflux disease) Assessment & Plan: Stable Status: Suspected (4) C. difficile colitis Assessment & Plan: Improving Continue Vancomycin Status: Acute
--- NOTE | 2016-07-26 18:09 | CP.PCM.PN ---
Subjective - Date & Time of Evaluation Date of Evaluation: 07/26/16 Time of Evaluation: 18:03 - Subjective Subjective: INFECTIOUS DISEASE ICU/CCU PROGRESS NOTE # 6 Candis VERA MD, FACP 07/25- CLINICALLY BETTER BUT WEAK AND TIRED, MILD COUGH DEMANDING MORE MEDS. APPARENTLY THAT'S WHAT GOT HER INTO TROUBLE AT THE [facility]. RECEOMMEND A MODIFIED ARVIN'S PROTOCOL OF VANCOMYCIN THAT RRUNS SOMETHING LIKE THE FOLLOWING, VANCOMYCIN 125 MG PO QID X 14 DAYS, THEN VANCO 125 BID X BID X 14 DAYS, THEN VANCO 125 OD X 7 DAYS, THEN VANCO 125 EVERYOTHER DAY FOR 7 DAYS, THEN 125 MG EVERY 3 DAYS X 14 DAYS. IF THIS DOESN'T WORK SHE IS A CANDIDATE FOR [employer]!!! Objective - Vital Signs/Intake and Output Vital Signs (last 24 hours): Temp Pulse Resp BP Pulse Ox 99 F 99 H 21 122/56 L 99 07/26/16 16:00 07/26/16 16:00 07/26/16 16:00 07/26/16 16:00 07/26/16 16:00 Intake and Output: 07/26/16 07/26/16 06:59 18:59 Intake Total 770 Output Total 2950 Balance -2180 - Medications Medications: Current Medications Acetaminophen (Tylenol 325mg Tab) 650 mg PO Q4 PRN PRN Reason: Fever >100.4 F Last Admin: 07/15/16 09:14 Dose: 650 mg Divalproex Sodium (Depakote Er) 500 mg PO HS [facility] Last Admin: 07/25/16 22:21 Dose: 500 mg Divalproex Sodium (Depakote Er) 250 mg PO DAILY [facility] Last Admin: 07/26/16 09:39 Dose: 250 mg Famotidine (Pepcid) 20 mg IVP Q12 [facility] Last Admin: 07/26/16 10:30 Dose: 20 mg Guaifenesin (Robitussin) 200 mg PO Q4H [facility] Last Admin: 07/26/16 17:11 Dose: 200 mg Heparin Sodium (Porcine) (Heparin) 5,000 units SC Q12 [facility] Last Admin: 07/26/16 09:35 Dose: 5,000 units Metronidazole (Flagyl) 100 mls @ 100 mls/hr IVPB Q8 [facility] Last Admin: 07/26/16 14:00 Dose: Not Given Lamotrigine (Lamictal) 50 mg PO DAILY [facility] Last Admin: 07/26/16 09:36 Dose: 50 mg Primidone (Mysoline) 75 mg PO HS [facility] Last Admin: 07/25/16 22:26 Dose: 75 mg Primidone (Mysoline) 50 mg PO DAILY [facility] Last Admin: 07/26/16 09:37 Dose: 50 mg Rifaximin (Xifaxan) 550 mg PO BID [facility] Last Admin: 07/26/16 17:11 Dose: 550 mg Saccharomyces Boulardii (Florastor) 250 mg PO TID [facility] Last Admin: 07/26/16 17:12 Dose: 250 mg Vancomycin HCl (Vancocin (Oral Or Rectal Use)) 500 mg PO QID [facility] Last Admin: 07/26/16 17:09 Dose: 500 mg - Labs Labs: 07/25/16 06:18 07/25/16 06:18 PT 14.8 SECONDS (9.7-12.2) H 07/14/16 01:01 INR 1.3 07/14/16 01:01 APTT 37 SECONDS (21-34) H 07/14/16 01:01 - Constitutional Appears: Non-toxic, Older Than Stated Age, Chronically Ill - Head Exam Head Exam: ATRAUMATIC - Eye Exam Eye Exam: Normal appearance - ENT Exam ENT Exam: Mucous Membranes Moist - Neck Exam Neck Exam: Normal Inspection - Respiratory Exam Respiratory Exam: Decreased Breath Sounds, NORMAL BREATHING PATTERN - Cardiovascular Exam Cardiovascular Exam: REGULAR RHYTHM - GI/Abdominal Exam GI & Abdominal Exam: Soft, Normal Bowel Sounds. absent: Tenderness - Rectal Exam Rectal Exam: Deferred - Neurological Exam Neurological Exam: Alert, Awake - Psychiatric Exam Psychiatric exam: Anxious, Normal Mood - Skin Skin Exam: Warm. absent: Normal Color Assessment and Plan (1) C. difficile colitis Status: Acute (2) Acute respiratory failure Status: Acute (3) GERD (gastroesophageal reflux disease) Status: Suspected (4) Knee injury Status: Chronic (5) Sepsis Status: Acute (6) Bladder incontinence Status: Chronic (7) Abdominal pain Status: Acute (8) Seizure disorder Status: Acute
[2016-07-26] MEDS ORDERED: Divalproex 500 mg ER Tab PO STA (21:43)
[2016-07-27] MEDS: guaiFENesin 200 mg/10 ml Syrup UD PO SCH ×5 (03:56→17:26)
[2016-07-27] MEDS: metroNIDAZOLE IV 500 mg/100 ml 100 ML IVPB SCH (05:51)
--- NOTE | 2016-07-27 07:56 | PN ---
DATE: 07/27/2016 NEUROLOGICAL PROBLEM: Seizures. PHYSICAL EXAMINATION: VITAL SIGNS: Blood pressure 115/51, mean at present 72, respiratory rate 16, temperature 99.3 degree s Fahrenheit. NEUROLOGIC: The patient seems to be sound sleeping with mouth open. The patient did not have any cl inical seizures overnight. An electroencephalogram has been reviewed. It shows paroxysmal epileptiform activities, spike and wa ve noted in the beginning, later more pronounced over right parietal as well as temporal region, shannon p wave activities with phase reversal at T4 and P4 region. The patient's Depakote dose was increased to 500 b.i.d. and an extra 500 was given last night. The p atient tolerating Depakote dose well. I will follow the Depakote level tomorrow. In the meantime, w ill watch her for seizure precautions. Parvez Bolaños MD cc: [id number] TT: 07/27/2016 07:56:23 Confirmation # [id number] Dictation # [id number]
--- NOTE | 2016-07-27 08:10 | CP.PCM.PN ---
Subjective - Date & Time of Evaluation Date of Evaluation: 07/27/16 Time of Evaluation: 07:45 - Subjective Subjective: F/U diarrhea. Still with mult soft stools, but less Abdomen feels better. Denies RB< melena, fever, chills, MADRID, cough, hematuria, hemoptysis Objective - Vital Signs/Intake and Output Vital Signs (last 24 hours): Temp Pulse Resp BP Pulse Ox 99.3 F 97 H 21 115/51 L 98 07/27/16 04:00 07/27/16 04:00 07/27/16 04:00 07/27/16 04:00 07/27/16 04:00 Intake and Output: 07/27/16 07/27/16 06:59 18:59 Intake Total 760 Output Total 2400 Balance -1640 - Medications Medications: Current Medications Acetaminophen (Tylenol 325mg Tab) 650 mg PO Q4 PRN PRN Reason: Fever >100.4 F Last Admin: 07/15/16 09:14 Dose: 650 mg Divalproex Sodium (Depakote Er) 500 mg PO BID [facility] Famotidine (Pepcid) 20 mg IVP Q12 [facility] Last Admin: 07/26/16 21:57 Dose: 20 mg Guaifenesin (Robitussin) 200 mg PO Q4H [facility] Last Admin: 07/27/16 05:53 Dose: 200 mg Metronidazole (Flagyl) 100 mls @ 100 mls/hr IVPB Q8 [facility] Last Admin: 07/27/16 05:51 Dose: 100 mls/hr Lamotrigine (Lamictal) 50 mg PO DAILY [facility] Last Admin: 07/26/16 09:36 Dose: 50 mg Primidone (Mysoline) 75 mg PO HS [facility] Last Admin: 07/26/16 22:04 Dose: 75 mg Primidone (Mysoline) 50 mg PO DAILY [facility] Last Admin: 07/26/16 09:37 Dose: 50 mg Rifaximin (Xifaxan) 550 mg PO BID [facility] Last Admin: 07/26/16 17:11 Dose: 550 mg Saccharomyces Boulardii (Florastor) 250 mg PO TID [facility] Last Admin: 07/26/16 17:12 Dose: 250 mg Vancomycin HCl (Vancocin (Oral Or Rectal Use)) 500 mg PO QID [facility] Last Admin: 07/26/16 22:05 Dose: 500 mg - Labs Labs: 07/25/16 06:18 07/25/16 06:18 PT 14.8 SECONDS (9.7-12.2) H 07/14/16 01:01 INR 1.3 07/14/16 01:01 APTT 37 SECONDS (21-34) H 07/14/16 01:01 - Constitutional Appears: Non-toxic - Neck Exam Neck Exam: absent: Tenderness - Respiratory Exam Respiratory Exam: Clear to Ausculation Bilateral - Cardiovascular Exam Cardiovascular Exam: RRR - GI/Abdominal Exam GI & Abdominal Exam: Soft, Normal Bowel Sounds. absent: Distended, Guarding, Tenderness - Extremities Exam Extremities Exam: Pedal Edema - Neurological Exam Neurological Exam: Alert, Awake, Oriented x3 Assessment and Plan (1) Acute respiratory failure Assessment & Plan: Better Status: Acute (2) Sepsis Assessment & Plan: Improving. WBC down to 13 Status: Acute (3) Abdominal pain Assessment & Plan: Better Status: Acute (4) GERD (gastroesophageal reflux disease) Status: Suspected (5) Colitis Assessment & Plan: c difficile. Improving. Continue meds, 2 stools are neg Status: Acute (6) Diarrhea Status: Acute (7) Seizure Status: Acute
--- NOTE | 2016-07-27 09:34 | EEG ---
DATE: 07/26/2016 This is a 16-channel electroencephalogram of awake and drowsy adult. During the study, photic stimul ation was performed. The resting electroencephalogram to begin with generalized spike and wave activities noted in bilater al cortical leads which followed with generalized 2-3 Hz delta activity seen. There are still polysp miryam and wave activities predominantly seen over right parietal leads. These followed with high ampli tude theta activities. There are generalized high amplitude delta activities followed with slow acti vities. There are intermittent generalized spike and wave activities noted over the right temporal a s well as right parietal leads, phase reversal at P4 and T6 region. This lasted for about 2-3 second s. The photic stimulation did not evoke driving response noted at 2-20 Hz. However, polyspike and w ave activities again noted over right temporal leads. Phase reversal at T6. IMPRESSION: This is abnormal electroencephalogram because of persistent slowing superimposed with ge neralized spike and wave activities to begin doing the recording, followed with localizing the spike and wave activities over the right temporal as well as the parietal leads suggestive of epileptiform focus. Please correlate the finding with the neurological and radiological studies. Parvez Bolaños MD cc: [id number] TT: 07/27/2016 07:31:01 Confirmation # [id number] Dictation # [id number] mn
[2016-07-27] MEDS: Divalproex 500 mg ER Tab PO SCH ×2 (10:05→17:26)
[2016-07-27] MEDS: Saccharomyces Boulardi 250 mg Cap PO SCH ×3 (10:05→17:26)
[2016-07-27] MEDS: Vancomycin 125 MG/5 ML SOLN (ORAL/RECTAL) PO SCH ×3 (10:53→17:27)
[2016-07-27 13:40] LABS: BASO % 0.3 % (0.0-2.0); EOS % 0.1 % (0.0-4.0); HEMATOCRIT 33.7 % (34.0-47.0); LYMPH # 1.6 K/uL (1.0-4.3); LYMPH % 9.9 % (20.0-40.0); MEAN CELL VOLUME 84.7 fL (81.0-99.0); MEAN CORPUSCULAR HEMOGLOBIN 27.6 pg (27.0-31.0); MEAN CORPUSCULAR HGB CONC 32.6 g/dL (33.0-37.0); MEAN PLATELET VOLUME 7.8 fL (7.2-11.7); MONO # 1.1 K/uL (0.0-0.8); MONO % 6.6 % (0.0-10.0); PLATELET COUNT 261 K/uL (130-400); WHITE BLOOD COUNT 16.2 K/uL (4.8-10.8)
[2016-07-27 13:46] LABS: CHLORIDE 94 mmol/L (98-107)
[2016-07-27 13:47] LABS: POTASSIUM 3.2 mmol/L (3.6-5.2); SODIUM 126 mmol/L (132-148)
[2016-07-27 13:49] LABS: ALB/GLOB RATIO 0.7 (1.0-2.1); ALKALINE PHOSPHATASE 37 U/L (38-126); ALT/SGPT 14 U/L (9-52); AST/SGOT 22 U/L (14-36); BILIRUBIN,TOTAL 0.3 mg/dL (0.2-1.3); BLOOD UREA NITROGEN 6 mg/dL (7-17); CARBON DIOXIDE 25 mmol/L (22-30); GFR AFRICAN-AMERICAN > 60; GLUCOSE,RANDOM 105 mg/dL (65-105); TOTAL PROTEIN 5.5 g/dL (6.3-8.3)
[2016-07-27 13:50] LABS: CALCIUM 7.4 mg/dl (8.6-10.4)
[2016-07-27 14:18] VITALS: RESP 20
[2016-07-27] MEDS ORDERED: Potassium Chloride 20 mEq/15 ml LIQ UD PO STA (14:37)
[2016-07-27 15:04] LABS: NEUTROPHIL 84 % (50-75); TOTAL CELLS COUNTED 100
[2016-07-27 17:09] VITALS: BP 120/57; PULSE 106; TEMP 97.5; O2SAT 100
--- NOTE | 2016-07-27 21:08 | CP.PCM.DIS ---
Provider - Provider Date of Admission: 07/14/16 03:09 Attending physician: Sangeetha Hightower MD Time Spent in preparation of Discharge (in minutes): 45 Diagnosis - Discharge Diagnosis (1) Septic shock Status: Acute (2) Fluid overload Status: Acute Hospital Course - Lab Results Lab Results: Micro Results 07/21/16 20:42 Naris MRSA Culture (Admit) - Final MRSA NOT DETECTED 07/20/16 Unknown Nose MRSA Culture - Final MRSA NOT DETECTED 07/14/16 04:51 Naris MRSA Culture (Admit) - Final MRSA NOT DETECTED Most Recent Lab Values WBC 16.2 K/uL (4.8-10.8) H 07/27/16 13:35 RBC 3.97 Mil/uL (3.80-5.20) 07/27/16 13:35 Hgb 11.0 g/dL (11.0-16.0) 07/27/16 13:35 Hct 33.7 % (34.0-47.0) L 07/27/16 13:35 MCV 84.7 fL (81.0-99.0) 07/27/16 13:35 MCH 27.6 pg (27.0-31.0) 07/27/16 13:35 MCHC 32.6 g/dL (33.0-37.0) L 07/27/16 13:35 RDW 16.0 % (11.5-14.5) H 07/27/16 13:35 Plt Count 261 K/uL (130-400) 07/27/16 13:35 MPV 7.8 fL (7.2-11.7) 07/27/16 13:35 Neut % (Auto) 83.1 % (50.0-75.0) H 07/27/16 13:35 Lymph % (Auto) 9.9 % (20.0-40.0) L 07/27/16 13:35 [place] % (Auto) 6.6 % (0.0-10.0) 07/27/16 13:35 Eos % (Auto) 0.1 % (0.0-4.0) 07/27/16 13:35 Baso % (Auto) 0.3 % (0.0-2.0) 07/27/16 13:35 Neut # 13.4 K/uL (1.8-7.0) H 07/27/16 13:35 Lymph # 1.6 K/uL (1.0-4.3) 07/27/16 13:35 [place] # 1.1 K/uL (0.0-0.8) H 07/27/16 13:35 Eos # 0.0 K/uL (0.0-0.7) 07/27/16 13:35 Baso # 0.0 K/uL (0.0-0.2) 07/27/16 13:35 Neutrophils % (Manual) 84 % (50-75) H 07/27/16 13:35 Band Neutrophils % 8 % (0-2) H 07/23/16 08:19 Lymphocytes % (Manual) 12 % (20-40) L 07/27/16 13:35 Reactive Lymphs % 2 % (0-0) H 07/23/16 08:19 Monocytes % (Manual) 4 % (0-10) 07/27/16 13:35 Metamyelocytes % 3 % (0-0) H 07/23/16 08:19 Myelocytes % 1 % (0-0) H 07/23/16 08:19 Nucleated RBC % 2 % (0-0) H 07/22/16 06:25 Toxic Granulation Present 07/21/16 06:41 Dohle Bodies Present 07/14/16 13:55 Anayeli Rods 07/14/16 13:55 Platelet Estimate Normal (NORMAL) 07/27/16 13:35 Plt Clumps, EDTA Present 07/16/16 05:59 Large Platelets Present 07/18/16 06:28 Giant Platelets Present 07/14/16 06:08 Polychromasia Slight 07/22/16 06:25 Hypochromasia (manual) Slight 07/27/16 13:35 Poikilocytosis (manual Slight 07/27/16 13:35 Anisocytosis (manual) Slight 07/27/16 13:35 Target Cells Slight 07/27/16 13:35 Tear Drop Cells Slight 07/27/16 13:35 Ovalocytes Slight 07/17/16 06:36 [place] Cells Slight 07/17/16 06:36 Smear Path Review 07/14/16 06:08 PT 14.8 SECONDS (9.7-12.2) H 07/14/16 01:01 INR 1.3 07/14/16 01:01 APTT 37 SECONDS (21-34) H 07/14/16 01:01 Puncture Site Rr 07/19/16 05:11 pCO2 31 mm/Hg (35-45) L 07/19/16 05:11 pO2 105 mm/Hg (80-100) H 07/19/16 05:11 HCO3 16.3 mmol/L (21-28) L 07/19/16 05:11 ABG pH 7.28 (7.35-7.45) L 07/19/16 05:11 ABG Total CO2 15.6 mmol/L (22-28) L 07/19/16 05:11 ABG O2 Saturation 99.4 % (95-98) H 07/19/16 05:11 ABG Base Excess -11.0 mmol/L (-2.0-3.0) L 07/19/16 05:11 ABG Hemoglobin 11.4 g/dL (11.7-17.4) L 07/19/16 05:11 ABG Carboxyhemoglobin 1.6 % (0.5-1.5) H 07/19/16 05:11 POC ABG HHb (Measured) 0.6 % (0.0-5.0) 07/19/16 05:11 ABG Methemoglobin 1.0 % (0.0-3.0) 07/19/16 05:11 Wesley Test Pos 07/19/16 05:11 ABG Potassium 3.3 mmol/L (3.6-5.2) L 07/14/16 05:25 VBG pH 7.43 (7.32-7.43) 07/14/16 00:58 VBG pCO2 33 mmHg (40-60) L 07/14/16 00:58 VBG HCO3 23.2 mmol/L 07/14/16 00:58 VBG Total CO2 22.9 mmol/L (22-28) 07/14/16 00:58 VBG O2 Sat (Calc) 85.8 % (40-65) H 07/14/16 00:58 VBG Base Excess -1.7 mmol/L (0.0-2.0) L 07/14/16 00:58 VBG Potassium 3.6 mmol/L (3.6-5.2) 07/14/16 00:58 A-a O2 Difference 141.0 mm/Hg 07/19/16 05:11 Respiratory Index 1.3 07/19/16 05:11 Hgb O2 Saturation 96.8 % (95.0-98.0) 07/19/16 05:11 Sodium 122.0 mmol/l (132-148) L 07/14/16 05:25 Chloride 96.0 mmol/L (98-107) L 07/14/16 05:25 Glucose 107 mg/dl (65-105) H 07/14/16 05:25 Lactate 2.0 mmol/L (0.7-2.1) 07/14/16 05:25 Mechanical Rate 14 07/18/16 05:07 FiO2 40.0 % 07/19/16 05:11 Tidal Volume 500 07/18/16 05:07 PEEP 5 07/18/16 05:07 Pressure Support 10 07/19/16 05:11 CPAP 5 07/19/16 05:11 Crit Value Called To Kit rn 07/14/16 00:58 Crit Value Called By Timothy rehab spec 07/14/16 00:58 Crit Value Read Back Y 07/14/16 00:58 Blood Gas Notified Time 103 07/14/16 00:58 Sodium 126 mmol/L (132-148) L 07/27/16 13:35 Potassium 3.2 mmol/L (3.6-5.2) L 07/27/16 13:35 Chloride 94 mmol/L (98-107) L 07/27/16 13:35 Carbon Dioxide 25 mmol/L (22-30) 07/27/16 13:35 Anion Gap 11 (10-20) 07/27/16 13:35 BUN 6 mg/dL (7-17) L 07/27/16 13:35 Creatinine 0.4 MG/DL (0.7-1.2) L 07/27/16 13:35 Est GFR ( Amer) > 60 07/27/16 13:35 Est GFR (Non-Af Amer) > 60 07/27/16 13:35 Random Glucose 105 mg/dL (65-105) 07/27/16 13:35 Serum Osmolality 261 mosm/kg (272-300) L 07/14/16 10:43 Lactic Acid 0.9 mmol/L (0.7-2.1) 07/17/16 12:52 Calcium 7.4 mg/dl (8.6-10.4) L 07/27/16 13:35 Ionized Calcium 4.2 mg/dL (4.80-5.60) L 07/23/16 23:57 Phosphorus 3.6 mg/dL (2.5-4.5) 07/25/16 06:18 Magnesium 1.7 mg/dL (1.6-2.3) 07/25/16 06:18 Total Bilirubin 0.3 mg/dL (0.2-1.3) 07/27/16 13:35 AST 22 U/L (14-36) 07/27/16 13:35 ALT 14 U/L (9-52) 07/27/16 13:35 Alkaline Phosphatase 37 U/L (38-126) L 07/27/16 13:35 Total Creatine Kinase < 20 U/L (30-135) L 07/21/16 19:20 CK-MB (Mass) 1.01 ng/mL (0.0-3.38) 07/21/16 19:20 Troponin I, Quant 0.0210 ng/mL (0.00-0.120) 07/21/16 19:20 Total Protein 5.5 g/dL (6.3-8.3) L 07/27/16 13:35 Albumin 2.3 g/dL (3.5-5.0) L D 07/27/16 13:35 Globulin 3.2 gm/dL (2.2-3.9) 07/27/16 13:35 Albumin/Globulin Ratio 0.7 (1.0-2.1) L 07/27/16 13:35 TSH 3rd Generation 7.83 mIU/L (0.46-4.68) H 07/14/16 06:08 Arterial Blood Potassium 3.3 mmol/L (3.6-5.2) L 07/14/16 05:25 Venous Blood Potassium 3.6 mmol/L (3.6-5.2) 07/14/16 00:58 Urine Color Yellow (YELLOW) 07/25/16 22:40 Urine Clarity Clear (Clear) 07/25/16 22:40 Urine pH 6.0 (5.0-8.0) 07/25/16 22:40 Ur Specific [place] 1.005 (1.003-1.030) 07/25/16 22:40 Urine Protein Negative mg/dL (NEGATIVE) 07/25/16 22:40 Urine Glucose (UA) Normal mg/dL (Normal) 07/25/16 22:40 Urine Ketones Negative mg/dL (NEGATIVE) 07/25/16 22:40 Urine Blood Negative (NEGATIVE) 07/25/16 22:40 Urine Nitrate Negative (NEGATIVE) 07/25/16 22:40 Urine Bilirubin Negative (NEGATIVE) 07/25/16 22:40 Urine Urobilinogen Normal mg/dL (0.2-1.0) 07/25/16 22:40 Ur Leukocyte Esterase Neg [place]/uL (Negative) 07/25/16 22:40 Urine WBC (Auto) 1 /hpf (0-5) 07/25/16 22:40 Urine RBC (Auto) < 1 /hpf (0-3) 07/25/16 22:40 Urine Osmolality 275 mosm/kg (300-1000) L 07/14/16 07:57 Ur Random Sodium 7 mmol/L 07/14/16 07:57 Urine Chloride <15 mmol/L (32-290) L 07/14/16 07:57 Valproic Acid < 10.0 ug/mL (50.0-100.0) L 07/24/16 09:45 C. difficile Ag & Toxin Negative (NEGATIVE) 07/27/16 09:49 Influenza Typ A,B (EIA) Negative for flu a/b (NEGATIVE) 07/14/16 06:21 - Hospital Course Hospital Course: Chief complaint: Shortness of breath. History present illness: 80-year-old female with history of seasonal disorder, chronic constipation, history of gastroesophageal reflux disease, osteoarthritis, multiple joint replacement surgery, hospitalized recently with a fall, injury. Again patient was hospitalized with the colitis, abdominal distention. Patient was discharged to the rehabitation, and she was doing well, she was able to be discharged, she started having high fever, chills, and shortness of breath. Patient was immediately transferred to the [facility] emergency room, in the emergency room patient was noted to have respiratory distress, high fever, and chills, and the patient was hospitalized, and intubated in the emergency room. Because of the current condition change in her situation patient needed respirated monitoring, and ventilator support. Patient was initially hospitalized to the intensive care unit. Upon admission to the ICU. Patient was in severe hypotension, also having high fevers, chills. Patient was also having elevated WBC. Patient was hospitalized with the diagnosis of possible acute septic shock and respiratory failure and underlying colitis could not be ruled out at that time. Past medical history: Multiple arthritis problems, chronic constipation, chronic back problem, hypertension, seizure disorder. Surgical history: Appendectomy, cholecystectomy, joint replacement. Both the knee and hips, history of hysterectomy Allergy: Penicillin, influenza vaccine. Patient while she was receiving vancomycin intravenously in the emergency room currently. She become more respirated distance, and she become more intimate as , hypertensive, acute respiratory distress, following that the patient was intubated. Personal history: Lifelong nonsmoker, nonalcoholic the patient lives with family members currently living in shelter Review of systems: Patient is somewhat drowsy, sleepy at this time, on mechanical ventilator with sedation. The blood pressure is on the low side, supported with medications. Otherwise patient is moving. Following commands otherwise. Diarrhea noted. Leg swelling noted. On examination: Vital signs reviewed. Blood pressure is on the low side. Patient is on ventilator, also. Her to ventilation currently. Chest good air entry bilaterally regular heart sound. Nontender abdomen. Edema noted bilaterally. Patient's labs reviewed. Chest x-ray showing evidence of bilateral lower lung atelectasis. WBC highly elevated. Otherwise nonspecific labs. Assessment/recommendation: 80-year-old female with history of seizure disorder, chronic constipation, hypertension, history of esophageal reflux disease, osteoarthritis, multiple joint replacement surgery recently hospitalized with acute colitis came to the emergency room currently from the shelter with a sudden onset of febrile illness, condition, treated with acute respiratory failure following intravenous vancomycin injection, needing ventilator and respiratory support. Patient is currently having possible severe septic shock associate with the elevated white count and fever. Underlying colitis is possible. The start the patient on Flagyl, by mouth vancomycin, rectal vancomycin, infectious disease evaluation, ventilator support. IV fluid, fluid hydration, and the resuscitation. Overall prognosis is guarded. Spoke to the patient's brother and will follow the patient. Course in the hospital. Patient was initially admitted to the intensive care unit. Patient. Initial diagnosis was septic shock, acute respiratory failure, and the colitis. Fluid resuscitation was done, patient started on treatment for acute colitis, including vancomycin and Flagyl. Patient condition slowly improved. She was stable and he got extubated after a few days later. Patient was doing well, and the patient was 2 days later cancer to the floor. During the stay in the medical floor patient developed acute fluid overload state, and transferred to the intensive care unit again with fluid overload, acute respiratory failure. Patient was placed on BiPAP, her diuretics were given, and the patient immediately improved within 2 days. Overall condition got better. While she was getting recovering, she developed an episode of acute the seizure activities, and the head medications resumed back again. Patient become more stable. She was placed on the physical therapy, and she started moving around. Patient currently stable, she will be discharged to the rehabitation for further management. Continue the current medications. Medications reviewed. Discussed with the patient. Physical therapy patient will be transferred to rehabitation Discharge Exam - Head Exam Head Exam: ATRAUMATIC Discharge Plan - Follow Up Plan Condition: GUARDED Disposition: TRANSF TO SNF Instructions: Sepsis (GEN), Infectious Colitis (GEN) Additional Instructions: OOB and Transfers with assistance
--- NOTE | 2016-07-30 13:03 | CP.PCM.PN ---
Subjective - Date & Time of Evaluation Date of Evaluation: 07/15/16 Time of Evaluation: 13:03 - Subjective Subjective: Patient still on ventilator, hypotension noted, currently receiving IV hydration. Patient is awake, otherwise. But sedated. Possible common. On ventilator currently knee, full support ventilation. Still having episodes of diarrhea. Abdominal distention noted. Vital signs reviewed. The chest good air entry bilaterally regular heart sound, nontender abdomen, tympanic abdominal distention. Edema bilaterally in the legs noted. No sacral decubiti noted. Overall prognosis is guarded. WBC is improving. Chest x-ray ET tube in position, but no clear infiltrate. Assessment/recommendation: 81-year-old female with history of multiple medical problems arthritis, hypertension, seizure disorder, admitted now with severe sepsis, and septic shock complicated with a possible acute colitis. Hypotension. Patient still under critical situation. . Her to ventilation, and the blood pressure support the medications being done. Will continue to monitor and will follow the patient Objective - Vital Signs/Intake and Output Vital Signs (last 24 hours): Temp Pulse Resp BP Pulse Ox 97.5 F L 106 H 20 120/57 L 100 07/27/16 16:00 07/27/16 16:00 07/27/16 16:00 07/27/16 16:00 07/27/16 16:00 - Labs Labs: 07/27/16 13:35 07/27/16 13:35 PT 14.8 SECONDS (9.7-12.2) H 07/14/16 01:01 INR 1.3 07/14/16 01:01 APTT 37 SECONDS (21-34) H 07/14/16 01:01
--- NOTE | 2016-07-30 13:05 | CP.PCM.PN ---
Subjective - Date & Time of Evaluation Date of Evaluation: 07/16/16 Time of Evaluation: 13:05 - Subjective Subjective: Patient still on ventilator, hypotension noted, currently receiving IV hydration. Patient is awake, otherwise. But sedated. Possible common. On ventilator currently knee, full support ventilation. Still having episodes of diarrhea. Abdominal distention noted. Vital signs reviewed. The chest good air entry bilaterally regular heart sound, nontender abdomen, tympanic abdominal distention. Edema bilaterally in the legs noted. No sacral decubiti noted. Overall prognosis is guarded. WBC is improving. Chest x-ray ET tube in position, but no clear infiltrate. Assessment/recommendation: 81-year-old female with history of multiple medical problems arthritis, hypertension, seizure disorder, admitted now with severe sepsis, and septic shock complicated with a possible acute colitis. Hypotension. Patient still under critical situation. . Her to ventilation, and the blood pressure support the medications being done. Will continue to monitor and will follow the patient There is some improvement in the blood pressure noted. Urine output is better. Stool came as positive for C. difficile. Currently on vancomycin, Flagyl. ID evaluation is on. Continue the current treatment Objective - Vital Signs/Intake and Output Vital Signs (last 24 hours): Temp Pulse Resp BP Pulse Ox 97.5 F L 106 H 20 120/57 L 100 07/27/16 16:00 07/27/16 16:00 07/27/16 16:00 07/27/16 16:00 07/27/16 16:00 - Labs Labs: 07/27/16 13:35 07/27/16 13:35 PT 14.8 SECONDS (9.7-12.2) H 07/14/16 01:01 INR 1.3 07/14/16 01:01 APTT 37 SECONDS (21-34) H 07/14/16 01:01
--- NOTE | 2016-07-30 13:07 | CP.PCM.PN ---
Subjective - Date & Time of Evaluation Date of Evaluation: 07/17/16 Time of Evaluation: 13:06 - Subjective Subjective: There is some improvement in the blood pressure noted. Urine output is better. Stool came as positive for C. difficile. Currently on vancomycin, Flagyl. ID evaluation is on. Continue the current treatment Patient still on ventilator. Responding. Awake and responding, that patient wants the tube to be out. Denies any chest pain or shortness of breath. Abdominal distention, and diarrhea still persistently present On examination, vital signs stable, chest good air entry bilaterally regular heart sound nontender abdomen edema, bilaterally noted. Patient also receiving IV hydration, albumin. Start the patient on feeding. Continue the current treatment and will follow the patient Objective - Vital Signs/Intake and Output Vital Signs (last 24 hours): Temp Pulse Resp BP Pulse Ox 97.5 F L 106 H 20 120/57 L 100 07/27/16 16:00 07/27/16 16:00 07/27/16 16:00 07/27/16 16:00 07/27/16 16:00 - Labs Labs: 07/27/16 13:35 07/27/16 13:35 PT 14.8 SECONDS (9.7-12.2) H 07/14/16 01:01 INR 1.3 07/14/16 01:01 APTT 37 SECONDS (21-34) H 07/14/16 01:01
--- NOTE | 2016-07-30 13:11 | CP.PCM.PN ---
Subjective - Date & Time of Evaluation Date of Evaluation: 07/26/16 Time of Evaluation: 13:11 - Subjective Subjective: Patient is feeling much better. She is sitting up now. She is able to sit up and stand up. Participating in physical therapy. Poorly eating. Albumin is low Vital signs reviewed. Chest bilateral good air entry. Incentive spirometer started. Regular heart sound. Abdomen nontender edema, still noted. Labs reviewed. WBC count is improving Assessment/recommendation: 81-year-old female with history of seizure disorder, hypertension, colitis, history of arthritis, multiple joints, or jaw admitted with the severe sepsis, septic shock, acute respiratory failure, and C. difficile colitis. Patient developed a fluid overload state, currently receiving IV Lasix, and the diuretics. Bronchodilators, incentive sprain meter. She said disorder, stable, on medications at this time, neurology evaluation appreciated Will continue to monitor the patient. Possible discharge plan to the rehabitation. If the patient is able to participate in physical therapy Objective - Vital Signs/Intake and Output Vital Signs (last 24 hours): Temp Pulse Resp BP Pulse Ox 97.5 F L 106 H 20 120/57 L 100 07/27/16 16:00 07/27/16 16:00 07/27/16 16:00 07/27/16 16:00 07/27/16 16:00 - Labs Labs: 07/27/16 13:35 07/27/16 13:35 PT 14.8 SECONDS (9.7-12.2) H 07/14/16 01:01 INR 1.3 07/14/16 01:01 APTT 37 SECONDS (21-34) H 07/14/16 01:01
--- NOTE | 2016-07-30 13:11 | CP.PCM.PN ---
Subjective - Date & Time of Evaluation Date of Evaluation: 07/25/16 Time of Evaluation: 13:09 - Subjective Subjective: Patient is feeling much better. She is sitting up now. She is able to sit up and stand up. Participating in physical therapy. Poorly eating. Albumin is low Vital signs reviewed. Chest bilateral good air entry. Incentive spirometer started. Regular heart sound. Abdomen nontender edema, still noted. Labs reviewed. WBC count is improving Assessment/recommendation: 81-year-old female with history of seizure disorder, hypertension, colitis, history of arthritis, multiple joints, or jaw admitted with the severe sepsis, septic shock, acute respiratory failure, and C. difficile colitis. Patient developed a fluid overload state, currently receiving IV Lasix, and the diuretics. Bronchodilators, incentive sprain meter. She said disorder, stable, on medications at this time, neurology evaluation appreciated Objective - Vital Signs/Intake and Output Vital Signs (last 24 hours): Temp Pulse Resp BP Pulse Ox 97.5 F L 106 H 20 120/57 L 100 07/27/16 16:00 07/27/16 16:00 07/27/16 16:00 07/27/16 16:00 07/27/16 16:00 - Labs Labs: 07/27/16 13:35 07/27/16 13:35 PT 14.8 SECONDS (9.7-12.2) H 07/14/16 01:01 INR 1.3 07/14/16 01:01 APTT 37 SECONDS (21-34) H 07/14/16 01:01
== END 2016-07-27 20:00 | DRG 870 ==
LOC: C.ER 00:21 → C.9I 03:09 → C.5T 07-20 11:50 → C.9I 07-21 20:30
PROVIDERS: ADMIT Internal Medicine; ATTEND Internal Medicine
PROC: 5A1955Z Respiratory Ventilation, Greater than 96 Consecutive Hours (ICD-10-PCS; principal; 2016-07-14)
PROC: 0BH17EZ Insertion of Endotracheal Airway into Trachea, Via Natural or Artificial Opening (ICD-10-PCS; 2016-07-14)
DX: A41.4 Sepsis due to anaerobes (principal); J96.00 Acute respiratory failure, unspecified whether with hypoxia or hypercapnia; R65.21 Severe sepsis with septic shock; A04.7 Enterocolitis due to Clostridium difficile; E87.2 Acidosis; E87.1 Hypo-osmolality and hyponatremia; I11.0 Hypertensive heart disease with heart failure; I50.9 Heart failure, unspecified; G40.409 Other generalized epilepsy and epileptic syndromes, not intractable, without status epilepticus; D63.8 Anemia in other chronic diseases classified elsewhere; K21.9 Gastro-esophageal reflux disease without esophagitis; R32 Unspecified urinary incontinence; R33.9 Retention of urine, unspecified; Z96.641 Presence of right artificial hip joint; Z96.653 Presence of artificial knee joint, bilateral; K59.09 Other constipation; M19.90 Unspecified osteoarthritis, unspecified site

== ENCOUNTER 2018-07-13 13:30 | Outpatient (CLI) | payer MEDICARE | END 2018-07-13 13:31 | disposition home or self-care (01) | LOC: C.CTH 13:30 ==

== ENCOUNTER 2018-07-26 13:56 | Outpatient (CLI) | payer MEDICARE | END 2018-07-26 13:57 | disposition home or self-care (01) | LOC: C.USIC 13:56 | DX: E04.1 Nontoxic single thyroid nodule (principal) ==